=== PATIENT | male | born 1945 | race Caucasian/White ===

== ENCOUNTER → 2017-07-21 12:32 | Outpatient (CLI) | payer MEDICARE, SELFPAY ==
[2017-07-21 13:34] LABS: PSA,Total- Diagnostic < 0.01 ng/mL (0.0-4.0)
== END ==
PROVIDERS: Family Provider Family Medicine Geriatric Medicine; PCP Family Medicine Geriatric Medicine
DX: C61 Malignant neoplasm of prostate (principal)
CPT/HCPCS: 36415; 84153

== ENCOUNTER → 2017-09-21 13:14 | Outpatient (CLI) | payer MEDICARE, SELFPAY ==
[2017-09-21 17:05] LABS: Absolute Lymphocyte Count 1.82 X10^3/ul (0.83-4.51); Absolute Neutrophil Count 4.1 X10^3/uL (2.0-7.7); Basophil# 0.05 X10^3/uL; Basophil% 0.8 % (0-1); Eosinophil# 0.13 X10^3/uL; Hematocrit 40.2 % (40-54); Hemoglobin 13.1 g/dl (13.0-16.5); Lymphocyte # 1.82 X10^3/ul (4.0); Lymphocyte % 27.5 % (19-41); Mean Corp Hgb Conc 32.6 g/gl (32-36); Mean Corpuscular Hgb 25.5 pg (27.0-32.0); Mean Corpuscular Volume 78.2 fL (80-94); Mean Platelet Vol. 11.2 fl (6.2-12.0); Monocyte# 0.53 X10^3/uL; Neutrophil # 4.06 X10^3/uL (2.7-7.7); Neutrophil % 61.2 % (47-70); Platelet Count 248 K/mm3 (150-450); RBC Distribution Width CV 14.7 % (11.6-14.6); RBC Distribution Width SD 41.3 fl (35.1-43.9); Red Blood Count 5.14 M/mm3 (4.6-6.2); White Blood Count 6.6 K/mm3 (4.4-11.0)
[2017-09-21 17:37] LABS: POSITIVE COUNT NO; POSITIVE DIFFERENTIAL NO; POSITIVE MORPHOLOGY NO
[2017-09-21 17:53] LABS: AST(SGOT) 18 U/L (15-37); Alanine Aminotransfer ALT/SGPT 25 U/L (16-61); Albumin, Serum 3.8 g/dL (3.2-5.0); Alkaline Phosphatase 89 U/L (45-117); Anion Gap 9 (5-15); BUN 17 mg/dL (7-18); BUN/Creat Ratio 15.7 RATIO (10-20); Calcium,Total 9.1 mg/dL (8.5-10.1); Chloride 105 mmol/L (98-107); Creatinine, Serum 1.08 mg/dL (0.70-1.30); EST Glomerular Filtration Rate 71 mL/min (>60); Est Glom Filt Rate - Afr Amer 86 mL/min (>60); Globulin 3.8 g/dL (2.2-4.2); Glucose 75 mg/dL (74-106); Potassium 4.5 mmol/L (3.5-5.1); Protein, Total 7.6 g/dL (6.4-8.2); Sodium Level 142 mmol/L (136-145); Thyroid Stim Hormone (TSH) 1.61 uIU/mL (0.358-3.74)
[2017-09-22 08:57] LABS: Vitamin D,25 Hydroxy 35.5 ng/mL (29.95-100.01)
== END ==
PROVIDERS: Family Provider Family Medicine Geriatric Medicine; PCP Family Medicine Geriatric Medicine; Visit Provider Family Medicine Geriatric Medicine
DX: E11.9 Type 2 diabetes mellitus without complications (principal); E55.9 Vitamin D deficiency, unspecified; I10 Essential (primary) hypertension
CPT/HCPCS: 36415; 80053; 82306; 84443; 85025

== ENCOUNTER → 2018-03-24 12:19 | Outpatient (CLI) | payer MEDICARE, SELFPAY ==
[2018-03-24 14:03] LABS: Absolute Lymphocyte Count 1.49 X10^3/ul (0.83-4.51); Absolute Neutrophil Count 3.3 X10^3/uL (2.0-7.7); Basophil# 0.07 X10^3/uL; Basophil% 1.3 % (0-1); Eosinophil# 0.14 X10^3/uL; Eosinophils% 2.6 % (0-5); Hematocrit 40.8 % (40-54); Hemoglobin 12.8 g/dl (13.0-16.5); Lymphocyte # 1.49 X10^3/ul (4.0); Lymphocyte % 27.2 % (19-41); Mean Corp Hgb Conc 31.4 g/gl (32-36); Mean Corpuscular Hgb 24.9 pg (27.0-32.0); Mean Corpuscular Volume 79.2 fL (80-94); Mean Platelet Vol. 11.1 fl (6.2-12.0); Monocyte% 9.1 % (0-10); Neutrophil # 3.26 X10^3/uL (2.7-7.7); Neutrophil % 59.6 % (47-70); Platelet Count 225 K/mm3 (150-450); RBC Distribution Width CV 14.3 % (11.6-14.6); RBC Distribution Width SD 40.3 fl (35.1-43.9); Red Blood Count 5.15 M/mm3 (4.6-6.2); White Blood Count 5.5 K/mm3 (4.4-11.0)
[2018-03-24 14:07] LABS: POSITIVE COUNT NO; POSITIVE DIFFERENTIAL NO; POSITIVE MORPHOLOGY NO
[2018-03-24 14:17] LABS: Vitamin D,25 Hydroxy 41.2 ng/mL (29.95-100.01)
[2018-03-24 14:29] LABS: AST(SGOT) 11 U/L (15-37); Alanine Aminotransfer ALT/SGPT 23 U/L (16-61); Albumin, Serum 3.5 g/dL (3.2-5.0); Alkaline Phosphatase 89 U/L (45-117); Anion Gap 8 (5-15); BUN 17 mg/dL (7-18); BUN/Creat Ratio 16.8 RATIO (10-20); Calcium,Total 8.6 mg/dL (8.5-10.1); Chloride 103 mmol/L (98-107); Creatinine, Serum 1.01 mg/dL (0.70-1.30); EST Glomerular Filtration Rate 77 mL/min (>60); Est Glom Filt Rate - Afr Amer 93 mL/min (>60); Globulin 3.6 g/dL (2.2-4.2); Glucose 239 mg/dL (74-106); Potassium 4.1 mmol/L (3.5-5.1); Protein, Total 7.1 g/dL (6.4-8.2); Sodium Level 136 mmol/L (136-145); Thyroid Stim Hormone (TSH) 1.29 uIU/mL (0.358-3.74)
--- OUTSIDE RECORDS SUMMARY | 2018-05-29 04:20 | XMS RPT_ITS ---
:1945 Author Organization OHIP Care Team Providers Name Role Phone Elmo, Augusto Chi Attending Unavailable Elmo, Augusto Chi Primary Care Unavailable CHERYL WHITE Attending Unavailable CHERYL WHITE Referring Unavailable Elmo, Augusto Chi Primary Care Unavailable Elmo, Augusto Chi Attending Unavailable Elmo, Augusto Chi Primary Care Unavailable ANA ROLDAN Attending Unavailable OMEGA RAWLS Referring Unavailable ANA ROLDAN Attending Unavailable DANOMEGA MACDONALD Referring Unavailable ELMO, AUGUSTO-CHI Primary Care Unavailable PROBLEMS PROBLEMS DATE TYPE CONDITION / ATTENDING STATUS SOURCE CODE 07/20/2017 Active Malignant JARVIS, Active [facility] neoplasm of [facility] Other [place] prostate / Repository C61(ICD-10) 07/20/2017 Admitting Unknown / JARVIS, Active [facility] diagnosis UNK(Unknown) [facility] Repository PROCEDURES PROCEDURES No Procedure Records FoundRESULTS RESULTS CBC W/DIFF, AUTOMATED Collected: 03/24/2018 Status: F Source: [place] 12:20 PM [facility] REPOSITORY TYPE CODE TESTS RESULT OUT OF RANGE REFERENCE UNITS LAB L100.1000 4.4-11.0 K/mm3 Normal WBC 5.5 LAB L100.1200 4.6-6.2 M/mm3 Normal RBC 5.15 LAB L100.1300 13.0-16.5 g/dl Low HGB 12.8 LAB L100.1400 40-54 % Normal HCT 40.8 LAB L100.1500 80-94 fL Low MCV 79.2 LAB L100.1600 27.0-32.0 pg Low MCH 24.9 LAB L100.1700 32-36 g/gl Low MCHC 31.4 LAB L100.1810 11.6-14.6 % Normal RDW CV 14.3 LAB L100.1820 35.1-43.9 fl Normal RDW SD 40.3 LAB L100.1900 150-450 K/mm3 Normal PLT 225 LAB L100.2000 6.2-12.0 fl Normal MPV 11.1 LAB L100.2100 47-70 % Normal NEUT% 59.6 LAB L100.2200 19-41 % Normal LY% 27.2 LAB L100.2300 0-10 % Normal MONO% 9.1 LAB L100.2400 0-5 % Normal EO% 2.6 LAB L100.2500 0-1 % High BASO% 1.3 LAB L100.2550 0.0-0.9 % Normal IM GRAN % 0.200 Result Comment: IG% - Immature Granulocytes (promyelocytes, myelocytes and metamyelocytes) > 1% indicates that a LEFT SHIFT is Present. LAB L100.2620 2.0-7.7 X10 3/uL Normal Absolute Neut 3.3 LAB L100.2720 0.83-4.51 X10 3/ul Normal Absolute Lymph 1.49 Performed By: #### L100.0100 #### [facility] [address], [place], [address] VITAMIN D,25 HYDROXY Collected: 03/24/2018 Status: F Source: [place] 12:20 PM [facility] REPOSITORY TYPE CODE TESTS RESULT OUT OF RANGE REFERENCE UNITS LAB L506.1000 29.95-100.01 ng/mL Normal Vitamin D 41.2 25-OH Result Comment: Vitamin D 25(OH) Status Range Deficiency <20 ng/mL (50nmol/L) Insuffciency 20 - 30 ng/mL (50 - 75 nmol/L) Sufficiency 30 - 100 ng/mL (75 - 250 nmol/L) Toxicity >100 ng/mL (>250 nmol/L) Performed By: #### L506.1000 #### [facility] [address] [place], [address] COMPREHENSIVE METABOLIC Collected: 03/24/2018 Status: F Source: [place] MTZ 12:20 PM [facility] REPOSITORY TYPE CODE TESTS RESULT OUT OF RANGE REFERENCE UNITS LAB L501.0100 74-106 mg/dL High GLU 239 Result Comment: Glucose result greater than or equal to 200 mg/dL suggests DIABETES MELLITUS per A.D.A. criteria. Please note revised GLUCOSE reference range effective 2017. LAB L501.1000 7-18 mg/dL Normal BUN 17 LAB L501.1100 0.70-1.30 mg/dL Normal CREAT,SERUM 1.01 Result Comment: The validity of the calculated GFR AND GFRAA in patients over 70 years has not been determined. Clinical correlation is essential. LAB L501.1110 >60 mL/min Normal EST GFR 77 Result Comment: Non- GFR Calc LAB L501.1115 >60 mL/min Normal EST GFR - AA 93 Result Comment: GFR Calc LAB L501.1300 10-20 RATIO Normal BUN/CRE 16.8 LAB L501.1500 6.4-8.2 g/dL T Normal PROT 7.1 LAB L501.1800 3.2-5.0 g/dL Normal ALB 3.5 LAB L501.1950 2.2-4.2 g/dL Normal GLOB 3.6 LAB L501.2000 0.9-2.4 RATIO Normal A/G 1.0 LAB L501.2200 8.5-10.1 mg/dL CA Normal 8.6 LAB L501.4100 15-37 U/L Low AST 11 LAB L501.4305 45-117 U/L Normal ALK P 89 LAB L501.4405 16-61 U/L Normal ALT 23 LAB L501.4600 0.20-1.00 mg/dL T Normal BILI 0.40 LAB L501.5300 136-145 mmol/L NA Normal 136 LAB L501.5600 3.5-5.1 mmol/L K Normal 4.1 LAB L501.5900 98-107 mmol/L CL Normal 103 LAB L501.6100 21.0-32.0 mmol/L Normal CO2 25.0 LAB L501.6200 5-15 Normal GAP 8 Performed By: #### L500.4050, L501.9585 #### [facility] [address] [place], [place], [address] THYROID STIM HORMONE Collected: 03/24/2018 Status: F Source: [place] (TSH) 12:20 PM [facility] REPOSITORY TYPE CODE TESTS RESULT OUT OF RANGE REFERENCE UNITS LAB L501.9520 0.358-3.74 uIU/mL Normal TSH 1.29 Performed By: #### L500.4050, L501.9520 #### [facility] [address] [facility] [place], [address] CBC W/DIFF, AUTOMATED Collected: 09/21/2017 Status: F Source: [place] 1:17 PM [facility] REPOSITORY TYPE CODE TESTS RESULT OUT OF RANGE REFERENCE UNITS LAB L100.1000 4.4-11.0 K/mm3 Normal WBC 6.6 LAB L100.1200 4.6-6.2 M/mm3 Normal RBC 5.14 LAB L100.1300 13.0-16.5 g/dl Normal HGB 13.1 LAB L100.1400 40-54 % Normal HCT 40.2 LAB L100.1500 80-94 fL Low MCV 78.2 LAB L100.1600 27.0-32.0 pg Low MCH 25.5 LAB L100.1700 32-36 g/gl Normal MCHC 32.6 LAB L100.1810 11.6-14.6 % High RDW CV 14.7 LAB L100.1820 35.1-43.9 fl Normal RDW SD 41.3 LAB L100.1900 150-450 K/mm3 Normal PLT 248 LAB L100.2000 6.2-12.0 fl Normal MPV 11.2 LAB L100.2100 47-70 % Normal NEUT% 61.2 LAB L100.2200 19-41 % Normal LY% 27.5 LAB L100.2300 0-10 % Normal MONO% 8.0 LAB L100.2400 0-5 % Normal EO% 2.0 LAB L100.2500 0-1 % Normal BASO% 0.8 LAB L100.2550 0.0-0.9 % Normal IM GRAN % 0.500 Result Comment: IG% - Immature Granulocytes (promyelocytes, myelocytes and metamyelocytes) > 1% indicates that a LEFT SHIFT is Present. LAB L100.2620 2.0-7.7 X10 3/uL Normal Absolute Neut 4.1 LAB L100.2720 0.83-4.51 X10 3/ul Normal Absolute Lymph 1.82 Performed By: #### L100.0100 #### [facility] [address] [place], [address] COMPREHENSIVE METABOLIC Collected: 09/21/2017 Status: F Source: [place] [facility] 1:17 PM [facility] REPOSITORY TYPE CODE TESTS RESULT OUT OF RANGE REFERENCE UNITS LAB L501.0100 74-106 mg/dL Normal GLU 75 Result Comment: Please note revised GLUCOSE reference range effective 2017. LAB L501.1000 7-18 mg/dL Normal BUN 17 LAB L501.1100 0.70-1.30 mg/dL Normal CREAT,SERUM 1.08 Result Comment: The validity of the calculated GFR AND GFRAA in patients over 70 years has not been determined. Clinical correlation is essential. LAB L501.1110 >60 mL/min Normal EST GFR 71 Result Comment: Non- GFR Calc LAB L501.1115 >60 mL/min Normal EST GFR - AA 86 Result Comment: GFR Calc LAB L501.1300 10-20 RATIO Normal BUN/CRE 15.7 LAB L501.1500 6.4-8.2 g/dL T Normal PROT 7.6 LAB L501.1800 3.2-5.0 g/dL Normal ALB 3.8 LAB L501.1950 2.2-4.2 g/dL Normal GLOB 3.8 LAB L501.2000 0.9-2.4 RATIO Normal A/G 1.0 LAB L501.2200 8.5-10.1 mg/dL CA Normal 9.1 LAB L501.4100 15-37 U/L Normal AST 18 LAB L501.4305 45-117 U/L Normal ALK P 89 LAB L501.4405 16-61 U/L Normal ALT 25 LAB L501.4600 0.20-1.00 mg/dL T Normal BILI 0.20 LAB L501.5300 136-145 mmol/L NA Normal 142 LAB L501.5600 3.5-5.1 mmol/L K Normal 4.5 LAB L501.5900 98-107 mmol/L CL Normal 105 LAB L501.6100 21.0-32.0 mmol/L Normal CO2 28.0 LAB L501.6200 5-15 Normal GAP 9 Performed By: #### L500.4050, L501.9520 #### [facility] [address] [place], [address] THYROID STIM HORMONE Collected: 09/21/2017 Status: F Source: [place] (TSH) 1:17 PM [facility] REPOSITORY TYPE CODE TESTS RESULT OUT OF RANGE REFERENCE UNITS LAB L501.9520 0.358-3.74 uIU/mL Normal TSH 1.61 Performed By: #### L500.4050, L501.9520 #### [facility] [address] [facility] [place], [address] VITAMIN D,25 HYDROXY Collected: 09/21/2017 Status: F Source: [place] 1:17 PM [facility] REPOSITORY TYPE CODE TESTS RESULT OUT OF RANGE REFERENCE UNITS LAB L506.1000 29.95-100.01 ng/mL Normal Vitamin D 35.5 25-OH Result Comment: Vitamin D 25(OH) Status Range Deficiency <20 ng/mL (50nmol/L) Insuffciency 20 - 30 ng/mL (50 - 75 nmol/L) Sufficiency 30 - 100 ng/mL (75 - 250 nmol/L) Toxicity >100 ng/mL (>250 nmol/L) Performed By: #### L506.1000 #### [facility] [address] [facility] [place], [place], [address] PSA,TOTAL- DIAGNOSTIC Collected: 07/21/2017 Status: F Source: [place] 12:43 PM [facility] REPOSITORY TYPE CODE TESTS RESULT OUT OF RANGE REFERENCE UNITS LAB L501.9940 0.0-4.0 ng/mL PSA, Normal DIAGNOSTIC < 0.01 Result Comment: This test was performed using the TPSA assay method for the Corso12 chemistry system. Values obtained with different assay methods cannot be used interchangably. When changing PSA assays in the course of monitoring a patient, additional sequential testing should be carried out to confirm baseline values. Performed By: #### L501.9940 #### [facility] [place], [address] PROGRESS Observed: 07/20/2017 Status: COMPLETED Source: [place] 11:11 AM CLINIC OTHER CAMPUS REPOSITORY HNO ID: [id number] Author: Ana Roldan DO Service: (none) Author Type: Physician Type: Progress Notes Filed: 07/20/2017 11:15 AM Note Text: ?? [facility] [place] [facility] LOCATION: [address] [place] [address] ESTABLISHED PATIENT PATIENT INFO: Jimbo Ashford JR 72 year old Chief Complaint: Prostate cancer HPI Jimbo is a 72 M with hx of Prostate Cancer S/P RRP 05/09/2008 PSA 4.6 +right margin PSA has been undetectable Has ED 1-Duration: 2017 2-Location: prostate 3-Severity: N/A 4-Quality: Not applicable 5-Context: N/A 6-Timing: N/A 7-Modifying factors: No treatment prior to referral 8-Associated signs AND symptoms: no additional symptoms PATHOLOGY: In chart LAB: No results found for: WBC, RBC, HB, HCT, MCV, MCH, MCHC, RDWCV, PLT, MPV, NEUTP, LYMPHP, MONOP, EODINP, BASOP, ABSNEUT, ABSLYM, ABSMONO, ABSEOSIN, ABSBASO No results found for: CREAT PSA (ng/mL) Date Value 07/14/2016 <0.04 12/20/2012 <0.01 pH, Urine Date Value Ref Range Status 07/20/2017 6.5 4.5 - 8.0 Final Specific [place], Ur Date Value Ref Range Status 07/20/2017 1.010 1.005 - 1.030 Final Glucose, Urine Date Value Ref Range Status 07/20/2017 neg Neg mg/dL Final Bilirubin, Urine Date Value Ref Range Status 07/20/2017 neg Neg Final Ketones, Urine Date Value Ref Range Status 07/20/2017 neg Neg Final Hemoglobin/Blood,Ur Date Value Ref Range Status 07/20/2017 neg Neg Final Protein, Urine Date Value Ref Range Status 07/20/2017 neg Neg mg/dL Final Nitrites Date Value Ref Range Status 07/20/2017 neg Neg Final Leukocytes Date Value Ref Range Status 07/20/2017 neg Neg Final IMAGING: None ALLERGIES: ALLERGIES No Known Allergies MEDICATIONS: telmisartan/hydrochlorothiazid(MICARDIS HCT 80 MG-12.5 MG TAB) Take one(1) tablet daily. metformin hcl(GLUCOPHAGE 500 MG TAB) Take one to tablets daily. LISINOPRIL 5 MG TAB Take one(1) tablet daily. LOVASTATIN 40 MG TAB Take one(1) tablet daily. aspirin(HALFPRIN 81 MG TAB) Take one(1) tablet daily. INSULIN DETEMIR 100 UNIT/ML SUB-Q Pt takes 30 units daily. 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 PHYSICAL EXAMINATION Ht 175.3 cm (5' 9) Wt 83.9 kg (185 lb) BMI 27.32 kg/m? General appearance: Well appearing, alert, in no acute distress, well-hydrated, well nourished Skin: Skin color, texture, turgor normal, no suspicious rashes or lesions Head: Normocephalic, no masses, lesions, tenderness or abnormalities Abdomen: Normal abdominal exam, Abdomen soft, non-tender. Bowel sounds normal. No masses, organomegaly Genitourinary: MALE EXAM: Exam NOT Indicated PVR: NA IMPRESSION/PLAN: Prostate cancer RRP 05/2008 PSA last year 0.04 Needs new PSA F/U in 1 year UA and PVR next visit DO BHARAT Carpenter Observed: 07/20/2017 Status: COMPLETED Source: [place] 10:45 AM CLINIC OTHER CAMPUS REPOSITORY Office Visit (AKURFL) JIMBO ASHFORD JR ([id number]) 1945 M Date Time Provider Department 07/20/17 10:45 AM ANA ROLDAN During your visit today, we recorded the following information about you: Weight Height 83.9 kg 1.753 m Ana Roldan DO, MBA, DO 07/20/2017 11:15 AM Signed ?? [facility] [place] [facility] LOCATION: [address] [place] [address] ESTABLISHED PATIENT PATIENT INFO: Jimbo Ashford JR 72 year old Chief Complaint: Prostate cancer HPI Jimbo is a 72 M with hx of Prostate Cancer S/P RRP 05/09/2008 PSA 4.6 +right margin PSA has been undetectable Has ED 1-Duration: 2017 2-Location: prostate 3-Severity: N/A 4-Quality: Not applicable 5-Context: N/A 6-Timing: N/A 7-Modifying factors: No treatment prior to referral 8-Associated signs AND symptoms: no additional symptoms PATHOLOGY: In chart LAB: No results found for: WBC, RBC, HB, HCT, MCV, MCH, MCHC, RDWCV, PLT, MPV, NEUTP, LYMPHP, MONOP, EODINP, BASOP, ABSNEUT, ABSLYM, ABSMONO, ABSEOSIN, ABSBASO No results found for: CREAT PSA (ng/mL) Date Value 07/14/2016 <0.04 12/20/2012 <0.01 pH, Urine Date Value Ref Range Status 07/20/2017 6.5 4.5 - 8.0 Final Specific [place], Ur Date Value Ref Range Status 07/20/2017 1.010 1.005 - 1.030 Final Glucose, Urine Date Value Ref Range Status 07/20/2017 neg Neg mg/dL Final Bilirubin, Urine Date Value Ref Range Status 07/20/2017 neg Neg Final Ketones, Urine Date Value Ref Range Status 07/20/2017 neg Neg Final Hemoglobin/Blood,Ur Date Value Ref Range Status 07/20/2017 neg Neg Final Protein, Urine Date Value Ref Range Status 07/20/2017 neg Neg mg/dL Final Nitrites Date Value Ref Range Status 07/20/2017 neg Neg Final Leukocytes Date Value Ref Range Status 07/20/2017 neg Neg Final IMAGING: None ALLERGIES: ALLERGIES No Known Allergies MEDICATIONS: telmisartan/hydrochlorothiazid(MICARDIS HCT 80 MG-12.5 MG TAB) Take one(1) tablet daily. metformin hcl(GLUCOPHAGE 500 MG TAB) Take one to tablets daily. LISINOPRIL 5 MG TAB Take one(1) tablet daily. LOVASTATIN 40 MG TAB Take one(1) tablet daily. aspirin(HALFPRIN 81 MG TAB) Take one(1) tablet daily. INSULIN DETEMIR 100 UNIT/ML SUB-Q Pt takes 30 units daily. 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 PHYSICAL EXAMINATION Ht 175.3 cm (5' 9) Wt 83.9 kg (185 lb) BMI 27.32 kg/m? General appearance: Well appearing, alert, in no acute distress, well-hydrated, well nourished Skin: Skin color, texture, turgor normal, no suspicious rashes or lesions Head: Normocephalic, no masses, lesions, tenderness or abnormalities Abdomen: Normal abdominal exam, Abdomen soft, non-tender. Bowel sounds normal. No masses, organomegaly Genitourinary: MALE EXAM: Exam NOT Indicated PVR: NA IMPRESSION/PLAN: Prostate cancer RRP 05/2008 PSA last year 0.04 Needs new PSA F/U in 1 year UA and PVR next visit Ana Roldan DO MBA Referring Provider: OMEGA RAWLS (HIST) [[id number]] Allergies As of Date: 07/20/2017 (No Known Allergies) Date Reviewed: 07/20/2017 Reviewed by: Ana Roldan DO - Fully Assessed Reason for Visit: Yearly Exam [187] Prostate Cancer [590] Primary Visit Diagnosis:Prostate cancer (HCC) [C61] Order(s):UA DIP B/O [3687522] Order #: [id number] PSA/PROSTSPECAG DIAG [SQPSA] Order #: [id number] FUTURE Prescriptions as of 07/20/2017 Sig: * MICARDIS HCT 80 MG-12.5 MG TA* Take one(1) tablet daily. * GLUCOPHAGE 500 MG TABLET Take one to tablets daily. * LISINOPRIL 5 MG TABLET Take one(1) tablet daily. * LOVASTATIN 40 MG TABLET Take one(1) tablet daily. * HALFPRIN 81 MG TABLET,DELAYED* Take one(1) tablet daily. * INSULIN DETEMIR (U-100) 100 U* Pt takes 30 units daily. Problem List As Of Date 07/20/2017 Noted Resolved SEBORRHEIC KERATOSES INFLAMED [L82.0] INVALID FOR* SEBORRHEIC KERATOSIS NOS [L82.1] INVALID FOR* ACTINIC DAMAGE///CHR SOLAR SKIN DAMAGE NOS [L57*INVALID FOR* SEBORRHEIC DERMATITIS NOS [L21.9] INVALID FOR* SOLAR LENTIGENES///DYSCHROMIA OTHER [L81.9] INVALID FOR* Radiculopathy [M54.10] Disposition: Return in about 1 year (around 07/20/2018). Follow-up and Disposition History Recorded Encounter Status:Closed by ANA ROLDAN DO, MBA on 07/20/17 ALLERGIES ALLERGIES DATE TYPE / CODE NAME / CODE REACTION SEVERITY SOURCE Drug NO KNOWN [facility] Class/50602 ALLERGIES Other [place] 1003(SNOMED Repository CT) [id number] NO KNOWN [facility] 6([facility] CT) Repository ENCOUNTERS ENCOUNTERS ADMIT/DISCHARGE ACCOUNT NUMBER ADMITTING ENCOUNTER LOCATION SOURCE CLASS 03/24/2018 [id number] Ambulatory [facility] ding:POLAB3 Repository 09/21/2017 [id number] Ambulatory [facility] ding:POLAB3 Repository 07/21/2017 [id number] [facility] ding:LAB Repository 07/20/2017/07/21/19 [id number] Ambulatory [address] Other [place] Repository 07/20/2017/07/21/19 [id number] Ambulatory [place] MEDICAL Repository CENTERBuildi ng:MARIANO PAYERS PAYERS ENCOUNTER GUARANTOR PAYER SUBSCRIBER SOURCE 03/24/2018 JIMBO ASHFORD Primary JIMBO [place] [id number] Insurance:ANTHEM [place]OB[place] PPOPolicy [id number] [id number]: [phone]) Number: Repository [phone] () [id number] Date:0869-21-49XY [address] [place] [id number]: 03/24/2018 Secondary NOT GIVENUNK [place] Insurance:SELF PAY [facility] Number: Effective Repository Date:2018-03-24 09/21/2017 JIMBO ASHFORD Primary JIMBO [place] [id number] Insurance:ANTHNAYELY JRDOB: [place] PPOPolicy [id number] [id number]: [phone]) Number: Repository [phone] () [id number] Date:1175-17-45HE [id number] [place] [id number]: 09/21/2017 Secondary NOT GIVENUNK [place] Insurance:SELF PAY [facility] Number: Effective Repository Date:2017-09-21 07/21/2017 JIMBO ASHFORD Primary JIMBO [place] [id number] [facility] Insurance:ANTHEM JRDOB: [place] PPOPolicy [id number] Hospital [address]Kls: (330) Number: Repository [phone] () [id number] Date:1490-55-09VK [id number] [place] [id number]: 07/21/2017 Secondary NOT GIVENUNK [place] Insurance:SELF PAY [facility] Number: Effective Repository Date:2017-07-21 07/20/2017 JIMBO ASHFORD Primary JIMBO A[facility] JRDOB: Insurance:CRISSY PINAB: Health System [facility] [id number] Repository [place], [place] Number: [id number]: [phone]) [id number] [phone] () Date:
== END ==
PROVIDERS: Family Provider Family Medicine Geriatric Medicine; PCP Family Medicine Geriatric Medicine; Visit Provider Family Medicine Geriatric Medicine
DX: E11.9 Type 2 diabetes mellitus without complications (principal); E55.9 Vitamin D deficiency, unspecified; I10 Essential (primary) hypertension
CPT/HCPCS: 36415; 80053; 82306; 84443; 85025

== ENCOUNTER → 2018-05-31 11:33 | Outpatient (CLI) | payer MEDICARE, SELFPAY ==
--- NOTE | 2018-05-31 11:38 | CT_ITS ---
STUDY: CTA OF THE BRAIN REASON FOR EXAM: Male, 73 years old. Family history of cerebral aneurysm, denies neuro symptoms, headache or dizziness. RADIATION DOSAGE (If Supplied By Facility): CTDIvol = ( 31.27 ) mGy, DLP = ( 1477.29 ) mGycm TECHNIQUE: CT angiography was performed with a multi-detector CT scanner. Data acquisition was obtained from the skull base through the vertex following intravenous administration of 100mL IV Isovue 370. MIP images were reconstructed from the axial data set. Post-processing of the angiographic images was performed, with multiplanar reformation and 3D reconstruction. Individualized dose optimization techniques were used for this CT. COMPARISON: None. FINDINGS: Normal bilateral petrous carotid arteries. Normal right cavernous carotid artery with a normal supraclinoid bifurcation. Normal left cavernous carotid artery with a normal supraclinoid bifurcation. Normal right A1 segments of the anterior cerebral artery. Normal left A1 segments of the anterior cerebral artery. Normal intact anterior communicating artery (ACOM). Normal bilateral A2 segments of the anterior cerebral arteries. Normal right M1 and M2 segments of the middle cerebral arteries, with a normal M1 bifurcation. Normal left M1 and M2 segments of the middle cerebral arteries, with a normal M1 bifurcation. Normal right posterior communicating artery (PCOM). Normal left posterior communicating artery (PCOM). Normal bilateral vertebral arteries. Normal basilar artery with a normal basilar bifurcation. The visualized bilateral superior cerebellar (SCA) arteries are normal. Normal bilateral P1, P2 and visualized P3 segments of the posterior cerebral arteries. There is no demonstrated aneurysm of the platinum of [place]. There is no demonstrated abnormality of the visualized brain. CT/CTA Head W/WO Contrast IMPRESSION: Normal platinum of [place] without a demonstrated aneurysm or hemodynamically significant stenosis. Electronically Signed: Silverio Salmeron MD at 23:18 EDT , Service support ,
--- NOTE | 2018-05-31 11:39 | CT_ITS ---
STUDY: CTA NECK WITH CONTRAST REASON FOR EXAM: Male, 73 years old. Family history of cerebral aneurysm, denies neuro symptoms, headache or dizziness. RADIATION DOSAGE (If Supplied By Facility): CTDIvol = ( 31.27 ) mGy, DLP = ( 1477.29 ) mGycm TECHNIQUE: CT angiography with multi-detector data acquisition was performed from the aortic arch to the skull base following intravenous administration of 100mL IV Isovue 370. MIP images were reconstructed from the axial data set. Post-processing of the angiographic images was performed, with multiplanar reformation and 3D reconstruction. Individualized dose optimization techniques were used for this CT. COMPARISON: None. FINDINGS: AORTIC ARCH: There is a bovine origin of the great vessels arising from the aortic arch with a common origin of the brachiocephalic and left common carotid artery. Normal origin of the left subclavian artery. RIGHT CAROTID ARTERIES: Normal right common carotid artery (CCA). There is mild atherosclerotic plaque formation with minimal narrowing of the right carotid bulb. Normal origin of the right internal carotid (ICA) artery without a hemodynamically significant stenosis. Normal visualized cervical portion of the right internal carotid artery. Normal origin of the right external carotid artery (ECA). LEFT CAROTID ARTERIES: Normal left common carotid artery (CCA). There is mild atherosclerotic plaque formation with minimal narrowing of the left carotid bulb. Normal origin of the left internal carotid (ICA) artery without a hemodynamically significant stenosis. Normal visualized cervical portion of the left internal carotid artery. Normal origin of the left external carotid artery (ECA). VERTEBRAL ARTERIES: Normal bilateral vertebral arteries. CT/CTA Neck W/WO Contrast IMPRESSION: Within normal limits for age. No occlusions and no measurable stenoses. Electronically Signed: Silverio Salmeron MD at 23:23 EDT , Service support ,
--- NOTE | 2018-05-31 11:41 | RAD_ITS ---
STUDY: X-RAY - LEFT KNEE REASON FOR EXAM: Male, 73 years old. Fall. Knee sprain. TECHNIQUE: 2 view(s) of the knee. COMPARISON: None. FINDINGS: Normal visualized distal femur. Normal visualized proximal tibia and fibula. Normal proximal tibiofibular articulation. There is no acute fracture, dislocation or destructive osseous pathology. There is mild degenerative arthrosis of the medial femorotibial compartment. Normal lateral femorotibial compartment. There is mild degenerative arthrosis of the patellofemoral articulation. There is no demonstrated joint effusion. The soft tissue structures are unremarkable. RAD/Knee 1 or 2 Views IMPRESSION: Minimal arthrosis left knee without fracture or dislocation. Electronically Signed: Tray Gómez DO at 12:56 EDT Tel [phone], Service support ,
[2018-05-31 12:06] LABS: CREATININE FINGERSTICK 1.4 mg/dL (0.70-1.30)
== END ==
PROVIDERS: Family Provider Family Medicine Geriatric Medicine; PCP Family Medicine Geriatric Medicine; Referring Provider Family Medicine Geriatric Medicine; Visit Provider Family Medicine Geriatric Medicine
DX: I67.1 Cerebral aneurysm, nonruptured (principal); S83.92XA Sprain of unspecified site of left knee, initial encounter
CPT/HCPCS: 70496; 70498; 73560; Q9967

== ENCOUNTER → 2018-07-29 09:51 | Outpatient (CLI) | payer MEDICARE, SELFPAY ==
--- NOTE | 2018-07-29 09:58 | MRI_ITS ---
STUDY: MRI LEFT KNEE REASON FOR EXAM: Left knee pain after slipping injury. TECHNIQUE: Standardized fat and water weighted pulse sequences were obtained in all 3 orthogonal planes. COMPARISON: Radiographs 05/31/2018. FINDINGS: There is very mild intrasubstance myxoid degeneration of the posterior horn of the medial meniscus without discrete medial meniscal tear. Normal hyaline cartilage of the medial femorotibial compartment. Normal medial femoral condyle and tibial plateau. There is a mild sprain of the proximal medial collateral ligament (T2 coronal image 16). Normal distal semimembranosus, gracilis and semitendinosus tendons. Normal lateral meniscus. Normal hyaline cartilage of the lateral femorotibial compartment. Normal lateral femoral condyle and tibial plateau. Normal proximal tibiofibular articulation. Normal lateral collateral (fibular) ligament. Normal popliteus tendon. Normal biceps femoris tendon. Normal anterior cruciate ligament (ACL). Normal posterior cruciate ligament (PCL). Normal congruent patellofemoral articulation. There is arthrosis of the patellofemoral compartment with partial-thickness chondral loss (T2 sagittal image 10) and subchondral cystic change of the patella and femoral trochlea. Normal medial and lateral patellar retinaculum. Normal visualized quadriceps tendon. Normal patellar tendon. Normal Hoffa's fat pad. There is no joint effusion. The soft tissues are unremarkable. The otherwise visualized osseous structures are unremarkable. MRI/Lower Ext Joint Only (Routine) IMPRESSION: Mild sprain of the medial collateral ligament. Patellofemoral arthrosis. Electronically Signed: Juan Ramon Grullon MD at 11:38 EDT Tel , Service support ,
== END ==
PROVIDERS: Family Provider Family Medicine Geriatric Medicine; PCP Family Medicine Geriatric Medicine; Referring Provider Family Medicine Geriatric Medicine; Visit Provider Family Medicine Geriatric Medicine
DX: S83.402A Sprain of unspecified collateral ligament of left knee, initial encounter (principal)
CPT/HCPCS: 73721

== ENCOUNTER → 2018-09-22 10:30 | Outpatient (CLI) | payer MEDICARE, SELFPAY ==
[2018-08-03 13:05] VITALS: BMI 26.6
[2018-09-22 12:36] LABS: Absolute Lymphocyte Count 1.69 X10^3/uL (0.83-4.51); Absolute Neutrophil Count 3.9 X10^3/uL (2.0-7.7); Basophil# 0.06 X10^3/uL; Basophil% 0.9 % (0-1); Eosinophil# 0.14 X10^3/uL; Eosinophils% 2.2 % (0-5); Hematocrit 42.8 % (40-54); Hemoglobin 13.2 g/dL (13.0-16.5); Lymphocyte # 1.69 X10^3/ul (4.0); Lymphocyte % 26.5 % (19-41); Mean Corp Hgb Conc 30.8 g/dL (32-36); Mean Corpuscular Hgb 24.9 pg (27.0-32.0); Mean Corpuscular Volume 80.6 fL (80-94); Mean Platelet Vol. 11.5 fl (6.2-12.0); Monocyte# 0.57 X10^3/uL; Monocyte% 8.9 % (0-10); NRBC Flagged by Analyzer 0 % (0-5); Neutrophil # 3.86 X10^3/uL (2.7-7.7); Neutrophil % 60.7 % (47-70); Platelet Count 238 K/mm3 (150-450); RBC Distribution Width CV 14.5 % (11.6-14.6); RBC Distribution Width SD 42.1 fl (35.1-43.9); Red Blood Count 5.31 M/mm3 (4.6-6.2); White Blood Count 6.4 K/mm3 (4.4-11.0)
[2018-09-22 12:53] LABS: ALB/GLOB Ratio 0.9 RATIO (0.9-2.4); AST(SGOT) 9 U/L (15-37); Alanine Aminotransfer ALT/SGPT 24 U/L (16-61); Albumin, Serum 3.6 g/dL (3.2-5.0); Alkaline Phosphatase 103 U/L (45-117); Anion Gap 7 (5-15); BUN 16 mg/dL (7-18); BUN/Creat Ratio 15.5 RATIO (10-20); Calcium,Total 9.1 mg/dL (8.5-10.1); Chloride 104 mmol/L (98-107); Creatinine, Serum 1.03 mg/dL (0.70-1.30); EST Glomerular Filtration Rate 75 mL/min (>60); Est Glom Filt Rate - Afr Amer 90 mL/min (>60); Globulin 3.9 g/dL (2.2-4.2); Glucose 135 mg/dL (74-106); Potassium 4.2 mmol/L (3.5-5.1); Protein, Total 7.5 g/dL (6.4-8.2); Sodium Level 139 mmol/L (136-145); Thyroid Stim Hormone (TSH) 1.49 uIU/mL (0.358-3.74); Vitamin D,25 Hydroxy 34.5 ng/mL (29.95-100.01)
== END ==
PROVIDERS: Family Provider Family Medicine Geriatric Medicine; PCP Family Medicine Geriatric Medicine; Visit Provider Family Medicine Geriatric Medicine
DX: E11.9 Type 2 diabetes mellitus without complications (principal); E55.9 Vitamin D deficiency, unspecified; I10 Essential (primary) hypertension
CPT/HCPCS: 36415; 80053; 82306; 84443; 85025

== ENCOUNTER → 2018-12-21 11:46 | Outpatient (CLI) | payer MEDICARE, SELFPAY ==
[2018-08-03 13:05] VITALS: BMI 26.6
[2018-12-21 12:45] LABS: Absolute Lymphocyte Count 1.83 X10^3/uL (0.83-4.51); Absolute Neutrophil Count 4.2 X10^3/uL (2.0-7.7); Basophil# 0.07 X10^3/uL; Eosinophils% 2.9 % (0-5); Hematocrit 40.7 % (40-54); Hemoglobin 12.6 g/dL (13.0-16.5); Lymphocyte # 1.83 X10^3/ul (4.0); Lymphocyte % 26.2 % (19-41); Mean Corpuscular Hgb 24.6 pg (27.0-32.0); Mean Corpuscular Volume 79.3 fL (80-94); Mean Platelet Vol. 11.5 fl (6.2-12.0); Monocyte% 8.6 % (0-10); NRBC Flagged by Analyzer 0 % (0-5); Neutrophil # 4.24 X10^3/uL (2.7-7.7); Neutrophil % 60.7 % (47-70); Platelet Count 231 K/mm3 (150-450); RBC Distribution Width CV 14.4 % (11.6-14.6); RBC Distribution Width SD 41.3 fl (35.1-43.9); Red Blood Count 5.13 M/mm3 (4.6-6.2)
[2018-12-21 13:05] LABS: AST(SGOT) 12 U/L (15-37); Alanine Aminotransfer ALT/SGPT 24 U/L (16-61); Albumin, Serum 3.7 g/dL (3.2-5.0); Alkaline Phosphatase 104 U/L (45-117); Anion Gap 8 (5-15); BUN 14 mg/dL (7-18); BUN/Creat Ratio 14.4 RATIO (10-20); Calcium,Total 9.2 mg/dL (8.5-10.1); Chloride 103 mmol/L (98-107); Creatinine, Serum 0.97 mg/dL (0.70-1.30); EST Glomerular Filtration Rate 80 mL/min (>60); Est Glom Filt Rate - Afr Amer 97 mL/min (>60); Globulin 3.7 g/dL (2.2-4.2); Glucose 160 mg/dL (74-106); Potassium 4.5 mmol/L (3.5-5.1); Protein, Total 7.4 g/dL (6.4-8.2); Sodium Level 138 mmol/L (136-145)
[2018-12-21 13:07] LABS: Vitamin D,25 Hydroxy 33.6 ng/mL (29.95-100.01)
== END ==
PROVIDERS: Family Provider Family Medicine Geriatric Medicine; PCP Family Medicine Geriatric Medicine; Visit Provider Family Medicine Geriatric Medicine
DX: E11.9 Type 2 diabetes mellitus without complications (principal); E55.9 Vitamin D deficiency, unspecified; I10 Essential (primary) hypertension
CPT/HCPCS: 36415; 80053; 82306; 84443; 85025

== ENCOUNTER → 2019-03-27 12:14 | Outpatient (CLI) | payer MEDICARE, SELFPAY ==
[2018-08-03 13:05] VITALS: BMI 26.6
[2019-03-27 14:08] LABS: Absolute Lymphocyte Count 1.48 X10^3/uL (0.83-4.51); Absolute Neutrophil Count 3.6 X10^3/uL (2.0-7.7); Basophil# 0.07 X10^3/uL; Basophil% 1.2 % (0-1); Eosinophil# 0.12 X10^3/uL; Eosinophils% 2.1 % (0-5); Hematocrit 42.7 % (40-54); Hemoglobin 12.8 g/dL (13.0-16.5); Lymphocyte # 1.48 X10^3/ul (4.0); Lymphocyte % 25.3 % (19-41); Mean Corpuscular Hgb 23.9 pg (27.0-32.0); Mean Corpuscular Volume 79.8 fL (80-94); Mean Platelet Vol. 10.8 fl (6.2-12.0); Monocyte# 0.58 X10^3/uL; Monocyte% 9.9 % (0-10); NRBC Flagged by Analyzer 0 % (0-5); Neutrophil # 3.56 X10^3/uL (2.7-7.7); Platelet Count 288 K/mm3 (150-450); RBC Distribution Width CV 15.8 % (11.6-14.6); Red Blood Count 5.35 M/mm3 (4.6-6.2); White Blood Count 5.8 K/mm3 (4.4-11.0)
[2019-03-27 14:30] LABS: Vitamin D,25 Hydroxy 34.1 ng/mL (29.95-100.01)
[2019-03-27 14:41] LABS: ALB/GLOB Ratio 0.9 RATIO (0.9-2.4); AST(SGOT) 11 U/L (15-37); Alanine Aminotransfer ALT/SGPT 22 U/L (16-61); Albumin, Serum 3.5 g/dL (3.2-5.0); Alkaline Phosphatase 84 U/L (45-117); Anion Gap 5 (5-15); BUN 17 mg/dL (7-18); BUN/Creat Ratio 14.3 RATIO (10-20); Calcium,Total 9.1 mg/dL (8.5-10.1); Chloride 103 mmol/L (98-107); Creatinine, Serum 1.19 mg/dL (0.70-1.30); EST Glomerular Filtration Rate 63 mL/min (>60); Est Glom Filt Rate - Afr Amer 76 mL/min (>60); Globulin 3.9 g/dL (2.2-4.2); Glucose 178 mg/dL (74-106); Protein, Total 7.4 g/dL (6.4-8.2); Sodium Level 138 mmol/L (136-145)
== END ==
PROVIDERS: PCP Family Medicine Geriatric Medicine; Visit Provider Family Medicine Geriatric Medicine
DX: I10 Essential (primary) hypertension (principal); E11.9 Type 2 diabetes mellitus without complications; E55.9 Vitamin D deficiency, unspecified
CPT/HCPCS: 36415; 80053; 82306; 84443; 85025

== ENCOUNTER → 2019-05-09 15:17 | Outpatient (CLI) | payer MEDICARE, SELFPAY ==
[2018-08-03 13:05] VITALS: BMI 26.6
[2019-05-09 15:35] LABS: Absolute Lymphocyte Count 1.41 X10^3/uL (0.83-4.51); Absolute Neutrophil Count 5.8 X10^3/uL (2.0-7.7); Basophil# 0.04 X10^3/uL; Basophil% 0.5 % (0-1); Eosinophil# 0.07 X10^3/uL; Eosinophils% 0.9 % (0-5); Hematocrit 38.2 % (40-54); Hemoglobin 12.2 g/dL (13.0-16.5); Lymphocyte # 1.41 X10^3/ul (4.0); Lymphocyte % 17.3 % (19-41); Mean Corp Hgb Conc 31.9 g/dL (32-36); Mean Corpuscular Hgb 24.9 pg (27.0-32.0); Mean Platelet Vol. 10.4 fl (6.2-12.0); Monocyte# 0.76 X10^3/uL; Monocyte% 9.3 % (0-10); NRBC Flagged by Analyzer 0 % (0-5); Neutrophil # 5.83 X10^3/uL (2.7-7.7); Neutrophil % 71.5 % (47-70); Platelet Count 237 K/mm3 (150-450); RBC Distribution Width CV 15.5 % (11.6-14.6); RBC Distribution Width SD 43.6 fl (35.1-43.9); White Blood Count 8.2 K/mm3 (4.4-11.0)
[2019-05-09 16:04] LABS: ALB/GLOB Ratio 0.9 RATIO (0.9-2.4); AST(SGOT) 14 U/L (15-37); Alanine Aminotransfer ALT/SGPT 21 U/L (16-61); Albumin, Serum 3.4 g/dL (3.2-5.0); Alkaline Phosphatase 77 U/L (45-117); Anion Gap 9 (5-15); BUN 16 mg/dL (7-18); BUN/Creat Ratio 15.1 RATIO (10-20); Calcium,Total 9.2 mg/dL (8.5-10.1); Chloride 107 mmol/L (98-107); Creatinine, Serum 1.06 mg/dL (0.70-1.30); EST Glomerular Filtration Rate 72 mL/min (>60); Est Glom Filt Rate - Afr Amer 87 mL/min (>60); Globulin 3.7 g/dL (2.2-4.2); Glucose 91 mg/dL (74-106); Potassium 3.7 mmol/L (3.5-5.1); Protein, Total 7.1 g/dL (6.4-8.2); Sodium Level 141 mmol/L (136-145); Thyroid Stim Hormone (TSH) 1.51 uIU/mL (0.358-3.74)
== END ==
PROVIDERS: PCP Family Medicine Geriatric Medicine; Visit Provider Family Medicine Geriatric Medicine
DX: I10 Essential (primary) hypertension (principal); R10.9 Unspecified abdominal pain
CPT/HCPCS: 36415; 80053; 84443; 85025

== ENCOUNTER → 2019-05-09 17:18 | Outpatient (CLI) | payer MEDICARE, SELFPAY ==
[2018-08-03 13:05] VITALS: BMI 26.6
--- NOTE | 2019-05-09 17:29 | CT_ITS ---
STUDY: CT ABDOMEN WITH CONTRAST REASON FOR EXAM: Male, 74 years old. DIFFUSE ABD PAIN X 3 DAYS/HX PROSTATE CANCER with prostatectomy. RADIATION DOSAGE (If Supplied By Facility): CTDIvol = ( 19.11 ) mGy, DLP = ( 749.63 ) mGycm TECHNIQUE: Transaxial images were obtained post I.V. administration of Isovue 300 100ml, and oral contrast. Sagittal and coronal images were reconstructed. Individualized dose optimization techniques were used for this CT. COMPARISON: None. FINDINGS: The visualized lung bases are unremarkable. The visualized portions of the heart are within normal limits. Normal liver. Normal gallbladder and extrahepatic biliary system. There are multiple benign calcified granulomata of the spleen. Normal pancreas. 1.4 cm low-attenuation nodule at the left adrenal gland. There are several small left renal cysts. No evidence of renal stone or obstructive uropathy on either side. There is a small hiatal hernia. There is evidence of bowel wall thickening at the gastric outlet or proximal duodenum with mild associated stranding. The remainder of the visualized large and small bowel demonstrates no evidence for obstruction. The appendix is visualized and appears normal. There is diffuse atherosclerotic calcification of the abdominal aorta, without a demonstrated aneurysm. Normal inferior vena cava. Normal retroperitoneum. Normal abdominal wall. Normal osseous structures. CT/Abdomen WITH IV Contrast IMPRESSION: Prominent wall thickening and stranding involving the duodenum and proximal jejunum may indicate enteritis in the appropriate clinical setting. No other acute process is identified within the abdomen. Electronically Signed: Josh Murillo, at 19:52 EST Tel , Service support ,
== END ==
PROVIDERS: PCP Family Medicine Geriatric Medicine; Referring Provider Family Medicine Geriatric Medicine; Visit Provider Family Medicine Geriatric Medicine
DX: R10.9 Unspecified abdominal pain (principal); I10 Essential (primary) hypertension
CPT/HCPCS: 36415; 74160; 80053; 84443; 85025; Q9967; A4216

== ENCOUNTER → 2019-05-31 10:03 | Outpatient (CLI) | payer MEDICARE, SELFPAY ==
[2018-08-03 13:05] VITALS: BMI 26.6
--- NOTE | 2019-05-31 10:06 | RAD_ITS ---
STUDY: X-RAY - ABDOMEN/PELVIS REASON FOR EXAM: Male, 74 years old. Bloating, constipation -- x several weeks TECHNIQUE: AP supine and upright views of the abdomen and pelvis. COMPARISON: None. FINDINGS: There is elevation of the right hemidiaphragm with mild increased markings suggestive of bibasilar atelectasis and/or scarring. There is an abundance of fecal material throughout the colon. There is no demonstrated free abdominal air. The visualized liver, spleen and kidneys are grossly normal in size and morphology. Surgical clips are seen in the pelvis. There are diffuse degenerative changes of the visualized lumbar spine. RAD/Abd Inc Decub and/or Erect IMPRESSION: Large amount of fecal material is seen in the colon. Electronically Signed: Ron Saldana, at 10:44 EDT , Service support ,
== END ==
PROVIDERS: PCP Family Medicine Geriatric Medicine; Referring Provider Family Medicine Geriatric Medicine; Visit Provider Family Medicine Geriatric Medicine
DX: K56.41 Fecal impaction (principal)
CPT/HCPCS: 74019

== ENCOUNTER → 2019-05-31 14:09 | Outpatient (CLI) | payer MEDICARE, SELFPAY ==
[2018-08-03 13:05] VITALS: BMI 26.6
== END ==
LOC: POLAB3 14:09 → LABSPEC 14:12
PROVIDERS: PCP Family Medicine Geriatric Medicine; Visit Provider Family Medicine Geriatric Medicine
DX: R19.7 Diarrhea, unspecified (principal); K56.41 Fecal impaction
CPT/HCPCS: 74019; 82274; 83630; 87177; 87209; 87493; 87506

== ENCOUNTER → 2019-06-08 13:18 | Outpatient (CLI) | payer MEDICARE, SELFPAY ==
[2018-08-03 13:05] VITALS: BMI 26.6
--- NOTE | 2019-06-08 13:31 | CT_ITS ---
STUDY: CT ABDOMEN WITH AND WITHOUT CONTRAST REASON FOR EXAM: Male, 74 years old. LT ADRENAL NODULE SEEN ON PREV SCAN, HX-PROSTATE CA WITH RADICAL PROSTATECTOMY, HTN, DB RADIATION DOSAGE (If Supplied By Facility): CTDIvol = ( 29.10 ) mGy, DLP = ( 2166.45 ) mGycm TECHNIQUE: Transaxial images were obtained pre and post I.V. administration of IV 100mL OPTIRAY 320, and without oral contrast. Sagittal and coronal images were reconstructed. Individualized dose optimization techniques were used for this CT. COMPARISON: Comparison is made with prior examination dated May 09, 2019. FINDINGS: Stable mild degree of increased linear markings at the lung bases suggestive of mild scarring. The visualized portions of the heart are within normal limits. Normal liver. Normal gallbladder and extrahepatic biliary system. There are multiple benign calcified granulomata of the spleen. Normal pancreas. There is a small, circumscribed, smooth, low attenuation left adrenal mass, consistent with an adrenal adenoma. This measures 1.1 cm. Normal right adrenal gland. Normal right kidney. Stable 1.6 cm cyst in the inferior medial aspect of the left kidney. There is a small hiatal hernia. The previously seen inflammatory changes in the region of the duodenum and proximal jejunum have resolved. Normal small intestine. Normal colon. The appendix is visualized and appears normal. There is diffuse atherosclerotic calcification of the abdominal aorta, without a demonstrated aneurysm. Normal inferior vena cava. Normal retroperitoneum. Normal abdominal wall. There are mild degenerative changes of the visualized lumbar spine. CT/Abdomen W/WO IV Contrast IMPRESSION: Stable 1.1 cm well-defined low-attenuation nodule in the left adrenal gland suggestive of an adenoma. Small left renal cyst. Electronically Signed: Ron Saldana, at 14:19 EDT , Service support ,
== END ==
PROVIDERS: PCP Family Medicine Geriatric Medicine; Referring Provider Family Medicine Geriatric Medicine; Visit Provider Family Medicine Geriatric Medicine
DX: E27.8 Other specified disorders of adrenal gland (principal)
CPT/HCPCS: 74170; Q9967

== ENCOUNTER → 2019-06-28 11:00 | Outpatient (CLI) | payer MEDICARE, SELFPAY ==
[2018-08-03 13:05] VITALS: BMI 26.6
[2019-06-28 11:53] LABS: Absolute Lymphocyte Count 1.57 X10^3/uL (0.83-4.51); Absolute Neutrophil Count 3.4 X10^3/uL (2.0-7.7); Basophil# 0.06 X10^3/uL; Eosinophil# 0.24 X10^3/uL; Eosinophils% 4.1 % (0-5); Hematocrit 43.4 % (40-54); Hemoglobin 13.5 g/dL (13.0-16.5); Lymphocyte # 1.57 X10^3/ul (4.0); Lymphocyte % 26.5 % (19-41); Mean Corp Hgb Conc 31.1 g/dL (32-36); Mean Corpuscular Hgb 24.6 pg (27.0-32.0); Mean Corpuscular Volume 79.2 fL (80-94); Mean Platelet Vol. 10.8 fl (6.2-12.0); Monocyte# 0.62 X10^3/uL; Monocyte% 10.5 % (0-10); NRBC Flagged by Analyzer 0 % (0-5); Neutrophil # 3.38 X10^3/uL (2.7-7.7); Neutrophil % 57.1 % (47-70); Platelet Count 261 K/mm3 (150-450); RBC Distribution Width CV 15.4 % (11.6-14.6); Red Blood Count 5.48 M/mm3 (4.6-6.2); White Blood Count 5.9 K/mm3 (4.4-11.0)
[2019-06-28 12:14] LABS: Vitamin D,25 Hydroxy 34.6 ng/mL
[2019-06-28 12:20] LABS: ALB/GLOB Ratio 0.9 RATIO (0.9-2.4); AST(SGOT) 18 U/L (15-37); Alanine Aminotransfer ALT/SGPT 24 U/L (16-61); Albumin, Serum 3.6 g/dL (3.2-5.0); Alkaline Phosphatase 99 U/L (45-117); Anion Gap 7 (5-15); BUN 18 mg/dL (7-18); BUN/Creat Ratio 15.8 RATIO (10-20); Calcium,Total 9.2 mg/dL (8.5-10.1); Chloride 103 mmol/L (98-107); Creatinine, Serum 1.14 mg/dL (0.70-1.30); EST Glomerular Filtration Rate 66 mL/min (>60); Est Glom Filt Rate - Afr Amer 80 mL/min (>60); Globulin 3.8 g/dL (2.2-4.2); Glucose 178 mg/dL (74-106); Potassium 4.2 mmol/L (3.5-5.1); Protein, Total 7.4 g/dL (6.4-8.2); Sodium Level 137 mmol/L (136-145); Thyroid Stim Hormone (TSH) 1.21 uIU/mL (0.358-3.74)
== END ==
PROVIDERS: PCP Family Medicine Geriatric Medicine; Referring Provider Family Medicine Geriatric Medicine; Visit Provider Family Medicine Geriatric Medicine
DX: E11.9 Type 2 diabetes mellitus without complications (principal); E55.9 Vitamin D deficiency, unspecified; I10 Essential (primary) hypertension
CPT/HCPCS: 36415; 80053; 82306; 84443; 85025

== ENCOUNTER → 2019-10-06 08:56 | Outpatient (CLI) | payer MEDICARE, SELFPAY ==
[2018-08-03 13:05] VITALS: BMI 26.6
[2019-10-06 13:11] LABS: Absolute Lymphocyte Count 1.64 X10^3/uL (0.83-4.51); Absolute Neutrophil Count 3.8 X10^3/uL (2.0-7.7); Basophil# 0.06 X10^3/uL; Basophil% 0.9 % (0-1); Eosinophils% 3.2 % (0-5); Hematocrit 41.8 % (40-54); Hemoglobin 13.1 g/dL (13.0-16.5); Lymphocyte # 1.64 X10^3/ul (4.0); Lymphocyte % 25.9 % (19-41); Mean Corp Hgb Conc 31.3 g/dL (32-36); Mean Corpuscular Hgb 25.5 pg (27.0-32.0); Mean Corpuscular Volume 81.3 fL (80-94); Mean Platelet Vol. 11.6 fl (6.2-12.0); Monocyte# 0.64 X10^3/uL; Monocyte% 10.1 % (0-10); NRBC Flagged by Analyzer 0 % (0-5); Neutrophil # 3.75 X10^3/uL (2.7-7.7); Neutrophil % 59.3 % (47-70); Platelet Count 254 K/mm3 (150-450); RBC Distribution Width CV 15.8 % (11.6-14.6); RBC Distribution Width SD 44.5 fl (35.1-43.9); Red Blood Count 5.14 M/mm3 (4.6-6.2); White Blood Count 6.3 K/mm3 (4.4-11.0)
[2019-10-06 13:31] LABS: AST(SGOT) 15 U/L (15-37); Alanine Aminotransfer ALT/SGPT 19 U/L (16-61); Albumin, Serum 3.8 g/dL (3.2-5.0); Alkaline Phosphatase 88 U/L (45-117); Anion Gap 3 (5-15); BUN 21 mg/dL (7-18); BUN/Creat Ratio 17.6 RATIO (10-20); Chloride 105 mmol/L (98-107); Creatinine, Serum 1.19 mg/dL (0.70-1.30); EST Glomerular Filtration Rate 63 mL/min (>60); Est Glom Filt Rate - Afr Amer 76 mL/min (>60); Globulin 3.9 g/dL (2.2-4.2); Glucose 109 mg/dL (74-106); Potassium 3.8 mmol/L (3.5-5.1); Protein, Total 7.7 g/dL (6.4-8.2); Sodium Level 137 mmol/L (136-145); Thyroid Stim Hormone (TSH) 1.83 uIU/mL (0.358-3.74)
== END ==
PROVIDERS: PCP Family Medicine Geriatric Medicine; Visit Provider Family Medicine Geriatric Medicine
DX: E11.9 Type 2 diabetes mellitus without complications (principal); E55.9 Vitamin D deficiency, unspecified; I10 Essential (primary) hypertension
CPT/HCPCS: 36415; 80053; 82306; 84443; 85025

== ENCOUNTER → 2020-01-05 09:51 | Outpatient (CLI) | payer MEDICARE, SELFPAY ==
[2018-08-03 13:05] VITALS: BMI 26.6
[2020-01-05 13:27] LABS: Absolute Lymphocyte Count 1.33 X10^3/uL (0.83-4.51); Absolute Neutrophil Count 3.5 X10^3/uL (2.0-7.7); Basophil# 0.07 X10^3/uL; Basophil% 1.2 % (0-1); Eosinophil# 0.19 X10^3/uL; Eosinophils% 3.3 % (0-5); Hematocrit 41.1 % (40-54); Hemoglobin 12.8 g/dL (13.0-16.5); Lymphocyte # 1.33 X10^3/ul (4.0); Lymphocyte % 23.2 % (19-41); Mean Corp Hgb Conc 31.1 g/dL (32-36); Mean Corpuscular Hgb 25.3 pg (27.0-32.0); Mean Corpuscular Volume 81.4 fL (80-94); Mean Platelet Vol. 10.9 fl (6.2-12.0); Monocyte# 0.58 X10^3/uL; Monocyte% 10.1 % (0-10); NRBC Flagged by Analyzer 0 % (0-5); Neutrophil # 3.52 X10^3/uL (2.7-7.7); Neutrophil % 61.3 % (47-70); Platelet Count 261 K/mm3 (150-450); RBC Distribution Width CV 14.9 % (11.6-14.6); RBC Distribution Width SD 44.1 fl (35.1-43.9); Red Blood Count 5.05 M/mm3 (4.6-6.2); White Blood Count 5.7 K/mm3 (4.4-11.0)
[2020-01-05 13:40] LABS: Vitamin D,25 Hydroxy 31.2 ng/mL
[2020-01-05 13:44] LABS: ALB/GLOB Ratio 0.9 RATIO (0.9-2.4); AST(SGOT) 13 U/L (15-37); Alanine Aminotransfer ALT/SGPT 19 U/L (16-61); Albumin, Serum 3.4 g/dL (3.2-5.0); Alkaline Phosphatase 96 U/L (45-117); Anion Gap 6 (5-15); BUN 20 mg/dL (7-18); BUN/Creat Ratio 15.9 RATIO (10-20); Calcium,Total 8.7 mg/dL (8.5-10.1); Chloride 104 mmol/L (98-107); Creatinine, Serum 1.26 mg/dL (0.70-1.30); EST Glomerular Filtration Rate 59 mL/min (>60); Est Glom Filt Rate - Afr Amer 71 mL/min (>60); Globulin 3.9 g/dL (2.2-4.2); Glucose 209 mg/dL (74-106); Potassium 4.1 mmol/L (3.5-5.1); Protein, Total 7.3 g/dL (6.4-8.2); Sodium Level 138 mmol/L (136-145); Thyroid Stim Hormone (TSH) 1.94 uIU/mL (0.358-3.74)
== END ==
PROVIDERS: PCP Family Medicine Geriatric Medicine; Visit Provider Family Medicine Geriatric Medicine
DX: E11.9 Type 2 diabetes mellitus without complications (principal); I10 Essential (primary) hypertension; E55.9 Vitamin D deficiency, unspecified
CPT/HCPCS: 36415; 80053; 82306; 84443; 85025

== ENCOUNTER → 2020-02-12 10:03 | Outpatient (CLI) | payer MEDICARE, SELFPAY ==
[2018-08-03 13:05] VITALS: BMI 26.6
--- NOTE | 2020-02-12 10:18 | RAD_ITS ---
STUDY: X-RAY - RIGHT FOOT CLINICAL: Male, 74 years old. GREAT TOE PAIN, PT DROPPED SOMETHING HEAVY ON TOE, IMAGES ARE MARKED INCORRECTLY. THE RIGHT FOOT WAS X RAYED TECHNIQUE: 3 view(s) of the foot. COMPARISON: None. FINDINGS: Normal talus, calcaneus, and tarsal bones. Small plantar enthesophyte. Normal visualized subtalar, talonavicular, calcaneocuboid, tarsal and tarsometatarsal articulations. Normal metatarsi. Normal metatarsophalangeal joint of the great toe. Normal tibial and fibular sesamoid bones. Normal interphalangeal joint of the great toe. Normal phalanges of the great toe. Normal second through fifth metatarsophalangeal joints. Normal interphalangeal joints and phalanges of the lesser toes. The soft tissue structures are unremarkable. RAD/Foot min 3 Views IMPRESSION: Normal x-ray examination of the foot. Electronically Signed: Donnie Nelson MD at 17:03 EST Tel , Service support ,
[2020-02-12 11:31] LABS: Absolute Lymphocyte Count 1.34 X10^3/uL (0.83-4.51); Absolute Neutrophil Count 3.7 X10^3/uL (2.0-7.7); Basophil# 0.06 X10^3/uL; Eosinophils% 3.4 % (0-5); Hematocrit 40.7 % (40-54); Hemoglobin 12.8 g/dL (13.0-16.5); Lymphocyte # 1.34 X10^3/ul (4.0); Lymphocyte % 22.6 % (19-41); Mean Corp Hgb Conc 31.4 g/dL (32-36); Mean Corpuscular Hgb 25.3 pg (27.0-32.0); Mean Corpuscular Volume 80.6 fL (80-94); Monocyte# 0.63 X10^3/uL; Monocyte% 10.6 % (0-10); NRBC Flagged by Analyzer 0 % (0-5); Neutrophil # 3.66 X10^3/uL (2.7-7.7); Neutrophil % 61.7 % (47-70); Platelet Count 301 K/mm3 (150-450); RBC Distribution Width CV 14.6 % (11.6-14.6); RBC Distribution Width SD 42.5 fl (35.1-43.9); Red Blood Count 5.05 M/mm3 (4.6-6.2); White Blood Count 5.9 K/mm3 (4.4-11.0)
[2020-02-12 11:45] LABS: Anion Gap 6 (5-15); BUN 16 mg/dL (7-18); BUN/Creat Ratio 13.6 RATIO (10-20); Calcium,Total 9.2 mg/dL (8.5-10.1); Chloride 106 mmol/L (98-107); Creatinine, Serum 1.18 mg/dL (0.70-1.30); EST Glomerular Filtration Rate 64 mL/min (>60); Est Glom Filt Rate - Afr Amer 77 mL/min (>60); Glucose 204 mg/dL (74-106); Potassium 4.2 mmol/L (3.5-5.1); Sodium Level 139 mmol/L (136-145)
== END ==
PROVIDERS: PCP Family Medicine Geriatric Medicine; Referring Provider Family Medicine Geriatric Medicine; Visit Provider Family Medicine Geriatric Medicine
DX: L03.039 Cellulitis of unspecified toe (principal)
CPT/HCPCS: 36415; 73630; 80048; 85025

== ENCOUNTER → 2020-04-03 13:00 | Outpatient (CLI) | payer MEDICARE, SELFPAY ==
[2018-08-03 13:05] VITALS: BMI 26.6
[2020-04-03 14:29] LABS: Absolute Lymphocyte Count 1.68 X10^3/uL (0.83-4.51); Absolute Neutrophil Count 4.5 X10^3/uL (2.0-7.7); Basophil# 0.06 X10^3/uL; Basophil% 0.8 % (0-1); Eosinophil# 0.18 X10^3/uL; Eosinophils% 2.5 % (0-5); Hematocrit 41.1 % (40-54); Lymphocyte # 1.68 X10^3/ul (4.0); Lymphocyte % 23.8 % (19-41); Mean Corp Hgb Conc 31.6 g/dL (32-36); Mean Corpuscular Hgb 25.3 pg (27.0-32.0); Mean Corpuscular Volume 80.1 fL (80-94); Mean Platelet Vol. 11.1 fl (6.2-12.0); Monocyte# 0.64 X10^3/uL; Monocyte% 9.1 % (0-10); NRBC Flagged by Analyzer 0 % (0-5); Neutrophil # 4.47 X10^3/uL (2.7-7.7); Neutrophil % 63.4 % (47-70); Platelet Count 297 K/mm3 (150-450); RBC Distribution Width CV 14.4 % (11.6-14.6); RBC Distribution Width SD 41.9 fl (35.1-43.9); Red Blood Count 5.13 M/mm3 (4.6-6.2); White Blood Count 7.1 K/mm3 (4.4-11.0)
[2020-04-03 14:43] LABS: Vitamin D,25 Hydroxy 35.4 ng/mL
[2020-04-03 14:50] LABS: ALB/GLOB Ratio 0.9 RATIO (0.9-2.4); AST(SGOT) 12 U/L (15-37); Alanine Aminotransfer ALT/SGPT 24 U/L (16-61); Albumin, Serum 3.6 g/dL (3.2-5.0); Alkaline Phosphatase 102 U/L (45-117); Anion Gap 6 (5-15); BUN 15 mg/dL (7-18); BUN/Creat Ratio 12.3 RATIO (10-20); Calcium,Total 8.8 mg/dL (8.5-10.1); Chloride 103 mmol/L (98-107); Creatinine, Serum 1.22 mg/dL (0.70-1.30); EST Glomerular Filtration Rate 61 mL/min (>60); Est Glom Filt Rate - Afr Amer 74 mL/min (>60); Glucose 199 mg/dL (74-106); Potassium 4.8 mmol/L (3.5-5.1); Protein, Total 7.6 g/dL (6.4-8.2); Sodium Level 138 mmol/L (136-145); Thyroid Stim Hormone (TSH) 1.62 uIU/mL (0.358-3.74)
== END ==
PROVIDERS: PCP Family Medicine Geriatric Medicine; Visit Provider Family Medicine Geriatric Medicine
DX: E11.9 Type 2 diabetes mellitus without complications (principal); E55.9 Vitamin D deficiency, unspecified; I10 Essential (primary) hypertension
CPT/HCPCS: 36415; 80053; 82306; 84443; 85025

== ENCOUNTER → 2020-07-02 13:40 | Outpatient (CLI) | payer MEDICARE, SELFPAY ==
[2018-08-03 13:05] VITALS: BMI 26.6
[2020-07-02 15:23] LABS: Absolute Lymphocyte Count 1.81 X10^3/uL (0.83-4.51); Absolute Neutrophil Count 3.4 X10^3/uL (2.0-7.7); Basophil# 0.06 X10^3/uL; Eosinophil# 0.18 X10^3/uL; Hematocrit 38.6 % (40-54); Hemoglobin 11.7 g/dL (13.0-16.5); Lymphocyte # 1.81 X10^3/ul (0.83-4.51); Mean Corp Hgb Conc 30.3 g/dL (32-36); Mean Corpuscular Hgb 24.1 pg (27.0-32.0); Mean Corpuscular Volume 79.6 fL (80-94); Mean Platelet Vol. 11.1 fl (6.2-12.0); Monocyte# 0.56 X10^3/uL; Monocyte% 9.3 % (0-10); NRBC Flagged by Analyzer 0 % (0-5); Neutrophil # 3.39 X10^3/uL (2.7-7.7); Neutrophil % 56.2 % (47-70); Platelet Count 235 K/mm3 (150-450); RBC Distribution Width CV 15.5 % (11.6-14.6); RBC Distribution Width SD 44.8 fl (35.1-43.9); Red Blood Count 4.85 M/mm3 (4.6-6.2)
[2020-07-02 15:33] LABS: Vitamin D,25 Hydroxy 32.2 ng/mL
[2020-07-02 15:43] LABS: ALB/GLOB Ratio 0.9 RATIO (0.9-2.4); AST(SGOT) 13 U/L (15-37); Alanine Aminotransfer ALT/SGPT 22 U/L (16-61); Albumin, Serum 3.5 g/dL (3.2-5.0); Alkaline Phosphatase 91 U/L (45-117); Anion Gap 5 (5-15); BUN 18 mg/dL (7-18); BUN/Creat Ratio 14.9 RATIO (10-20); Calcium,Total 8.8 mg/dL (8.5-10.1); Chloride 104 mmol/L (98-107); Creatinine, Serum 1.21 mg/dL (0.70-1.30); EST Glomerular Filtration Rate 62 mL/min (>60); Est Glom Filt Rate - Afr Amer 75 mL/min (>60); Globulin 3.7 g/dL (2.2-4.2); Glucose 199 mg/dL (74-106); Potassium 3.8 mmol/L (3.5-5.1); Protein, Total 7.2 g/dL (6.4-8.2); Sodium Level 138 mmol/L (136-145); Thyroid Stim Hormone (TSH) 1.66 uIU/mL (0.358-3.74)
== END ==
PROVIDERS: PCP Family Medicine Geriatric Medicine; Visit Provider Family Medicine Geriatric Medicine
DX: E11.9 Type 2 diabetes mellitus without complications (principal); E55.9 Vitamin D deficiency, unspecified; I10 Essential (primary) hypertension
CPT/HCPCS: 36415; 80053; 82306; 84443; 85025

== ENCOUNTER → 2020-08-01 14:52 | Outpatient (CLI) | payer MEDICARE, SELFPAY ==
[2018-08-03 13:05] VITALS: BMI 26.6
[2020-08-01 17:19] LABS: Absolute Lymphocyte Count 1.34 X10^3/uL (0.83-4.51); Absolute Neutrophil Count 3.6 X10^3/uL (2.0-7.7); Basophil# 0.03 X10^3/uL; Basophil% 0.5 % (0-1); Eosinophil# 0.15 X10^3/uL; Eosinophils% 2.6 % (0-5); Hematocrit 38.1 % (40-54); Hemoglobin 11.8 g/dL (13.0-16.5); Lymphocyte # 1.34 X10^3/ul (0.83-4.51); Lymphocyte % 23.6 % (19-41); Mean Corpuscular Hgb 24.7 pg (27.0-32.0); Mean Corpuscular Volume 79.9 fL (80-94); Mean Platelet Vol. 11.3 fl (6.2-12.0); Monocyte# 0.54 X10^3/uL; Monocyte% 9.5 % (0-10); NRBC Flagged by Analyzer 0 % (0-5); Neutrophil # 3.59 X10^3/uL (2.7-7.7); Neutrophil % 63.3 % (47-70); Platelet Count 251 K/mm3 (150-450); RBC Distribution Width CV 15.3 % (11.6-14.6); RBC Distribution Width SD 44.7 fl (35.1-43.9); Red Blood Count 4.77 M/mm3 (4.6-6.2); White Blood Count 5.7 K/mm3 (4.4-11.0)
== END ==
PROVIDERS: PCP Family Medicine Geriatric Medicine; Visit Provider Family Medicine Geriatric Medicine
DX: D64.9 Anemia, unspecified (principal)
CPT/HCPCS: 36415; 85025

== ENCOUNTER → 2020-08-26 11:30 | Outpatient (CLI) | payer MEDICARE, SELFPAY ==
[2018-08-03 13:05] VITALS: BMI 26.6
[2020-08-26 12:57] LABS: PSA,Total- Diagnostic < 0.01 ng/mL (0.0-4.0)
== END ==
PROVIDERS: PCP Family Medicine Geriatric Medicine; Referring Provider Urology; Visit Provider Urology
DX: C61 Malignant neoplasm of prostate (principal)
CPT/HCPCS: 36415; 84153

== ENCOUNTER → 2020-09-25 14:30 | Outpatient (CLI) | payer MEDICARE, SELFPAY ==
[2018-08-03 13:05] VITALS: BMI 26.6
[2020-09-25 17:09] LABS: Absolute Lymphocyte Count 1.48 X10^3/uL (0.83-4.51); Absolute Neutrophil Count 4.7 X10^3/uL (2.0-7.7); Basophil# 0.05 X10^3/uL; Basophil% 0.7 % (0-1); Eosinophil# 0.16 X10^3/uL; Eosinophils% 2.3 % (0-5); Hematocrit 39.4 % (40-54); Hemoglobin 12.2 g/dL (13.0-16.5); Lymphocyte # 1.48 X10^3/ul (0.83-4.51); Lymphocyte % 21.4 % (19-41); Mean Corpuscular Hgb 24.8 pg (27.0-32.0); Mean Corpuscular Volume 80.1 fL (80-94); Mean Platelet Vol. 11.2 fl (6.2-12.0); Monocyte# 0.53 X10^3/uL; Monocyte% 7.7 % (0-10); NRBC Flagged by Analyzer 0 % (0-5); Neutrophil # 4.65 X10^3/uL (2.7-7.7); Neutrophil % 67.2 % (47-70); Platelet Count 262 K/mm3 (150-450); RBC Distribution Width SD 43.8 fl (35.1-43.9); Red Blood Count 4.92 M/mm3 (4.6-6.2); White Blood Count 6.9 K/mm3 (4.4-11.0)
[2020-09-25 17:23] LABS: Vitamin D,25 Hydroxy 43.4 ng/mL
[2020-09-25 17:28] LABS: ALB/GLOB Ratio 0.9 RATIO (0.9-2.4); AST(SGOT) 15 U/L (15-37); Alanine Aminotransfer ALT/SGPT 22 U/L (16-61); Albumin, Serum 3.5 g/dL (3.2-5.0); Alkaline Phosphatase 88 U/L (45-117); Anion Gap 9 (5-15); BUN 18 mg/dL (7-18); BUN/Creat Ratio 15.3 RATIO (10-20); Calcium,Total 8.9 mg/dL (8.5-10.1); Chloride 102 mmol/L (98-107); Creatinine, Serum 1.18 mg/dL (0.70-1.30); EST Glomerular Filtration Rate 64 mL/min (>60); Est Glom Filt Rate - Afr Amer 77 mL/min (>60); Globulin 3.8 g/dL (2.2-4.2); Glucose 159 mg/dL (74-106); Potassium 3.8 mmol/L (3.5-5.1); Protein, Total 7.3 g/dL (6.4-8.2); Sodium Level 138 mmol/L (136-145); Thyroid Stim Hormone (TSH) 1.51 uIU/mL (0.358-3.74)
== END ==
PROVIDERS: PCP Family Medicine Geriatric Medicine; Visit Provider Family Medicine Geriatric Medicine
DX: E11.9 Type 2 diabetes mellitus without complications (principal); E55.9 Vitamin D deficiency, unspecified; I10 Essential (primary) hypertension
CPT/HCPCS: 36415; 80053; 82306; 84443; 85025

== ENCOUNTER → 2020-10-28 16:40 | Outpatient (CLI) | payer MEDICARE, SELFPAY | PROVIDERS: PCP Family Medicine Geriatric Medicine; Referring Provider Urology; Visit Provider Urology | DX: R35.0 Frequency of micturition (principal) | CPT/HCPCS: 87077; 87086; 87088; 87186 ==

== ENCOUNTER → 2020-12-25 10:03 | Outpatient (CLI) | payer MEDICARE, SELFPAY ==
[2020-12-25 12:30] LABS: Absolute Lymphocyte Count 1.15 X10^3/uL (0.83-4.51); Absolute Neutrophil Count 5.4 X10^3/uL (2.0-7.7); Basophil# 0.06 X10^3/uL; Basophil% 0.8 % (0-1); Eosinophils% 2.6 % (0-5); Hematocrit 40.1 % (40-54); Hemoglobin 12.7 g/dL (13.0-16.5); Lymphocyte # 1.15 X10^3/ul (0.83-4.51); Lymphocyte % 15.1 % (19-41); Mean Corp Hgb Conc 31.7 g/dL (32-36); Mean Corpuscular Hgb 25.5 pg (27.0-32.0); Mean Corpuscular Volume 80.4 fL (80-94); Mean Platelet Vol. 11.3 fl (6.2-12.0); Monocyte% 9.2 % (0-10); NRBC Flagged by Analyzer 0 % (0-5); Neutrophil # 5.42 X10^3/uL (2.7-7.7); Platelet Count 271 K/mm3 (150-450); RBC Distribution Width CV 15.8 % (11.6-14.6); RBC Distribution Width SD 46.3 fl (35.1-43.9); Red Blood Count 4.99 M/mm3 (4.6-6.2); White Blood Count 7.6 K/mm3 (4.4-11.0)
[2020-12-25 12:54] LABS: ALB/GLOB Ratio 0.9 RATIO (0.9-2.4); AST(SGOT) 15 U/L (15-37); Alanine Aminotransfer ALT/SGPT 20 U/L (16-61); Albumin, Serum 3.5 g/dL (3.2-5.0); Alkaline Phosphatase 91 U/L (45-117); Anion Gap 7 (5-15); BUN 19 mg/dL (7-18); BUN/Creat Ratio 16.2 RATIO (10-20); Calcium,Total 9.1 mg/dL (8.5-10.1); Chloride 105 mmol/L (98-107); Creatinine, Serum 1.17 mg/dL (0.70-1.30); EST Glomerular Filtration Rate 64 mL/min (>60); Est Glom Filt Rate - Afr Amer 78 mL/min (>60); Globulin 3.8 g/dL (2.2-4.2); Glucose 121 mg/dL (74-106); Potassium 3.9 mmol/L (3.5-5.1); Protein, Total 7.3 g/dL (6.4-8.2); Sodium Level 139 mmol/L (136-145); Thyroid Stim Hormone (TSH) 1.51 uIU/mL (0.358-3.74)
[2020-12-25 13:01] LABS: Vitamin D,25 Hydroxy 43.5 ng/mL
== END ==
PROVIDERS: PCP Family Medicine Geriatric Medicine; Visit Provider Family Medicine Geriatric Medicine
DX: E11.9 Type 2 diabetes mellitus without complications (principal); E55.9 Vitamin D deficiency, unspecified; I10 Essential (primary) hypertension
CPT/HCPCS: 36415; 80053; 82306; 84443; 85025

== ENCOUNTER 2021-01-14 17:54 | Emergency (ER) | payer MEDICARE, SELFPAY ==
[2021-01-14] VITALS (7 sets, daily range): BP systolic 210–218; BP diastolic 85–127; PULSE 101–129; RESP 12–16; TEMP 35.5; O2SAT 99–100; BMI 28.7
[2021-01-14] MEDS: Succinylcholine Chloride 200 MG/10 ML Vial 120 MG IV (18:00)
[2021-01-14] MEDS: Etomidate 20 MG/10 ML Vial IV (18:00)
--- NOTE | 2021-01-14 18:04 | CT_ITS ---
STUDY: CT CERVICAL SPINE WITHOUT CONTRAST REASON FOR EXAM: Male, 75 years old. alt loc RADIATION DOSAGE (If Supplied By Facility): CTDIvol = ( 44.99 ) mGy, DLP = ( 846.73 ) mGycm TECHNIQUE: High resolution transaxial imaging was performed without contrast material. Sagittal and coronal images were reconstructed. Individualized dose optimization techniques were used for this CT. COMPARISON: None FINDINGS: Normal craniovertebral junction. Normal anterior atlantoaxial articulation. Normal odontoid process. Straightening of the upper cervical lordosis. Normal vertebral bodies and posterior osseous elements. C2-3: Normal endplates. Normal disc height and morphology. Normal central canal and intervertebral neuroforamina. C3-4: Normal endplates. Normal disc height and morphology. Normal central canal and intervertebral neuroforamina. C4-5: Mild spurring at the endplates. Grade 1 retrolisthesis. Slightly narrowed disc height. Normal central canal. Uncovertebral spurring narrowing the intervertebral neuroforamina, left more than right. C5-6: Mild spurring at the endplates. Narrowed disc height. Posterior spurs protrude into the central canal. Uncovertebral spurring narrowing the intervertebral neuroforamina. C6-7: Spurring at the endplates. Narrowed disc height. Posterior spurring protruding into the central canal. Uncovertebral spurring narrowing the intervertebral neuroforamina, right more than left. C7-T1: Normal endplates. Normal disc height and morphology. Normal central canal and intervertebral neuroforamina. Nasogastric and endotracheal tube are noted. Motion artifact limiting some images. CT/Spine Cervical without Contras IMPRESSION: Degenerative changes of the cervical spine. Electronically Signed: Conrado Johnson DO at 18:54 EST Tel [phone], Service support ,
--- NOTE | 2021-01-14 18:04 | RAD_ITS ---
STUDY: X-RAY CHEST REASON FOR EXAM: Male, 75 years old. tube placement TECHNIQUE: Frontal view COMPARISON: None. FINDINGS: Nasogastric tube in the stomach. The lungs are expanded. Bilateral interstitial densities. Left basilar atelectasis. Normal size heart. Normal mediastinum and jose j. Normal visualized pulmonary arteries. Normal visualized aortic arch and descending thoracic aorta. Normal visualized thoracic spine. Normal visualized ribs, clavicles, and shoulders. There is no demonstrated abnormality of the visualized soft tissue structures of the upper abdomen. RAD/Chest 1 View (Portable) IMPRESSION: Bilateral interstitial densities. Left basilar atelectasis. Electronically Signed: Conrado Johnson DO at 19:15 EST Tel [phone], Service support ,
--- NOTE | 2021-01-14 18:04 | CT_ITS ---
We are attempting to reach an attending provider to discuss findings. An addendum with communication details will be sent when the communication is complete. STUDY: CT BRAIN WITHOUT CONTRAST REASON FOR EXAM: Male, 75 years old. alt loc RADIATION DOSAGE (If Supplied By Facility): CTDIvol = ( 26.36 ) mGy, DLP = ( 997.11 ) mGycm TECHNIQUE: Transaxial CT imaging of the brain was performed without administration of intravenous contrast material. Individualized dose optimization techniques were used for this CT. COMPARISON: No relevant priors. FINDINGS: Normal soft tissue structures. Normal calvarium. Normal size ventricles and extra-axial spaces for the patient''s age. Normal white matter tracts of the cerebral hemispheres. Normal basal ganglia and thalami. Normal brainstem. Normal cerebellum. There is a diffuse right-sided subdural hematoma with approximately 1.4 cm right to left midline shift. Maximum thickness of the hematoma is approximately 15 mm. There are no findings of an acute ischemic infarction. Normal visualized paranasal sinuses. CT/Brain/Head without Contrast IMPRESSION: Diffuse right subdural hematoma with [id number] midline shift. Electronically Signed: Conrado Johnson DO at 18:47 EST Tel [phone], Service support ,
--- NOTE | 2021-01-14 18:06 | EKG12_ITS ---
Test Reason : UNRESPONSIVE Blood Pressure : / mmHG Vent. Rate : 102 BPM Atrial Rate : 102 BPM P-R Int : 202 ms QRS Dur : 102 ms QT Int : 344 ms P-R-T Axes : 059 059 068 degrees QTc Int : 448 [address] Sin[address] tachycardia Nonspecific ST abnormality Abnormal ECG Confirmed by OSMANY PIMENTEL, HEATH ([id number]), writer editor CLARA HANNAH ([id number]) on 01/16/2021 8:49:00 AM Referred By: FÉLIX Confirmed By:HEATH CERON MD
[2021-01-14] MEDS: fentaNYL 100 MCG/2 ML Ampul 50 MCG IV (18:19)
[2021-01-14] MEDS: Rocuronium Bromide 50 MG/5 ML Vial 100 MG IV (18:20)
[2021-01-14] MEDS: Propofol 10MG/Ml 1,000 MG/100 ML Bottle 5.8 MG CONT INF (18:20)
[2021-01-14 18:23] LABS: Absolute Lymphocyte Count 2.55 X10^3/uL (0.83-4.51); Absolute Neutrophil Count 6.1 X10^3/uL (2.0-7.7); Basophil# 0.07 X10^3/uL; Basophil% 0.7 % (0-1); Eosinophil# 0.18 X10^3/uL; Eosinophils% 1.8 % (0-5); Hematocrit 40.6 % (40-54); Hemoglobin 12.7 g/dL (13.0-16.5); Lymphocyte # 2.55 X10^3/ul (0.83-4.51); Mean Corp Hgb Conc 31.3 g/dL (32-36); Mean Corpuscular Hgb 24.9 pg (27.0-32.0); Mean Corpuscular Volume 79.6 fL (80-94); Mean Platelet Vol. 10.6 fl (6.2-12.0); Monocyte# 0.85 X10^3/uL; Monocyte% 8.7 % (0-10); NRBC Flagged by Analyzer 0 % (0-5); Neutrophil # 6.07 X10^3/uL (2.7-7.7); Platelet Count 304 K/mm3 (150-450); RBC Distribution Width CV 15.1 % (11.6-14.6); RBC Distribution Width SD 43.5 fl (35.1-43.9); White Blood Count 9.8 K/mm3 (4.4-11.0)
--- NOTE | 2021-01-14 18:24 | NURSING ---
CALLED [facility], TALKED TO KRISTA. SHE IS TALKING TO DR HEARD
--- NOTE | 2021-01-14 18:30 | EX.ED.DYSGE1 ---
HPI History of Present Illness Chief Complaint: Unresponsive Narrative Narrative: Patient is a 75-year-old male with past medical history of diabetes hypertension hyperlipidemia with no blood thinners noted on his medication list. EMS reports that patient was working outside in the yard throughout the day and came inside around 3 PM and told his that he hit his head. Reportedly 5 to 10 minutes later he told his the same thing. Later he went outside and had a bout of vomiting and then became unresponsive and EMS was called. EMS states they checked his blood sugar as he is diabetic and it was normal at 150. They state that his pupils began to look asymmetric and his mental status and respirations decreased and they began bagging the patient. Based on the patient's altered mental status he cannot offer any further history [facility] Medical History Diabetes mellitus GERD (gastroesophageal reflux disease) HLD (hyperlipidemia) HTN (hypertension) Prostate cancer Home Medications atorvastatin 20 mg tablet 20 mg PO QPM 08/03/18 [History Last Taken Unknown] insulin detemir U-100 100 unit/mL subcutaneous solution 40 unit SC QHS ml 08/03/18 [History Last Taken Unknown] insulin detemir U-100 100 unit/mL subcutaneous solution 45 unit SC DAILY ml 08/03/18 [History Last Taken Unknown] losartan 100 mg-hydrochlorothiazide 12.5 mg tablet 1 tab PO DAILY 08/03/18 [History Last Taken Unknown] metformin 1,000 mg tablet 1,000 mg PO BID 08/03/18 [History Last Taken Unknown] Allergy/AdvReac Type Severity Reaction Status Date / Time No Known Allergies Allergy Unverified 08/03/18 13:06 Surgical History (Updated 01/14/21 @ 18:07 by Marguerite Mike) History of repair of rotator cuff Social History (Updated 08/03/18 @ 16:[address] Henry Allen DO) Smoking Status: Unknown if ever smoked ROS ROS ED Review of Systems ROS Unobtainable: due to endotracheal tube and due to mental condition EXAM Physical Exam Const Vital Signs: 01/14/21 17:55 01/14/21 17:59 01/14/21 18:22 Temperature 96 F L Temperature Source Temporal Pulse Rate 106 H Respiratory Rate 12 Respiratory Effort Labored Accessory Muscle Use Respiratory Depth Shallow Respiratory Pattern Grunting Blood Pressure 210/87 H Blood Pressure Mean 128 Blood Pressure Source Blood Pressure Position Blood Pressure Location Pulse Ox 100 Oxygen Delivery Method Mechanical Ventilator Fraction of Inspired Oxygen (FIO2) 60 01/14/21 18:23 01/14/21 18:32 01/14/21 18:41 Temperature Temperature Source Pulse Rate 108 H 108 H 107 H Respiratory Rate 12 12 Respiratory Effort Respiratory Depth Respiratory Pattern Normal Blood Pressure 216/127 H 216/127 H Blood Pressure Mean 156 156 Blood Pressure Source Monitor Blood Pressure Position Semi-Fowlers Blood Pressure Location Right Arm Pulse Ox 100 99 Oxygen Delivery Method Mechanical Ventilator Fraction of Inspired Oxygen (FIO2) 60 01/14/21 18:55 Temperature Temperature Source Pulse Rate 129 H Respiratory Rate 12 Respiratory Effort Respiratory Depth Respiratory Pattern Blood Pressure 218/98 H Blood Pressure Mean 138 Blood Pressure Source Monitor Blood Pressure Position Semi-Fowlers Blood Pressure Location Right Arm Pulse Ox 100 Oxygen Delivery Method Mechanical Ventilator Fraction of Inspired Oxygen (FIO2) Positive well nourished and well developed General Appearance ED: well developed HEENT HEENT Narrative: No signs of depressed or basilar skull fracture no overlying head injury changes Eyes Eyes Narrative: Pupils are constricted and sluggish to respond Neck Neck Narrative: No bony deformity or step-off of the cervical spine Chest Wall palpation of chest normal Chest Narrative: No bony deformity or crepitance noted Resp Resp Narrative: Patient has sonorous respirations with diminished breath sounds throughout Cardio Rate: other Other Details: Tachycardic rate with regular rhythm radial pulses are +2-4 bilaterally GI non-distended and no masses GI Narrative: No pulsatile mass Auscultation: normoactive bowel sounds Palpation: soft Extremity normal to inspection Neuro Neuro Narrative: Patient is obtunded with GCS of 7. He has no gag reflex. He will localize pain with his right arm and slightly withdrawal from pain with his left arm and left leg. Skin no rashes or lesions noted Skin Narrative: No obvious ecchymosis or abrasions noted MDM MDM MDM Narrative Medical decision making narrative: Patient presented to the ER obtunded with GCS of 7 and not protecting his airway therefore he was intubated as documented below. With report of hitting his head and his altered mental status he was sent for images which showed a large subdural bleed with shift. He is not on blood thinners according to his med list and therefore there is no need to give Kcentra. [facility] was contacted because of the bleeding and he was accepted and [facility] was also notified and patient will be transferred to their facility in critical condition. Based on his bleed and high blood pressure he was given mannitol and also started on nicardipine drip. Patient was intubated using a glide scope. The cords were visualized and an 8.0 ET tube was passed with 1 attempt. Confirmation was by fogging within to bilateral breath sounds and color change capnography. Patient tolerated procedure well without complication Lab Data Attestation: I reviewed the patient's lab results. Labs: Laboratory Results - last 24 hr 01/14/21 01/14/21 01/14/21 17:58 17:58 17:58 WBC 9.8 RBC 5.10 Hgb 12.7 L Hct 40.6 MCV 79.6 L MCH 24.9 L MCHC 31.3 L RDW Std Deviation 43.5 RDW Coeff of Hermelinda 15.1 H Plt Count 304 MPV 10.6 Immature Gran % (Auto) 0.800 Neut % (Auto) 62.0 Lymph % (Auto) 26.0 Snyder % (Auto) 8.7 Eos % (Auto) 1.8 Baso % (Auto) 0.7 Absolute Neuts (auto) 6.1 Absolute Lymphs (auto) 2.55 Nucleated RBC % 0 PT 12.8 INR 1.0 APTT 26.8 Sodium 140 Potassium 3.6 Chloride 107 Carbon Dioxide 26.0 Anion Gap 7 BUN 26 H Creatinine 1.50 H Estim Creat Clear Calc 45.27 Est GFR (MDRD) Af Amer 58 L Est GFR (MDRD) Non-Af 48 L BUN/Creatinine Ratio 17.3 Glucose 195 H Calcium 9.0 Total Bilirubin 0.20 Direct Bilirubin 0.09 AST 17 ALT 19 Alkaline Phosphatase 97 Troponin I High Sens 13 Total Protein 7.7 Albumin 3.6 Globulin 4.1 TSH 1.12 Salicylates Acetaminophen Ur Drug Screen Comment Ethyl Alcohol 01/14/21 01/14/21 17:58 18:33 WBC RBC Hgb Hct MCV MCH MCHC RDW Std Deviation RDW Coeff of Hermelinda Plt Count MPV Immature Gran % (Auto) Neut % (Auto) Lymph % (Auto) Snyder % (Auto) Eos % (Auto) Baso % (Auto) Absolute Neuts (auto) Absolute Lymphs (auto) Nucleated RBC % PT INR APTT Sodium Potassium Chloride Carbon Dioxide Anion Gap BUN Creatinine Estim Creat Clear Calc Est GFR (MDRD) Af Amer Est GFR (MDRD) Non-Af BUN/Creatinine Ratio Glucose Calcium Total Bilirubin Direct Bilirubin AST ALT Alkaline Phosphatase Troponin I High Sens Total Protein Albumin Globulin TSH Salicylates < 1.7 L Acetaminophen < 2.0 L Ur Drug Screen Comment Ethyl Alcohol < 3.0 Radiography Diagnostic Testing: Clinical Impression(s) from Imaging Studies Brain CT 01/14/21 18:04 IMPRESSION: Diffuse right subdural hematoma with [id number] midline shift. Electronically Signed: Conrado Johnson DO at 18:47 EST Tel [phone], Service support , ADDENDUM: 01/14/21 1857 IMPRESSION: Diffuse right subdural hematoma with [id number] midline shift. N.B. : The above Results were Read Back by Conrado Johnson DO to Dr. Jordi Bledsoe MD, and understanding confirmed on 01/14/2021 18:50:18 (ET). Electronically Signed: Conrado Johnson DO at 18:47 EST Tel [phone], Service support , Cervical Spine CT 01/14/21 18:04 IMPRESSION: Degenerative changes of the cervical spine. Electronically Signed: Conrado Johnson DO at 18:54 EST Tel [phone], Service support , Critical Care Time Critical Care Time: Yes Critical care time (excluding procedures): - (Critical care time of 33 minutes) Discharge Plan Triage Chief Complaint: Unresponsive ED Provider: Jordi Bledsoe Dx/Rx/DC Orders Clinical Impression: Nontraumatic acute subdural hemorrhage Prescriptions: No Action Levemir U-100 Insulin 100 unit/mL solution 45 unit SC DAILY RF: 0 Levemir U-100 Insulin 100 unit/mL solution 40 unit SC QHS RF: 0 metformin 1,000 mg tablet 1,000 mg PO BID RF: 0 losartan-hydrochlorothiazide 100-12.5 mg tablet 1 tab PO DAILY RF: 0 atorvastatin 20 mg tablet 20 mg PO QPM RF: 0 Primary Care Provider: Keith Silverman Chi Referrals: Keith Silverman Chi, MD [Primary Care Provider] - Disposition Disposition: Acute Care Hospital Discharge Location: [facility]
[2021-01-14 18:31] LABS: Prothrombin Time (Protime)PT. 12.8 SECONDS (11.7-14.9)
[2021-01-14 18:32] LABS: Partial Thromboplast Time 26.8 Seconds (24.1-36.2)
[2021-01-14 18:39] LABS: Bacteria 0 SEEN /hpf (None Seen); Mucous, Urine 0 SEEN /hpf (<or=2+); Squamous Epithelial Cells - UA 0 SEEN /hpf (0-5)
[2021-01-14 18:40] LABS: Color, Urine Yellow (Yellow); Glucose, Dipstick 100 mg/dl (Normal); Ketone-Dipstick 5 mg/dl (Negative); Leukocyte Esterase-Dipstick Negative /ul (Negative); Nitrite-Dipstick Negative (Negative); Occult Blood-Urine 250 /ul (Negative); Protein-Dipstick 30 mg/dl (Negative); Urine Bilirubin Dipstick Negative (Negative); Urine Clarity Sl. Cloudy (Clear); Urine Urobilinogen Normal (Normal)
[2021-01-14 18:42] LABS: Acetaminophen (Tylenol) Level < 2.0 ug/mL (10.0-30.0); Alcohol, Blood (Medical)-Serum < 3.0 mg/dL; Salicylate < 1.7 mg/dL (2.8-20.0)
[2021-01-14 18:48] LABS: AST(SGOT) 17 U/L (15-37); Alanine Aminotransfer ALT/SGPT 19 U/L (16-61); Albumin, Serum 3.6 g/dL (3.2-5.0); Alkaline Phosphatase 97 U/L (45-117); Anion Gap 7 (5-15); BUN 26 mg/dL (7-18); BUN/Creat Ratio 17.3 RATIO (10-20); Bilirubin, Direct 0.09 mg/dL (0.00-0.30); Chloride 107 mmol/L (98-107); EST Glomerular Filtration Rate 48 mL/min (>60); Est Glom Filt Rate - Afr Amer 58 mL/min (>60); Estimated Creatinine Clearance 45.27 ml/min; Globulin 4.1 g/dL (2.2-4.2); Glucose 195 mg/dL (74-106); Potassium 3.6 mmol/L (3.5-5.1); Protein, Total 7.7 g/dL (6.4-8.2); Sodium Level 140 mmol/L (136-145); Thyroid Stim Hormone (TSH) 1.12 uIU/mL (0.358-3.74); Troponin-I HS 13 pg/mL (3.0-78.0)
[2021-01-14] MEDS: Mannitol 50gm/250ml 50 GM in Premixed Bag 1 BAG IV (19:05)
[2021-01-14 19:16] LABS: Ammonia < 10.0 umol/L (11-32)
[2021-01-14 19:20] LABS: Red Blood Cells-Urine 50-100 SEEN /hpf (0-5); White Blood Cells 0-5 SEEN /hpf (0-5)
[2021-01-14 19:51] LABS: Amphetamine Urine VISTA NEGATIVE (<1000 ng/mL); Barbiturate Urine VISTA NEGATIVE (< 200 ng/mL); Benzodiazepine Urine VISTA NEGATIVE (< 200 ng/mL); Cocaine Urine VISTA NEGATIVE (< 300 ng/mL); Ecstacy Urine VISTA NEGATIVE (< 500 ng/mL); Methadone Urine VISTA NEGATIVE (< 300 ng/mL); PCP Urine VISTA NEGATIVE (< 25 ng/mL); THC Urine VISTA NEGATIVE (< 50 ng/mL); Vista UDS pH Range 5
== END 2021-01-14 19:34 | disposition short-term general hospital (02) ==
PROVIDERS: Emergency Provider Emergency Medicine; PCP Family Medicine Geriatric Medicine
DX: I62.00 Nontraumatic subdural hemorrhage, unspecified (principal); R41.82 Altered mental status, unspecified; R11.10 Vomiting, unspecified
CPT/HCPCS: 31500; 31720; 70450; 71045; 72125; 80048; 80076; 80307; 80329; 81001; 82077; 82140; 84443; 84484; 85025; 85610; 85730; 87426; 93005; 94002; 96365; 96367; 96375; 99251; 99285; J7030; J7050; A4216; G0463; G0480; J0330

== ENCOUNTER 2021-02-09 12:10 | Inpatient (IN) | payer MEDICARE, SELFPAY ==
[2021-02-09 12:21] VITALS: BMI 27.8
[2021-02-09 13:04] VITALS: BP 122/55; PULSE 85; RESP 16; TEMP 36.6; O2SAT 94
[2021-02-09 13:06] VITALS: BP 122/55; BP 137/79; BP 139/74; PULSE 85; PULSE 89; PULSE 96
[2021-02-09 13:31] LABS: Bedside Glucose 162 mg/dL (70-110)
[2021-02-09 15:25] VITALS: O2SAT 97
[2021-02-09] MEDS: Insulin Lispro 100 UNIT/ML INSULN.PEN SC ×2 (17:50→21:05)
[2021-02-09] MEDS: metFORMIN HCl 1,000 MG Tablet 1000 MG PO (17:50)
[2021-02-09 17:56] LABS: Bedside Glucose 160 mg/dL (70-110)
[2021-02-09 19:03] VITALS: BP 119/49; PULSE 75; RESP 16; TEMP 36.6; O2SAT 94
[2021-02-09] MEDS: Carvedilol 6.25 MG Tablet PO (21:05)
[2021-02-09] MEDS: MELATONIN 3 MG TABLET PO (21:05)
[2021-02-09 21:15] LABS: Bedside Glucose 185 mg/dL (70-110)
[2021-02-10 05:26] VITALS: BP 145/58; BP 155/53; BP 161/65; PULSE 67; PULSE 71; PULSE 91
[2021-02-10 05:41] LABS: Hematocrit 31.5 % (40-54); Mean Corp Hgb Conc 31.7 g/dL (32-36); Mean Corpuscular Hgb 24.8 pg (27.0-32.0); Mean Platelet Vol. 10.4 fl (6.2-12.0); Platelet Count 288 K/mm3 (150-450); RBC Distribution Width CV 14.2 % (11.6-14.6); RBC Distribution Width SD 40.1 fl (35.1-43.9); Red Blood Count 4.04 M/mm3 (4.6-6.2); White Blood Count 5.2 K/mm3 (4.4-11.0)
[2021-02-10 06:09] LABS: ALB/GLOB Ratio 0.6 RATIO (0.9-2.4); AST(SGOT) 16 U/L (15-37); Alanine Aminotransfer ALT/SGPT 19 U/L (16-61); Albumin, Serum 2.4 g/dL (3.2-5.0); Alkaline Phosphatase 97 U/L (45-117); Anion Gap 7 (5-15); BUN 19 mg/dL (7-18); BUN/Creat Ratio 17.6 RATIO (10-20); Calcium,Total 8.9 mg/dL (8.5-10.1); Chloride 103 mmol/L (98-107); Creatinine, Serum 1.08 mg/dL (0.70-1.30); EST Glomerular Filtration Rate 70 mL/min (>60); Est Glom Filt Rate - Afr Amer 85 mL/min (>60); Estimated Creatinine Clearance 61.01 ml/min; Glucose 115 mg/dL (74-106); Magnesium 1.8 mg/dL (1.6-2.6); Potassium 3.7 mmol/L (3.5-5.1); Protein, Total 6.4 g/dL (6.4-8.2); Sodium Level 137 mmol/L (136-145)
[2021-02-10] MEDS: Enoxaparin 40 MG/0.4 ML Syringe SC (06:26)
[2021-02-10 07:05] LABS: Bedside Glucose 128 mg/dL (70-110)
[2021-02-10 07:40] VITALS: BP 155/53; PULSE 67; RESP 17; TEMP 36.3; O2SAT 93
[2021-02-10] MEDS: metFORMIN HCl 1,000 MG Tablet 1000 MG PO ×2 (09:26→16:58)
[2021-02-10] MEDS: Pioglitazone Hydrochloride 30 MG Tablet PO (09:26)
[2021-02-10] MEDS: Losartan Potassium 100 MG Tablet PO (09:26)
[2021-02-10] MEDS: Carvedilol 6.25 MG Tablet PO ×2 (09:26→21:25)
[2021-02-10] MEDS: hydroCHLOROthiazide 12.5mg 12.5 MG PO (09:27)
[2021-02-10] MEDS: Pantoprazole Sodium 40 MG Tablet PO (09:27)
[2021-02-10 11:21] LABS: Bedside Glucose 307 mg/dL (70-110)
--- NOTE | 2021-02-10 11:33 | HP.PCM_ITS ---
HPI - General General Date of Admission: 02/09/21 HPI Narrative RADHA ASHFORD, is a 75 YO M with a past medical history of diabetes mellitus type 2, hypertension, hyperlipidemia, tobacco dependence in remission, history of prostate cancer and GERD who hit his head while working in his yard on 01/14/21. He went inside and told his and shortly thereafter N/V and then lost consciousness. EMS was called and EMT's noted his pupils became asymmetric and mental status and respirations decreased. He was transported to [facility] ED. GCS was 7 at presentation to the emergency department. CT brain showed a large subdural hematoma with an 11 mm midline shift. Lab in the ED showed a l ow HGB at 12.7 with a low MCV at 79.6. Platelet count was within normal limits. PT and PTT were also within normal limits. BMP was remarkable for an elevated BUN at 26 with a creatinine of 1.5 and a GFR of 48. He had been taking HCTZ for HTN. His flying creatinine has ranged from 1.17-1.22 over the past year with a GFR in the 60's which is consistent with stage 2 CRF. Urine was positive for o ccult blood and there were 50-100 RBCs per high-power field with 0-5 WBCs. there was protein in the uirine and some ketones. A Nicardipene infusion was started to control HTN. He was intubated and [facility] was called and transported the patient to [facility] where he underwent R side hemicraniectomy with hematoma evacuation on 01/14/21. Per the DC summary from [facility] the post operative course was unremarkable. He was seen by PT/OT/ST at [facility] and transfer to acute rehab was recommended. On 02/09/21 he was transferred to [facility] acute rehab for 3 hours of therapy daily to restore function/independence at or near his baseline prior to the SDH. All lab from today was personally reviewed. The hemoglobin is 10 today with an MCV of 78. White blood cell count is within normal limits at 5.2 and platelets are also within normal limits. BMP is remarkable for an elevated BUN at 19 and a creatinine of 1.08. Phosphorus and magnesium are normal and the LFTs are unremarkable. Calcium corrected for hypoalbuminemia is 10.1 which is within normal limits. He has been complaining of nausea to the nurses.....he also had this at [facility]. The med list and all paperwork from [facility] was reviewed. He is afebrile. Heart rate is currently 67 with a blood pressure of 155/53. He is 93 to 97% saturated on room air. [facility] Medical History (Updated 02/10/21 @ 17:[address] Janice Nye DO) Chronic diarrhea Diabetes mellitus type 2 in nonobese Former smoker GERD (gastroesophageal reflux disease) HLD (hyperlipidemia) HTN (hypertension) Prostate cancer Traumatic subdural hematoma Home Medications losartan 100 mg-hydrochlorothiazide 12.5 mg tablet 1 tab PO DAILY 08/03/18 [History Last Taken Unknown] metformin 1,000 mg tablet 1,000 mg PO BID 08/03/18 [History Last Taken Unknown] carvedilol [Coreg] 6.25 mg PO BID 02/09/21 [History Last Taken Unknown] enoxaparin [Lovenox] 40 mg SUBCUT DAILY@0600 02/09/21 [History Last Taken Unknown] insulin detemir U-100 [Levemir Flexpen] 14 unit SUBCUT QHS 02/09/21 [History Last Taken Unknown] melatonin 3 mg PO QHS 02/09/21 [History Last Taken Unknown] pantoprazole [Protonix] 40 mg PO DAILY 02/09/21 [History Last Taken Unknown] pioglitazone [Actos] 30 mg PO DAILY 02/09/21 [History Last Taken Unknown] Allergy/AdvReac Type Severity Reaction Status Date / Time No Known Allergies Allergy Unverified 08/03/18 13:06 Family History (Updated 02/09/21 @ 13:15 by Lisset Arevalo) Mother Heart disease Father CVA (cerebral vascular accident) Surgical History (Updated 02/10/21 @ 17:[address] Janice Nye DO) H/O vein stripping History of repair of rotator cuff Status post craniectomy Social History (Updated 02/10/21 @ 17:[address] 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 leisure activities: exercise Smoking Status: Former smoker how long ago did patient quit smoking: about 40 years ago details: occasional substance use type: does not use what type of physical activity do you participate in: additional details: He exercises 3 times a week and the [employer] ROS Constitutional Constitutional: Denies body ache(s), chills, daytime sleepiness, difficulty sleeping, frequent falls, headache(s) or poor appetite Eyes Eyes: Reports decreased night vision; Denies diplopia, erythema, exophthalmos or eye pain ENT HEENT: Reports dizziness; Denies headache(s), loss taste/smell, neck mass, odynophagia or vertigo Cardiovascular Cardiovascular: Reports dizziness, edema, lightheadedness, nausea, orthostatic symptoms, weakness in extremities and other Details: He has weakness in the Left arm and leg since the SDH. ; Denies abdominal pain, chest pain, claudication, numbness in extremities or orthopnea Respiratory/Chest Respiratory/Chest: Denies change in mental status, chest tightness or cough Gastrointestinal Gastrointestinal: Reports nausea; Denies abdominal pain, anorexia, belching, bloating, change in bowel habits, chewing difficulty or fecal incontinence Genitourinary Genitourinary: Denies burning urination, change in urinary stream or difficulty urinating Musculoskeletal Musculoskeletal: Reports abnormal gait, difficulty walking and muscle weakness; Denies extremity pain, joint swelling or numbness Integumentary Integumentary: Reports other Details: He has a incision on the R side of the skull from recent craniectomy and there is a bone flap that has been removed and will not be replaced for a few months. He must wear a helmet when he is out of bed. Neurologic Neurologic: Reports dizziness, focal weakness, memory loss and other Details: He noticed that he has been having problems with his memory that predated the SDH. Can not remember names of people he has known for a long time. Can not remember where he puts things and is always looking for things he can not find. ; Denies headache(s), loss of vision, restless legs or vertigo Psychiatric Psychiatric: Reports cognitive impairment, difficulty concentrating and memory loss; Denies anhedonia, anxiety, depression, homicidal ideation, hopelessness, irritability, mood swings, panic attacks or suicidal thoughts Endocrine Endocrinology: Denies change in body appearance, cold intolerance or excessive sweating Hematologic/Lymphatic Hematologic/Lymphatic: Denies easy bleeding or easy bruising Allergic/Immunologic Allergic/Immunologic: Denies itchy eyes, lip swelling or rhinitis Vital Signs Vital Signs Vital Signs: 02/09/21 13:04 02/09/21 13:06 02/09/21 15:25 Temperature 97.8 F Temperature Source Oral Pulse Rate 85 Pulse Rate [Lying] 85 Pulse Rate [Sitting] 89 Pulse Rate [Standing] 96 Pulse Strength Respiratory Rate 16 Blood Pressure 122/55 H Blood Pressure [Lying] 122/55 H Blood Pressure [Sitting] 139/74 H Blood Pressure [Standing] 137/79 H Blood Pressure Mean 77 Blood Pressure Mean [Lying] 77 Blood Pressure Mean [Sitting] 95 Blood Pressure Mean [Standing] 98 Blood Pressure Source Monitor Blood Pressure Position Supine Blood Pressure Location Left Arm Pulse Ox 94 97 Oxygen Delivery Method Room Air Room Air 02/09/21 19:03 02/10/21 05:26 02/10/21 07:40 Temperature 97.8 F 97.4 F L Temperature Source Temporal Oral Pulse Rate 75 67 Pulse Rate [Lying] 67 Pulse Rate [Sitting] 71 Pulse Rate [Standing] 91 Pulse Strength Respiratory Rate 16 17 Blood Pressure 119/49 L 155/53 H Blood Pressure [Lying] 155/53 H Blood Pressure [Sitting] 145/58 H Blood Pressure [Standing] 161/65 H Blood Pressure Mean 72 87 Blood Pressure Mean [Lying] 87 Blood Pressure Mean [Sitting] 87 Blood Pressure Mean [Standing] 97 Blood Pressure Source Monitor Monitor Blood Pressure Position Semi-Fowlers Supine Blood Pressure Location Right Arm Left Arm Pulse Ox 94 93 Oxygen Delivery Method Room Air Room Air 02/10/21 09:35 Temperature Temperature Source Pulse Rate Pulse Rate [Lying] Pulse Rate [Sitting] Pulse Rate [Standing] Pulse Strength Normal (2+) Respiratory Rate Blood Pressure Blood Pressure [Lying] Blood Pressure [Sitting] Blood Pressure [Standing] Blood Pressure Mean Blood Pressure Mean [Lying] Blood Pressure Mean [Sitting] Blood Pressure Mean [Standing] Blood Pressure Source Blood Pressure Position Blood Pressure Location Pulse Ox Oxygen Delivery Method Weight Weight: 200 lb Body Mass Index (BMI) 27.8 Physical Exam Const alert, oriented x3 and no apparent distress Constitutional Narrative: He is resting in bed when I was talking with him General Appearance: cooperative and comfortable HEENT HEENT Narrative: Mucous membranes are little dry. There is a lola defect of the cranium where the bone flap was removed. The incision is healing with no openings in the skin and no dehiscence and no erythema around the incision. Head and Scalp: Negative for raccoon eyes, scalp tenderness or temporal artery tenderness Eyes PERRL, EOMs intact bilaterally, conjunctivae normal, no scleral icterus and normal visual gleason by confrontation Neck no lymphadenopathy, supple, no JVD and no carotid bruits Chest Chest: symmetrical chest wall rise Resp normal respiratory effort, no use of accessory muscles and clear to auscultation bilaterally Resp Narrative: Not tachypneic and no conversational dyspnea. Cardio regular rate, regular rhythm, S1 normal heart sound, S2 normal heart sound, no murmurs, no rub and no gallops Cardio Narrative: No ectopy GI normal to inspection, nondistended, normoactive bowel sounds and non-tender GI Narrative: No guarding with palpation. no CVA tenderness Extremity no clubbing, cyanosis or edema Extremity Narrative: No calf pain with compression. Skin Skin Narrative: No rashes, no skin breakdown. Neuro oriented x3, CN's II-XII intact bilaterally and no sensory deficits noted Neuro Narrative: No ataxia. Mild weakness in the LUE and LLE......the arm and leg do not drift however he can not hold the leg or arm up with resistance. His leg feels weak when he is trying to walk. No sensory loss. No dysarthria and no noticeable aphasia. Able to follow simple commands. Motor Exam: strength 5/5 throughout Psych affect normal Psych Narrative: Appropriate, making good eye contact. Able to stay on topic and focus. No flight of ideas. Does not appear anxious or depressed. C onversant and relating well to staff. Results Lab / Micro Data Result Diagrams: 02/10/21 05:10 02/10/21 05:10 Labs: Laboratory Results - last 24 hr 02/09/21 12:49: POC Glucose 162 H 02/09/21 17:46: POC Glucose 160 H 02/09/21 21:04: POC Glucose 185 H 02/10/21 05:10: WBC 5.2, RBC 4.04 L, Hgb 10.0 L, Hct 31.5 L, MCV 78.0 L, MCH 24.8 L, MCHC 31.7 L, RDW Std Deviation 40.1, RDW Coeff of Hermelinda 14.2, Plt Count 288, MPV 10.4 02/10/21 05:10: Sodium 137, Potassium 3.7, Chloride 103, Carbon Dioxide 27.0, Anion Gap 7, BUN 19 H, Creatinine 1.08, Estim Creat Clear Calc 61.01, Est GFR (MDRD) Af Amer 85, Est GFR (MDRD) Non-Af 70, BUN/Creatinine Ratio 17.6, Glucose 115 H, Calcium 8.9, Phosphorus 3.0, Magnesium 1.8, Total Bilirubin 0.20, AST 16, ALT 19, Alkaline Phosphatase 97, Total Protein 6.4, Albumin 2.4 L, Globulin 4.0, Albumin/Globulin Ratio 0.6 L 02/10/21 07:02: POC Glucose 128 H 02/10/21 11:16: POC Glucose 307 H Assessment & Plan Assessment/Plan (1) Traumatic subdural hematoma: (2) Diabetes mellitus type 2 in nonobese: (3) Status post craniectomy: (4) HTN (hypertension): (5) HLD (hyperlipidemia): (6) GERD (gastroesophageal reflux disease): (7) Former smoker: (8) Microcytic anemia: (9) Diabetic retinopathy associated with type 2 diabetes mellitus: (10) Microscopic hematuria: (11) Iron deficiency anemia: (12) Dehydration symptoms: (13) Orthostatic hypotension: PLAN: PLAN PT for gait stability OT for ADL's ST for evaluation Analgesics as needed Bowel protocol Fall precautions Must wear the helmet anytime he is out of bed Assess for Anxiety/Depression GI prophylaxis with pantoprazole 20 mg p.o. twice daily for GERD DVT prophylaxis with enoxaparin 40 mg subcutaneously daily Follow up with appts: 03/03/21 [facility] for imaging at 11:15 AM 03/03/21 neurologic specialty care at 1 PM PCP AM lab reviewed. will add iron studies, HGBA1C and a urine. Check orthostatics in the AM after IV fluid overnight. DC the HCTZ Decrease the Metformin to 500 mg BID and adjust the insulin as necessary Consider adding Invokana or another SGLT-2 agent in the AM since he has a FH of CAD and CVA and he has early diabetic retinopathy and proteinuria Charges/Coding Visit Charges Inpatient E&M: 57067 Init Hosp L3
[2021-02-10] MEDS: Insulin Lispro 100 UNIT/ML INSULN.PEN SC ×3 (11:34→21:22)
[2021-02-10 13:48] LABS: Ferritin 59 ng/mL (26-388); Iron 49 ug/dL (65-175); Iron Binding Capacity,Total 395 ug/dL (250-450); PERCENT IRON SATURATION 12.4 % (15.0-55.0)
--- NOTE | 2021-02-10 15:38 | CASEMGMT ---
Social Work Attempted to complete SW admit assessment with pt. Pt asleep or unavailable at attempts. Will continue to attempt. Mar Terry ,PUTTY PATCHER SUPERVISOR VENDOR QUALITY
[2021-02-10 16:20] LABS: Bedside Glucose 188 mg/dL (70-110)
--- NOTE | 2021-02-10 17:23 | PCM.RU.PYE ---
Admission Information Primary Diagnosis:: Debility secondary to craniectomy for traumatic subdural hematoma. Status Changes from Prescreening?: No changes Identified Actual Problem List:: Skin Intergrity, Pain, ALteration in Cmfrt, Cognitve Impr/Memory Loss, Mobility Impaired, Self Care Deficit and Alteration-Leisure Activ. Potential Problem List:: DVT, Bleeding, Infection, UTI, Aspiration, Falls, Skin Integrity and Depression Risk of Complications DVT: LMWH and LULY Hose Bleeding: Monitor Lab Values, Nursing to Teach Precautions for anti-coagulation therapy., Wound, if applicable, to be assessed every shift. and Stroke patients assessed for lethargy or change in status. Infection: Clinical Staff to Monitor for S/S of infection: and S/S of infection include fever, redness, warmth, etc. Urinary Tract Infection: Monitor for frequency, burning, discomfort, or incontinence. and Nursing will obtain urine sample for urinalysis and C&S when ordered. Aspiration: Clinical staff will monitor for coughing, drooling, congestion., Speech will evaluate swallowing and dsyphasia. and Nursing will monitor patient swallowing during meals. Falls: Patient will be evaluated for Fall Precautions and Patient will be placed on Fall Precautions as indicated per protocol. Skin Breakdown: Nursing will assess skin daily using assessment tool. and Nursing will place on Skin Breakdown Precautions as indicated. Pain: Clinical staff will assess patient's pain level per protocol., Medications will be given, if needed, and the pain level reassessed. and Other methods: Massage, distraction, decrease stimulus, etc. used PRN. Plan of Care Patient requires physician specializing in physical medicine and rehab oversight to provide close medical supervision of rehab issues including: Pain Management, Sleep Problems, Bowel and Bladder, Medical and co-morbidity Management, DVT prophylaxis, Rehabilitation Leadership and Coordination of treatment team Patient needs Physical Therapy: For a minimum of 1 hour and At least 5 out of 7 days Patient needs Physical Therapy to improve:: Mobility, Strengthening, Transfers, Stretching, ROM, Endurance, Stairs, Gait and Balance Patient needs Occupational Therapy: For a minimum of 1 hour and At least 5 out of 7 days Patient needs Occupational Therapy to improve ADL's incl.: Eating, Grooming, Bathing, Dressing, Toileting, Toilet transfers, Community Reintegration, Higher functioning activities, Household tasks, Adaptive Equipment, Splinting and Other activities as determined Patient requires speech therapy: For a minimum of 1 hour and At least 5 out of 7 days Patient requires speech therapy for: Swallowing, Cognition, Language Skills and Compensatory Strategies Patient requires 24/ Rehabilitation Nursing for: Pain Issues, Identifying and preventing risk factors, Monitoring and reporting current medical conditions, Assisting with ambulation, transfer, and all ADL's, Teaching patients about disease process and medications, Family teaching, Providing safe environment, Bowel and Bladder Issues, Skin integrity and Medication Management Patient needs Occupational Therapy Co Director/ Case Management for: Discharge Planning, Arranging Home Equipment or Services and Family Interventions Patient needs Dietary and Nutrition Services for: Adequate Nutrition, Nutritional Supplements and Nutritional Education Goals Patient will remain: free from falls and or injury at time of discharge. Patient will perform bed mobility at: MOD I level of assist. Patient will complete transfers from bed to chair at: MOD I level of assist. Patient will ambulate: with LRD and - (Greater than 500 feet with least restrictive device) Patient will complete upper body dressing at: MOD I level of assist. Patient will complete lower body dressing at: MOD I level of assist. Patient will complete toileting at: MOD I level of assist. Patient will perform bathing at: MOD I level of assist. Patient will complete grooming at: MOD I level of assist. Patient will complete home management skills at: MOD I level of assist. Patient will achieve: - (1 curb step and 5 regular steps with 1 HR at MOD I so that he may get around his house) Patient will have pain level of: of 3 or less Patient's skin will: remain intact Patient will receive: adequate nutrition. Discharge Planning Estimated Length of stay (days): 21 Anticipated D/C Destination: Home with Outpt Therapy Was Preadmission Assessment Accurate?: Yes
[2021-02-10] MEDS: 0.9% Normal Saline 1,000 ML 100 ML IV (20:41)
[2021-02-10] MEDS: Potassium Chloride Oral Tablet 20 MEQ PO (20:42)
[2021-02-10 20:45] VITALS: BP 149/60; PULSE 76; RESP 18; TEMP 36.7; O2SAT 94
[2021-02-10] MEDS: MELATONIN 3 MG TABLET PO (21:25)
[2021-02-10] MEDS: Pantoprazole Sodium 20 MG Tablet PO (21:26)
[2021-02-10 21:41] LABS: Bedside Glucose 232 mg/dL (70-110)
[2021-02-10 21:43] LABS: Bacteria 0 SEEN /hpf (None Seen); Mucous, Urine 0 SEEN /hpf (<or=2+); Red Blood Cells-Urine 0 SEEN /hpf (0-5); White Blood Cells 0 SEEN /hpf (0-5)
[2021-02-10 21:50] LABS: Color, Urine Yellow (Yellow); Glucose, Dipstick 50 mg/dl (Normal); Ketone-Dipstick Negative (Negative); Leukocyte Esterase-Dipstick Negative /ul (Negative); Nitrite-Dipstick Negative (Negative); Occult Blood-Urine Negative /ul (Negative); Protein-Dipstick Negative (Negative); Urine Bilirubin Dipstick Negative (Negative); Urine Clarity Clear (Clear); Urine Urobilinogen Normal (Normal)
[2021-02-10 21:56] LABS: Protein:Creat Ratio 114 mg/g CRE (0-200)
[2021-02-10 22:06] LABS: Squamous Epithelial Cells - UA 0-5 SEEN /hpf (0-5); Uric Acid Crystals Ur RARE /hpf (<or=1+)
--- NOTE | 2021-02-10 23:10 | NURSING ---
Earlier in the shift, this nurse attempted iv placement x several times and unsuccessful. Plug Stitcher tried and IV placed to left hand. IV leaking and iv fluids paused and supervisor locomotive aware.
[2021-02-11] MEDS: Enoxaparin 40 MG/0.4 ML Syringe SC (05:39)
[2021-02-11 05:46] LABS: Bedside Glucose 113 mg/dL (70-110)
[2021-02-11 06:00] VITALS: BP 117/64; BP 120/70; BP 127/66; PULSE 82; PULSE 86; PULSE 90
[2021-02-11] MEDS: Empagliflozin 10 MG Tablet PO (07:27)
[2021-02-11] MEDS: Carvedilol 6.25 MG Tablet PO ×2 (07:27→21:23)
[2021-02-11] MEDS: metFORMIN HCl 500 MG Tablet PO ×2 (07:27→17:12)
[2021-02-11] MEDS: Pioglitazone Hydrochloride 30 MG Tablet PO (07:27)
[2021-02-11] MEDS: Losartan Potassium 100 MG Tablet PO (07:27)
[2021-02-11] MEDS: Pantoprazole Sodium 20 MG Tablet PO ×2 (07:27→21:22)
[2021-02-11 08:02] VITALS: BP 117/64; PULSE 90; RESP 17; TEMP 36.5; O2SAT 94
[2021-02-11 08:45] VITALS: O2SAT 94
[2021-02-11] MEDS: 0.9% Normal Saline 1,000 ML 100 ML IV ×2 (10:03→21:23)
[2021-02-11] MEDS: 0.9% Saline Lock 10 ML Syringe IV (10:03)
--- NOTE | 2021-02-11 10:15 | CASEMGMT ---
Social Work Met with patient for initial assessment. Explained Pending sale to [facility] insurance with NRD 02/11 and continued stay is not guaranteed. Pt progressing well with PT/OT/ST. The goal is for pt to return home with at [facility]. Pt was completely independent prior, no AD, driving, managing meds, and would go to [facility] with 3x/wk for exercise classes. Pt was very active and would like to return home where does not have to assist. Will have Team meeting during stay. SW to continue to follow for safe discharge planning. Mar Terry ,VEGETABLE TRIMMER FINISHED CLOTH EXAMINER
[2021-02-11 11:11] LABS: Bedside Glucose 145 mg/dL (70-110)
--- NOTE | 2021-02-11 11:36 | PN_ITS ---
Progress Note Afebrile Tilt test is negative today following hydration with intravenous fluids. He is maintaining appropriate oxygen saturation on room air. Fair oral intake. The UA showed 0 RBCs and 0 WBCs per high-power field yesterday. Urine protein was increased at 19 mg/dL however the protein/creatinine ratio is within normal limits. Hemoglobin A1c was 7%. The at bedtime blood sugar was 232 and the FBS today is 113. Blood sugar prior to lunch is 145. No hypoglycemia. stool for occult blood was negative. Post void residuals have ranged from 96-212. Ditropan was discontinued at admission. JR denies chest pain, shortness of breath, lightheadedness, nausea, vomiting, abdominal pain, dysuria. He feels as though he empties his bladder when he urin ates. He denies cephalgia. Physical Exam Const alert, oriented x3 and no apparent distress General Appearance: cooperative, well kempt and well developed Resp normal respiratory effort, normal air movement and clear to auscultation bilaterally Effort and Inspection: able to speak in complete sentences Cardio regular rate, regular rhythm, no murmurs, no rub and no gallops Cardio Narrative: occasional premature beat GI soft to palpation, non-tender and non-distended GI Narrative: normal BS's Extremity no calf tenderness and no pedal edema Skin General Skin Exam: no breakdown Rashes: no rashes Neuro Neuro Narrative: slow to process when given a command. Some trouble word finding. Psych cooperative and affect normal Assessment & Plan Assessment/Plan (1) Debility: PLAN: Continue therapy. Will need ST post DC for cognitive dysfunction. He is ambulating well. (2) Traumatic subdural hematoma: PLAN: He does not really know what happened to him. He had a pain in his head so he surmises something hit him in the head when he was outside but, there was no trauma to the skull. I think it is conceivable that he may have passed out. He tells me his last HGBA1C was 6.4 and this is low for his age......he may have gotten hypoglycemic with the exercise? Would attempt to keep the HGBA1C 7-7.5 with his age to avoid hypoglycemia. (3) Status post craniectomy: PLAN: At [facility]. Has an appt in March at [facility] and also an appt with Dr. Rene in May. Bone flap will need replaced going forward. (4) Microcytic anemia: PLAN: His stool is heme negative. He has had microscopic hematuria and he has had prostate CA......may need to refer to urology to make sure there is not a bladder tumor. I suspect the source of the blood loss is the tract. (5) Iron deficiency anemia: PLAN: Started him on Ferrous sulfate and Vitamin C. If in 6 weeks the HGB has not increased he may need an iron infusion. (6) Microscopic hematuria: (7) Diabetes mellitus type 2 in nonobese: PLAN: Started on a SGLPT-2 to help protect against cardiac and cerebrovascular disease. Had to decrease the Metformin due to diarrhea when taking 1,000 mg BID. HGBA1C is 7 at present and would keep between 7-7.5 in this elderly patient with cognitive dysfunction and suspected dementia to avoid hypoglycemia. (8) Memory problem: PLAN: His problem with memory predates the SDH. Will discuss with his how extensive the memory loss was and what she has noticed. He tells me he is aware that he can not remember things but, he has not discussed this with Dr. Silverman. (9) Dementia: Visit Charges Inpatient E&M: 84769 Subs Hosp L2
[2021-02-11] MEDS: Ascorbic Acid 500 MG Tablet 1000 MG PO (11:55)
[2021-02-11] MEDS: Ferrous Sulfate 325 MG Tablet PO (11:55)
--- NOTE | 2021-02-11 14:54 | CHAPLAIN ---
Type of Pastoral Visit _x__ Initial Visit ___ Follow-up Visit ___ On-call Visit ___ General Patient Visit ___ Spiritual Assessment ___ Family Conference ___ Bereavement ___ Rapid Response ___ Code Blue ___ Other (describe below) Pastoral Care Referral From _x__ Patient ___ Family ___ Nurse ___ Physician ___ Business Technology Teacher ___ Senior Field Engineer ___ Other (describe below) Sacrament/Intervention _x__ Active listening ___ Anointing ___ Anabaptism ___ Bereavement ___ Communion _x__ Brea exploration ___ _x__ Life review _x__ Prayer ___ Reconciliation ___ Sacrament of Sick _x__ Supportive presence ___ Wedding ___ Other (describe below) Pastoral Comments patient is welcoming of spiritual care support; pt describes his life of helping in his islam and in his neighborhood; pt is active and involved with friends; pt speaks of concern for other friends who are sick; pt gives some life review and welcomes the prayer support
[2021-02-11 16:21] LABS: Bedside Glucose 226 mg/dL (70-110)
[2021-02-11] MEDS: Insulin Lispro 100 UNIT/ML INSULN.PEN SC (17:11)
[2021-02-11] MEDS: MELATONIN 3 MG TABLET PO (21:22)
[2021-02-11 22:00] VITALS: BP 140/80; PULSE 82; RESP 18; TEMP 36.9; O2SAT 92
[2021-02-11 22:15] LABS: Bedside Glucose 159 mg/dL (70-110)
[2021-02-12 06:00] VITALS: BP 133/66; BP 138/65; BP 139/60; PULSE 68; PULSE 72; PULSE 79
[2021-02-12] MEDS: Enoxaparin 40 MG/0.4 ML Syringe SC (06:24)
[2021-02-12 07:15] LABS: Bedside Glucose 80 mg/dL (70-110)
[2021-02-12] MEDS: metFORMIN HCl 500 MG Tablet PO ×2 (08:23→17:23)
[2021-02-12] MEDS: Pantoprazole Sodium 20 MG Tablet PO ×2 (08:23→21:40)
[2021-02-12] MEDS: Empagliflozin 10 MG Tablet PO (08:23)
[2021-02-12] MEDS: Losartan Potassium 100 MG Tablet PO (08:23)
[2021-02-12] MEDS: Pioglitazone Hydrochloride 30 MG Tablet PO (08:23)
[2021-02-12] MEDS: Carvedilol 6.25 MG Tablet PO ×2 (08:23→21:40)
[2021-02-12 10:00] VITALS: BP 137/65; PULSE 64; RESP 18; TEMP 36.6; O2SAT 95
[2021-02-12 12:10] LABS: Bedside Glucose 164 mg/dL (70-110)
[2021-02-12] MEDS: Ferrous Sulfate 325 MG Tablet PO (12:17)
[2021-02-12] MEDS: Ascorbic Acid 500 MG Tablet 1000 MG PO (12:17)
[2021-02-12] MEDS: Insulin Lispro 100 UNIT/ML INSULN.PEN SC ×2 (12:17→17:23)
[2021-02-12 17:31] LABS: Bedside Glucose 169 mg/dL (70-110)
[2021-02-12 21:30] VITALS: BP 138/56; PULSE 67; RESP 16; TEMP 36.8; O2SAT 94
[2021-02-12] MEDS: MELATONIN 3 MG TABLET PO (21:40)
[2021-02-12 22:16] LABS: Bedside Glucose 182 mg/dL (70-110)
--- NOTE | 2021-02-13 04:46 | NURSING ---
REVIEWED AND AGREE WITH SITE DIRECTOR'S FUNCTIONAL ASSESSMENT AND HANDOFF CHARTING.
[2021-02-13] MEDS: 0.9% Saline Lock 10 ML Syringe IV ×2 (05:12→21:58)
[2021-02-13] MEDS: Enoxaparin 40 MG/0.4 ML Syringe SC (05:32)
[2021-02-13 06:21] LABS: Bedside Glucose 111 mg/dL (70-110)
[2021-02-13] MEDS: Losartan Potassium 100 MG Tablet PO (08:14)
[2021-02-13] MEDS: Carvedilol 6.25 MG Tablet PO ×2 (08:14→21:56)
[2021-02-13] MEDS: Pioglitazone Hydrochloride 30 MG Tablet PO (08:14)
[2021-02-13] MEDS: metFORMIN HCl 500 MG Tablet PO ×2 (08:14→18:08)
[2021-02-13] MEDS: Empagliflozin 10 MG Tablet PO (08:14)
[2021-02-13] MEDS: Pantoprazole Sodium 20 MG Tablet PO ×2 (08:15→21:57)
[2021-02-13 10:00] VITALS: BP 137/62; PULSE 69; RESP 18; TEMP 36.9; O2SAT 92
--- NOTE | 2021-02-13 11:26 | PN_ITS ---
Progress Note Jimbo was seen on team rounds today. His Michelle was present in the room. Afebrile Blood pressure is adequately controlled Heart rate is within normal limits Maintaining appropriate oxygen saturation on room air Blood sugar record was reviewed. All blood sugars are less than 200 and there is no hypoglycemia. Diarrhea has resolved with decrease in the Metformin dose to 500 mg p.o. twice daily Jimbo has no complaints to me. He did complain to nursing that he feels a little congested. No CP, cough, ST, loss of smell or taste. Denies lightheadedness after the IV fluids were administered and the Tilt test after hydration was negative. He got a little emotional after the ST pointed out some errors in cognition. He is aware that he has some problems with memory and he told me this when I did his H&P. Physical Exam Const alert, oriented x3 and no apparent distress Constitutional Narrative: appear comfortable General Appearance: cooperative Eyes Eyes Narrative: Pupils are equal round and reactive to light. Extraocular muscles are intact. There is no scleral icterus and no conjunctival injection. He does have decreased blink. Resp normal respiratory effort and clear to auscultation bilaterally Effort and Inspection: able to speak in complete sentences Cardio regular rate, regular rhythm and no gallops GI soft to palpation, non-tender and non-distended GI Narrative: Good bowel function Extremity no calf tenderness and no pedal edema Skin Rashes: no rashes Wound Narrative: The cranial incision is intact with no dehiscence. There is no nisha-incisional erythema and no discharge from the incision. there is no bulging where the blone flap was removed on the R side Psych cooperative and affect normal Psych Narrative: He gets a little tearful when he recognizes he has some co gnitive dysfunction Assessment & Plan Assessment/Plan (1) Dementia: (2) Debility: (3) Orthostatic hypotension: (4) Diabetic retinopathy associated with type 2 diabetes mellitus: (5) Status post craniectomy: (6) Diabetes mellitus type 2 in nonobese: (7) Traumatic subdural hematoma: PLAN: 1. will need an evaluation as an OP for treatable causes of dementia. 2. BS's are adequately controlled. 3. microcytic anemia is due to chronic blood loss and I suspect the source of the blood loss is the tract. He has a hx of prostate CA and recommended he follow up with urology to make sure there is not tumor in the bladder 4. continue therapy - he is making good progress Visit Charges Inpatient E&M: 04498 Subs Hosp L2
[2021-02-13 12:00] LABS: Bedside Glucose 134 mg/dL (70-110)
--- NOTE | 2021-02-13 14:35 | CASEMGMT ---
Social Work IDT met with patient and , Michelle, for Team meeting. Discussed patient's progress in PT/OT/ST and nursing. Pt progressing well. Pt having loss of balance with left foot drop on steps, and pt has 5 steps to enter. Pt requires cues r/t cognition. Explained [facility] insurance with [employer] 02/20 and continued stay is not guaranteed. The goal is for pt to return home with . SW to order continued therapy and any DME needs at [place]. Will ReTeam next week. SW to continue to follow. ASTRID Reyes TIRE MAKER
[2021-02-13] MEDS: Ascorbic Acid 500 MG Tablet 1000 MG PO (14:51)
[2021-02-13] MEDS: Ferrous Sulfate 325 MG Tablet PO (14:51)
[2021-02-13 16:51] LABS: Bedside Glucose 155 mg/dL (70-110)
[2021-02-13] MEDS: Insulin Lispro 100 UNIT/ML INSULN.PEN SC (18:08)
[2021-02-13 19:45] VITALS: BP 138/61; PULSE 77; RESP 18; TEMP 36.6; O2SAT 96
[2021-02-13] MEDS: Ipratropium Bromide 0.06% NASAL SPRAY 2 SPRAY NASAL (21:55)
[2021-02-13] MEDS: MELATONIN 3 MG TABLET PO (21:57)
[2021-02-13 22:10] LABS: Bedside Glucose 188 mg/dL (70-110)
[2021-02-14] MEDS: Enoxaparin 40 MG/0.4 ML Syringe SC (05:51)
--- NOTE | 2021-02-14 06:04 | NURSING ---
pt awake. voided per urinal. Pt requesting metamucil. Pt said he takes it every night. c/o he didnt have bm. . Will notify in am
[2021-02-14 07:01] LABS: Bedside Glucose 102 mg/dL (70-110)
[2021-02-14 07:30] VITALS: BP 149/62; PULSE 73; RESP 18; TEMP 36.6; O2SAT 94
[2021-02-14] MEDS: metFORMIN HCl 500 MG Tablet PO ×2 (08:21→17:07)
[2021-02-14] MEDS: Pioglitazone Hydrochloride 30 MG Tablet PO (08:22)
[2021-02-14] MEDS: Empagliflozin 10 MG Tablet PO (08:22)
[2021-02-14] MEDS: Ipratropium Bromide 0.06% NASAL SPRAY 2 SPRAY NASAL ×2 (08:23→21:57)
[2021-02-14] MEDS: Pantoprazole Sodium 20 MG Tablet PO ×2 (08:23→21:59)
[2021-02-14] MEDS: Losartan Potassium 100 MG Tablet PO (08:23)
[2021-02-14] MEDS: Carvedilol 6.25 MG Tablet PO ×2 (08:24→21:57)
[2021-02-14 12:15] LABS: Bedside Glucose 157 mg/dL (70-110)
[2021-02-14] MEDS: Insulin Lispro 100 UNIT/ML INSULN.PEN SC ×2 (12:53→17:08)
[2021-02-14] MEDS: Ferrous Sulfate 325 MG Tablet PO (12:54)
[2021-02-14] MEDS: Ascorbic Acid 500 MG Tablet 1000 MG PO (14:09)
[2021-02-14 16:40] LABS: Bedside Glucose 169 mg/dL (70-110)
[2021-02-14 20:02] VITALS: BP 147/66; PULSE 81; RESP 18; TEMP 36.3; O2SAT 95
[2021-02-14] MEDS: MELATONIN 3 MG TABLET PO (21:58)
[2021-02-14 22:00] LABS: Bedside Glucose 200 mg/dL (70-110)
[2021-02-14] MEDS: Psyllium 1 PACKET PO (22:04)
[2021-02-15] MEDS: Enoxaparin 40 MG/0.4 ML Syringe SC (06:34)
[2021-02-15 06:35] LABS: Bedside Glucose 108 mg/dL (70-110)
[2021-02-15 07:42] VITALS: BP 138/64; PULSE 69; RESP 16; TEMP 36.8; O2SAT 93
[2021-02-15] MEDS: Losartan Potassium 100 MG Tablet PO (07:50)
[2021-02-15] MEDS: Empagliflozin 10 MG Tablet PO (07:51)
[2021-02-15] MEDS: metFORMIN HCl 500 MG Tablet PO ×2 (07:51→17:27)
[2021-02-15] MEDS: Pioglitazone Hydrochloride 30 MG Tablet PO (07:51)
[2021-02-15] MEDS: Carvedilol 6.25 MG Tablet PO ×2 (07:51→21:27)
[2021-02-15] MEDS: Ipratropium Bromide 0.06% NASAL SPRAY 2 SPRAY NASAL ×2 (07:52→21:26)
[2021-02-15] MEDS: Pantoprazole Sodium 20 MG Tablet PO ×2 (07:52→21:28)
[2021-02-15 11:05] LABS: Bedside Glucose 183 mg/dL (70-110)
[2021-02-15] MEDS: Ferrous Sulfate 325 MG Tablet PO (11:38)
[2021-02-15] MEDS: Ascorbic Acid 500 MG Tablet 1000 MG PO (11:38)
[2021-02-15] MEDS: Insulin Lispro 100 UNIT/ML INSULN.PEN SC ×2 (11:38→17:27)
[2021-02-15 16:25] LABS: Bedside Glucose 182 mg/dL (70-110)
[2021-02-15 20:13] VITALS: BP 121/73; PULSE 85; RESP 18; TEMP 36.5; O2SAT 97
[2021-02-15 21:16] LABS: Bedside Glucose 252 mg/dL (70-110)
[2021-02-15 21:21] VITALS: RESP 16; O2SAT 93
[2021-02-15] MEDS: Psyllium 1 PACKET PO (21:28)
[2021-02-15] MEDS: MELATONIN 3 MG TABLET PO (21:28)
[2021-02-16] MEDS: Enoxaparin 40 MG/0.4 ML Syringe SC (05:49)
[2021-02-16 06:30] LABS: Bedside Glucose 90 mg/dL (70-110)
[2021-02-16 07:22] VITALS: BP 164/69; PULSE 69; RESP 14; TEMP 37.2; O2SAT 95
[2021-02-16] MEDS: Carvedilol 6.25 MG Tablet PO ×2 (08:27→21:15)
[2021-02-16] MEDS: Losartan Potassium 100 MG Tablet PO (08:27)
[2021-02-16] MEDS: Pantoprazole Sodium 20 MG Tablet PO ×2 (08:27→21:15)
[2021-02-16] MEDS: metFORMIN HCl 500 MG Tablet PO ×2 (08:27→17:02)
[2021-02-16] MEDS: Empagliflozin 10 MG Tablet PO (08:28)
[2021-02-16] MEDS: Ipratropium Bromide 0.06% NASAL SPRAY 2 SPRAY NASAL ×2 (08:28→21:15)
[2021-02-16] MEDS: Pioglitazone Hydrochloride 30 MG Tablet PO (08:29)
[2021-02-16 11:01] LABS: Bedside Glucose 190 mg/dL (70-110)
[2021-02-16] MEDS: Insulin Lispro 100 UNIT/ML INSULN.PEN SC ×2 (12:11→17:00)
[2021-02-16] MEDS: Ascorbic Acid 500 MG Tablet 1000 MG PO (12:11)
[2021-02-16] MEDS: Ferrous Sulfate 325 MG Tablet PO (12:11)
[2021-02-16 16:06] LABS: Bedside Glucose 169 mg/dL (70-110)
[2021-02-16 19:39] VITALS: BP 148/61; PULSE 75; RESP 18; TEMP 36.5; O2SAT 94
[2021-02-16 21:00] LABS: Bedside Glucose 236 mg/dL (70-110)
[2021-02-16 21:15] VITALS: PULSE 77; O2SAT 93
[2021-02-16] MEDS: MELATONIN 3 MG TABLET PO (21:15)
[2021-02-16] MEDS: Psyllium 1 PACKET PO (21:16)
[2021-02-17] MEDS: Enoxaparin 40 MG/0.4 ML Syringe SC (06:03)
[2021-02-17 06:41] LABS: Bedside Glucose 99 mg/dL (70-110)
[2021-02-17 07:28] VITALS: BP 138/58; PULSE 70; RESP 16; TEMP 36.8; O2SAT 94
[2021-02-17] MEDS: Pioglitazone Hydrochloride 30 MG Tablet PO (09:15)
[2021-02-17] MEDS: Losartan Potassium 100 MG Tablet PO (09:15)
[2021-02-17] MEDS: Empagliflozin 10 MG Tablet PO (09:15)
[2021-02-17] MEDS: Ipratropium Bromide 0.06% NASAL SPRAY 2 SPRAY NASAL ×2 (09:15→22:55)
[2021-02-17] MEDS: Carvedilol 6.25 MG Tablet PO ×2 (09:15→22:55)
[2021-02-17] MEDS: metFORMIN HCl 500 MG Tablet PO ×2 (09:15→17:23)
--- NOTE | 2021-02-17 09:33 | PN_ITS ---
Progress Note Afebrile VSS Maintaining appropriate oxygen saturation on RA Oral intake is good Discussed with nursing - no problems that need addressed Reviewed the PT/OT/ST notes Medication list reviewed. Blood sugar record was reviewed. The at bedtime blood sugars have been mildly increased above 200. Fasting blood sugars are well controlled with no hypo glycemia. He has been getting 1 to 2 units of insulin on average twice daily. Current hypoglycemic regimen includes Actos 30 mg daily, Jardiance 10 mg daily, Metformin 500 mg twice daily and Lantus 14 units at bedtime. Higher dose of Metformin cause diarrhea. Physical Exam Const alert Resp clear to auscultation bilaterally Cardio regular rate and regular rhythm GI soft to palpation, non-tender and non-distended Extremity no calf tenderness and no pedal edema Skin Skin Narrative: No rashes, no breakdown, incision is intact with no erythema, purulent discharge or dehiscence. Assessment & Plan Assessment/Plan (1) Status post craniectomy: PLAN: 1. Check a CBC, BMP and mag in the AM. 2. continue therapy 3. continue the iron + vitamin C supplementation Visit Charges Inpatient E&M: 71942 Subs Hosp L1
[2021-02-17] MEDS: Pantoprazole Sodium 20 MG Tablet PO ×2 (10:22→22:55)
[2021-02-17] MEDS: Ascorbic Acid 500 MG Tablet 1000 MG PO (11:18)
[2021-02-17] MEDS: Ferrous Sulfate 325 MG Tablet PO (11:18)
[2021-02-17] MEDS: Insulin Lispro 100 UNIT/ML INSULN.PEN SC (11:20)
[2021-02-17 11:51] LABS: Bedside Glucose 199 mg/dL (70-110)
[2021-02-17 17:30] LABS: Bedside Glucose 145 mg/dL (70-110)
[2021-02-17 19:54] VITALS: BP 136/60; PULSE 70; RESP 17; TEMP 36.6; O2SAT 95
[2021-02-17 22:51] LABS: Bedside Glucose 216 mg/dL (70-110)
[2021-02-17] MEDS: MELATONIN 3 MG TABLET PO (22:55)
[2021-02-17] MEDS: Psyllium 1 PACKET PO (22:55)
[2021-02-18 06:07] LABS: Hematocrit 31.2 % (40-54); Hemoglobin 9.4 g/dL (13.0-16.5); Mean Corp Hgb Conc 30.1 g/dL (32-36); Mean Corpuscular Hgb 24.5 pg (27.0-32.0); Mean Corpuscular Volume 81.3 fL (80-94); Mean Platelet Vol. 10.5 fl (6.2-12.0); Platelet Count 208 K/mm3 (150-450); RBC Distribution Width CV 15.2 % (11.6-14.6); RBC Distribution Width SD 44.5 fl (35.1-43.9); Red Blood Count 3.84 M/mm3 (4.6-6.2); White Blood Count 5.7 K/mm3 (4.4-11.0)
[2021-02-18] MEDS: Enoxaparin 40 MG/0.4 ML Syringe SC (06:18)
[2021-02-18 06:30] LABS: Bedside Glucose 139 mg/dL (70-110)
[2021-02-18 06:36] LABS: Anion Gap 5 (5-15); BUN 15 mg/dL (7-18); Calcium,Total 8.8 mg/dL (8.5-10.1); Chloride 108 mmol/L (98-107); Creatinine, Serum 0.83 mg/dL (0.70-1.30); EST Glomerular Filtration Rate 95 mL/min (>60); Est Glom Filt Rate - Afr Amer 115 mL/min (>60); Estimated Creatinine Clearance 79.38 ml/min; Glucose 153 mg/dL (74-106); Potassium 3.7 mmol/L (3.5-5.1); Sodium Level 140 mmol/L (136-145)
[2021-02-18 07:35] VITALS: BP 135/61; PULSE 68; RESP 16; TEMP 36.9; O2SAT 93
[2021-02-18] MEDS: Empagliflozin 10 MG Tablet PO (08:05)
[2021-02-18] MEDS: Pioglitazone Hydrochloride 30 MG Tablet PO (08:05)
[2021-02-18] MEDS: Carvedilol 6.25 MG Tablet PO ×2 (08:05→21:17)
[2021-02-18] MEDS: Losartan Potassium 100 MG Tablet PO (08:05)
[2021-02-18] MEDS: Ipratropium Bromide 0.06% NASAL SPRAY 2 SPRAY NASAL ×2 (08:05→21:17)
[2021-02-18] MEDS: Pantoprazole Sodium 20 MG Tablet PO ×2 (08:05→21:17)
[2021-02-18] MEDS: metFORMIN HCl 500 MG Tablet PO ×2 (08:05→17:10)
--- NOTE | 2021-02-18 10:23 | CASEMGMT ---
Social Work IDT discussed patient's progress 02/17. Recommending complete therapy training to ensure she can care for pt at home. Spoke with this date to inquire about DC plans and training. agreeable to training 02/20 at 9 am prior to Team meeting. IDT can discuss and plan for safe DC. Insurance update is 02/20 and continued stay is not guaranteed. SW to continue to follow. Mar Terry, BUDGET CONSULTANT GR[employer]
[2021-02-18 11:56] LABS: Bedside Glucose 179 mg/dL (70-110)
[2021-02-18] MEDS: Insulin Lispro 100 UNIT/ML INSULN.PEN SC ×2 (12:01→17:10)
[2021-02-18] MEDS: Ascorbic Acid 500 MG Tablet 1000 MG PO (12:01)
[2021-02-18] MEDS: Ferrous Sulfate 325 MG Tablet PO (12:01)
[2021-02-18 17:21] LABS: Bedside Glucose 175 mg/dL (70-110)
--- NOTE | 2021-02-18 17:41 | PCM.PN.BLA ---
Progress Note Afebrile VSS-blood pressure is adequately controlled. Maintaining appropriate oxygen saturation on RA Oral intake is adequate Discussed with nursing - no problems that need addressed Reviewed the PT/OT/ST notes and spoke with the ST. Have trouble with thought processing. Not always aware he is having a problem but, he recognzes that his memory is not so good. Medication list reviewed. No diarrhea since the Metformin dose was decreased to 500 mg BID. Constipation has resolved with the Metamucil. He is sleeping better with the melatonin. The blood sugar record was reviewed. The blood sugars are adequately controlled on the present drug regimen. He has had no hypoglycemia. The FBS this morning was 139. His does the cooking at home and she monitors his carbohydrate intake. denies chest pain, shortness of breath, palpitations, lightheadedness, nausea, diaphoresis, cephalgia, chills, dysuria. I spoke with and his this evening. was having memory problems prior to the SDH to the point where his friends were commenting on this. His mother started with dementia in her 70's. He was having trouble answering some questions while I was in the room. We were talking about his being a good cook and I asked him what his favorite food was. He came up with he did not like steak but, could not tell me what he liked. His prompted him and said well you like my roast and then he perked up and said yes. He is very alert and is cooperative with therapy. He is pleasant and interacts with staff well. He makes good eye contact with me. Lungs - good air exchange and the lungs are CTA HRRR with occasional ectopic, No MM and no gallop Abd is soft. He has lost about 15 lbs since he had the SDH. Normal BS's and no guarding with palpation no edema and no klae pain no rashes and no skin breakdown The incision is healing well and there is no dehiscence and no erythema or purulent DC. No bulging of the site where the bone flap was removed. Impressions 1. SDH - S/P craniectomy to decompress. Appts set up for [facility] in March and May for follow up. They will decide when the bone flap will be replaced.....until that time he must wear the helmet any time he is up. No lifting more than 5 lbs. No bending over. No driving. His was told tonviktor that someone will need to be with him at all times in the home for at least 2 weeks until we can be sure he will be safe. Right now he has poor safety awareness and thinks he can do more than he should. Can not always remember his precautions. 2. He has been microcytic as far back as 2016. The serum iron is low at 49 and the iron saturation is low at 12.4. The ferritin is within normal limits at 59 however ferritin is an acute phase reactant and it is likely falsely elevated secondary to recent trauma/inflammation. He was started on Vitamin C + iron supplementation. He may need IV iron if the HGB and the MCV do not start to increase. The source of the chronic blood loss is unknown at this time. The hemoccult stool was negative. A recent UA had microscopic hematuria but when we rechecked a UA it was gone. I am concerned because he has a hx og prostate CA and he could have a bladder tumor. This will need to be further investigated as an OP. 3. Suspected early dementia with memory loss prior to the recent SDH. Patient is aware he has been losing his memory and his friends have commented to his about this. His mother started with dementia in her 70's. He needs to have an OP W/U for treatable causes of dementia and if there are none I recommended he consider getting an appt with Dr. Charmaine Shi who specializes in geriatrics and dementia. They have a very compressive program and do a great job with education. They also address diet and antioxidants. would like to see him treated before the disease progresses. He and his agree. 4. He was dehydrated when he came in to the and was on HCTz which has been discontinued. We really do not know what happended to him in his yard and he may have gotten orthostatic and passed out and hit his head. He was also outside working and his BS may have dropped. His HGBA1C when last checked he said was 6.4. Would like to see his HGBA1C between 7 and 7.5 to prevent hypoglycemia in this elderly patient with cognitive dysfunction Visit Charges Inpatient E&M: 35811 Subs Hosp L2
[2021-02-18] MEDS: Psyllium 1 PACKET PO (21:17)
[2021-02-18] MEDS: MELATONIN 3 MG TABLET PO (21:17)
[2021-02-18 21:20] VITALS: BP 155/69; PULSE 78; RESP 18; TEMP 36.3; O2SAT 97
[2021-02-18 21:40] LABS: Bedside Glucose 197 mg/dL (70-110)
[2021-02-19] MEDS: Enoxaparin 40 MG/0.4 ML Syringe SC (06:05)
[2021-02-19 07:11] LABS: Bedside Glucose 158 mg/dL (70-110)
[2021-02-19] MEDS: Insulin Lispro 100 UNIT/ML INSULN.PEN SC ×3 (08:06→16:52)
[2021-02-19] MEDS: Carvedilol 6.25 MG Tablet PO ×2 (08:07→20:10)
[2021-02-19] MEDS: Empagliflozin 10 MG Tablet PO (08:07)
[2021-02-19] MEDS: Losartan Potassium 100 MG Tablet PO (08:07)
[2021-02-19] MEDS: Pantoprazole Sodium 20 MG Tablet PO ×2 (08:07→20:11)
[2021-02-19] MEDS: metFORMIN HCl 500 MG Tablet PO ×2 (08:07→16:54)
[2021-02-19] MEDS: Pioglitazone Hydrochloride 30 MG Tablet PO (08:07)
[2021-02-19] MEDS: Ipratropium Bromide 0.06% NASAL SPRAY 2 SPRAY NASAL ×2 (08:07→20:11)
[2021-02-19 09:24] VITALS: BP 144/68; PULSE 87; RESP 16; TEMP 36.6; O2SAT 93
[2021-02-19] MEDS: Ferrous Sulfate 325 MG Tablet PO (11:58)
[2021-02-19] MEDS: Ascorbic Acid 500 MG Tablet 1000 MG PO (11:58)
[2021-02-19 12:10] LABS: Bedside Glucose 169 mg/dL (70-110)
[2021-02-19 17:05] LABS: Bedside Glucose 191 mg/dL (70-110)
[2021-02-19 20:00] VITALS: BP 138/61; PULSE 79; RESP 17; TEMP 36.7; O2SAT 96
[2021-02-19] MEDS: Psyllium 1 PACKET PO (20:10)
[2021-02-19] MEDS: MELATONIN 3 MG TABLET PO (20:11)
[2021-02-19 20:25] LABS: Bedside Glucose 199 mg/dL (70-110)
--- NOTE | 2021-02-19 20:57 | PN.TCU_ITS ---
Subjective Subjective Patient seen, examined. I woke him up from sleep. It took him a moment to recognize me as his primary care doctor. He has no new problems, concerns, issues, complaints. He is looking forward to having his skull replaced, and going home. Objective Data Objective Data Vital Signs: Vital Signs Temp Pulse Resp BP Pulse Ox 97.8 F 87 16 144/68 H 93 02/19/21 09:24 02/19/21 09:24 02/19/21 09:24 02/19/21 09:24 02/19/21 09:24 Oxygen Delivery Method Room Air Weight: 82.5 kg Body Mass Index (BMI) 27.8 Intake & Output: Intake and Output for Last 24 Hours 02/17/21 02/18/21 02/19/21 23:59 23:59 23:59 Intake Total 860 / 860 2130 / 2130 1580 / 1580 Output Total 800 / 800 1000 / 1000 Balance 60 / 60 1130 / 1130 1580 / 1580 Lab / Micro Data Result Diagrams: 02/18/21 04:40 02/18/21 04:40 Labs: Laboratory Results - last 24 hr 02/18/21 21:20: POC Glucose 197 H 02/19/21 06:08: POC Glucose 158 H 02/19/21 11:56: POC Glucose 169 H 02/19/21 16:51: POC Glucose 191 H 02/19/21 20:09: POC Glucose 199 H Micro: Microbiology 02/10/21 22:30 Stool Stool Occult Blood (ANASTACIO) - Final Physical Exam Const alert and oriented x3 General Appearance: cooperative HEENT normocephalic Eyes PERRL and EOMs intact bilaterally Neck supple, no JVD and no carotid bruits Resp normal respiratory effort, normal air movement and clear to auscultation bilaterally Cardio regular rate and regular rhythm GI normal to inspection, nondistended, normoactive bowel sounds, non-tender and non-distended Extremity normal capillary refill General Extremity: Negative for edema Skin no rashes or lesions noted General Skin Exam: no breakdown Psych affect normal Appearance: appropriate Assessment & Plan Assessment/Plan (1) Debility: (2) Subdural hematoma: (3) History of craniotomy: (4) Hypertension: (5) Diabetes mellitus: (6) Iron deficiency anemia: (7) Insomnia: (8) Gastroesophageal reflux disease: PLAN: 75 year old male with below past medical history hospitalized for subdural hematoma, status post craniotomy, admitted to for 3 hours daily rehabilitation, strengthening, prior to discharge home with . * Debility - PT/OT. * Cognition - ST. * Pain - Tylenol 650mg q4h prn pain (1-10). * Bowel - Metamucil 1 packet qhs, Dulcolax 10mg pr x 1 prn, MOM 30ml po x 1 prn. * DVT prophylaxis - Lovenox 40mg sc daily. * Vitamin C deficiency - Vitamin C 1000mg daily. * Hypertension - Coreg 6.25mg bid, Losartan 100mg daily. * Diabetes Mellitus II - Metformin 500mg bidcm, Jardiance 10mg daily, Pioglitazone 30mg daily, Lantus 14 units qhs, Humalog sliding scale insulin, D50 IV x 1 dose prn hypoglycemia, Glucagon 1mg im x 1 dose prn hypoglycemia. * Iron deficiency anemia - Iron 325mg daily. * Allergic rhinitis - Atrovent 2 sprays nasal bid. * Insomnia - Melatonin 3mg qhs. * GERD - Pantoprazole 20mg bid. Capacity Capacity Assessment Tool Can the patient make a choice & communicate that choice?: Yes Can the patient understand benefits, risks and alternatives?: Yes Can the patient make a logical, rational choice?: Yes Is the choice the patient makes consistent w/ their values?: Yes Is there an impending, emergent risk to the patient?: No Does the patient have an Advance Directive?: No Is there a Surrogate Available?: Yes i.e. HCPOA: Yes i.e. close relative (spouse, child, parent, sibling)?: Yes
--- NOTE | 2021-02-20 01:38 | NURSING ---
Reviewed and agree with RECORDS OFFICER notes and assessment.
[2021-02-20] MEDS: Enoxaparin 40 MG/0.4 ML Syringe SC (05:34)
[2021-02-20] MEDS: Acetaminophen 325 MG Tablet 650 MG PO (06:09)
[2021-02-20 07:05] LABS: Bedside Glucose 115 mg/dL (70-110)
[2021-02-20 08:29] VITALS: BP 140/62; PULSE 74; RESP 16; TEMP 37; O2SAT 95
[2021-02-20] MEDS: Pantoprazole Sodium 20 MG Tablet PO ×2 (09:24→22:34)
[2021-02-20] MEDS: Pioglitazone Hydrochloride 30 MG Tablet PO (09:24)
[2021-02-20] MEDS: metFORMIN HCl 500 MG Tablet PO ×2 (09:24→17:43)
[2021-02-20] MEDS: Ipratropium Bromide 0.06% NASAL SPRAY 2 SPRAY NASAL ×2 (09:24→22:35)
[2021-02-20] MEDS: Carvedilol 6.25 MG Tablet PO ×2 (09:24→22:35)
[2021-02-20] MEDS: Losartan Potassium 100 MG Tablet PO (09:25)
[2021-02-20] MEDS: Empagliflozin 10 MG Tablet PO (09:25)
--- NOTE | 2021-02-20 09:56 | CASEMGMT ---
Social Work IDT met with patient and for Team meeting. staying for therapy training. Pt progressing well and IDT recommending DC 02/22. to confirm after training. IDT recommending outpatient therapy. and pt agreeable and can transport. Requesting [email or web address]. Referral made to [email or web address] PT/ST. No DME needs. Spoke with and agreeable to DC 02/22. Plan: DC home with 02/22, [facility] PT/ST ASTRID ReyesW
[2021-02-20 11:01] LABS: Bedside Glucose 252 mg/dL (70-110)
[2021-02-20] MEDS: Ascorbic Acid 500 MG Tablet 1000 MG PO (12:18)
[2021-02-20] MEDS: Insulin Lispro 100 UNIT/ML INSULN.PEN SC (12:18)
[2021-02-20] MEDS: Ferrous Sulfate 325 MG Tablet PO (12:18)
[2021-02-20 16:05] LABS: Bedside Glucose 146 mg/dL (70-110)
[2021-02-20 19:25] VITALS: BP 119/64; PULSE 78; RESP 18; TEMP 36.6; O2SAT 95
--- NOTE | 2021-02-20 20:38 | DS.PCM_ITS ---
Providers Date of Admission: 02/09/21 Primary Care Physician: Dr. Keith Silverman MD Reason For Visit: CRANIOTOMY Diagnosis Discharge Diagnosis (1) Debility: Status: Acute Code(s): R53.81 - Other malaise (2) Subdural hematoma: Status: Acute Code(s): S06.5X9A - Traumatic subdural hemorrhage with loss of consciousness of unspecified duration, initial encounter (3) History of craniotomy: Status: Acute Code(s): Z98.890 - Other specified postprocedural states (4) Hypertension: Status: Chronic Code(s): I10 - Essential (primary) hypertension (5) Diabetes mellitus: Status: Acute Code(s): E11.9 - Type 2 diabetes mellitus without complications (6) Iron deficiency anemia: Status: Acute Code(s): D50.9 - Iron deficiency anemia, unspecified (7) Insomnia: Status: Acute Code(s): G47.00 - Insomnia, unspecified (8) Gastroesophageal reflux disease: Status: Acute Code(s): K21.9 - Gastro-esophageal reflux disease without esophagitis Medications at Discharge Home Medications insulin detemir U-100 14 unit SUBCUT QHS 02/09/21 melatonin 3 mg PO QHS 02/09/21 pantoprazole [Protonix] 40 mg PO DAILY 02/09/21 pioglitazone [Actos] 30 mg PO DAILY 02/09/21 acetaminophen [Tylenol] 650 mg PO Q4H PRN PRN #0 tab 02/20/21 carvedilol 6.25 mg PO BID 30 Days #60 tab 02/20/21 empagliflozin [Jardiance] 10 mg PO DAILY 30 Days #30 tab 02/20/21 ferrous sulfate [FeroSul] 325 mg PO DAILY@1200 30 Days tab 02/20/21 ipratropium bromide 2 spray NASAL BID 30 Days #15 ml 02/20/21 losartan 100 mg PO DAILY 30 Days #30 tab 02/20/21 metformin 500 mg PO BIDCM 30 Days #60 tab 02/20/21 Hospital Course Operations - (Right Craniotomy.) Procedures None Summary of Care Provided Minutes Spent on Discharge: 35 Hospital Course: 75 year old male with below past medical history hospitalized for subdural hematoma, status post craniotomy, admitted to for 3 hours daily rehabilitation, strengthening, prior to discharge home with . Discharge home with 02/22/2021, [email or web address] PT/ST. Physical Exam Const alert and oriented x3 General Appearance: cooperative HEENT normocephalic Eyes PERRL and EOMs intact bilaterally Neck supple, no JVD and no carotid bruits Resp normal respiratory effort, normal air movement and clear to auscultation bilaterally Cardio regular rate and regular rhythm GI normal to inspection, nondistended, normoactive bowel sounds, non-tender and non-distended Extremity normal capillary refill General Extremity: Negative for edema Skin no rashes or lesions noted General Skin Exam: no breakdown Psych affect normal Appearance: appropriate Weight / BMI Weight Weight: 82.5 kg Body Mass Index (BMI) 27.8 ABG / Lab / Microbiology Data Result Diagrams: 02/18/21 04:40 02/18/21 04:40 Laboratory: Laboratory Results - last 24 hr 02/20/21 06:06: POC Glucose 115 H 02/20/21 10:56: POC Glucose 252 H 02/20/21 16:00: POC Glucose 146 H Microbiology: Microbiology 02/10/21 22:30 Stool Stool Occult Blood (ANASTACIO) - Final D/C Instructions Discharge Diet: No restrictions Discharge Activity: Return to Normal Activity, May Shower and Use Walker Weight Bearing Status: Weight bearing as tolerated Call your doctor if you observe: Fever of 101 or Higher, Inability to urinate, Inability to have a bowel movement, Shortness of breath, Dizziness, Fainting sp ells, Swelling in the ankles, Chest pain and Uncontrolled pain Additional Instructions: Discharge home with 02/22/2021, [email or web address] PT/ST. Please Follow Up With: Keith Silverman Chi, MD When: 1 week. Meaningful Use Info Meaningful Use Diagnoses (Choose all that apply): None applicable Discharge Plan Admission Admit Date/Time: 02/09/21 12:10 Primary Reason for Your Visit: Debility. Attending Provider: Janice Nye Primary Care Provider: Keith Silverman Chi Instructions Additional Instructions / Restrictions: Discharge home with 02/22/2021, [email or web address] PT/ST. Discharge Orders/Prescriptions Prescriptions: New metformin 500 mg Tablet 500 mg PO BIDCM 30 Days Qty: 60 RF: 0 acetaminophen [Tylenol] 325 mg Tablet 650 mg PO Q4H PRN PRN (Reason: Pain Score 1-10) Qty: 0 RF: 0 carvedilol 6.25 mg Tablet 6.25 mg PO BID 30 Days Qty: 60 RF: 0 Jardiance 10 mg Tablet 10 mg PO DAILY 30 Days Qty: 30 RF: 0 ferrous sulfate [FeroSul] 325 mg (65 mg iron) Tablet 325 mg PO DAILY@1200 30 Days RF: 0 ipratropium bromide 42 mcg (0.06 %) Ten[place]a,Non-Aerosol 2 spray NASAL BID 30 Days Qty: 15 RF: 0 losartan 100 mg Tablet 100 mg PO DAILY 30 Days Qty: 30 RF: 0 Continued melatonin 3 mg Tablet 3 mg PO QHS RF: 0 pantoprazole [Protonix] 40 mg Tablet,Delayed Release (Dr/Ec) 40 mg PO DAILY RF: 0 pioglitazone [Actos] 30 mg Tablet 30 mg PO DAILY RF: 0 insulin detemir U-100 100 unit/mL (3 mL) Insulin Pen 14 unit SUBCUT QHS RF: 0 Discontinued metformin 1,000 mg tablet 1,000 mg PO BID RF: 0 losartan-hydrochlorothiazide 100-12.5 mg tablet 1 tab PO DAILY RF: 0 carvedilol [Coreg] 6.25 mg Tablet 6.25 mg PO BID RF: 0 enoxaparin [Lovenox] 40 mg/0.4 mL Syringe 40 mg SUBCUT DAILY@0600 RF: 0 Referrals / Follow Up: Keith Silverman Chi, MD [Primary Care Provider] - Disposition Disposition (needs filled in before D/C Order can be placed): Home, Self Care
[2021-02-20 21:25] LABS: Bedside Glucose 244 mg/dL (70-110)
[2021-02-20] MEDS: MELATONIN 3 MG TABLET PO (22:34)
[2021-02-20] MEDS: Psyllium 1 PACKET PO (22:34)
[2021-02-21] MEDS: Enoxaparin 40 MG/0.4 ML Syringe SC (06:19)
[2021-02-21 06:35] LABS: Bedside Glucose 116 mg/dL (70-110)
[2021-02-21] MEDS: metFORMIN HCl 500 MG Tablet PO ×2 (08:28→16:57)
[2021-02-21] MEDS: Pioglitazone Hydrochloride 30 MG Tablet PO (08:29)
[2021-02-21] MEDS: Carvedilol 6.25 MG Tablet PO ×2 (08:29→21:28)
[2021-02-21] MEDS: Ipratropium Bromide 0.06% NASAL SPRAY 2 SPRAY NASAL ×2 (08:29→21:29)
[2021-02-21] MEDS: Pantoprazole Sodium 20 MG Tablet PO ×2 (08:30→21:27)
[2021-02-21] MEDS: Losartan Potassium 100 MG Tablet PO (08:30)
[2021-02-21] MEDS: Empagliflozin 10 MG Tablet PO (08:30)
[2021-02-21 10:00] VITALS: BP 138/59; PULSE 72; RESP 16; TEMP 36.8; O2SAT 93
[2021-02-21] MEDS: Ascorbic Acid 500 MG Tablet 1000 MG PO (12:25)
[2021-02-21] MEDS: Ferrous Sulfate 325 MG Tablet PO (12:25)
[2021-02-21] MEDS: Insulin Lispro 100 UNIT/ML INSULN.PEN SC ×2 (12:26→16:56)
[2021-02-21 12:45] LABS: Bedside Glucose 186 mg/dL (70-110)
[2021-02-21 16:51] LABS: Bedside Glucose 189 mg/dL (70-110)
[2021-02-21 19:47] VITALS: BP 152/62; PULSE 76; RESP 18; TEMP 37.2; O2SAT 95
[2021-02-21 21:00] LABS: Bedside Glucose 169 mg/dL (70-110)
[2021-02-21] MEDS: MELATONIN 3 MG TABLET PO (21:27)
[2021-02-21] MEDS: Psyllium 1 PACKET PO (21:27)
[2021-02-22] MEDS: Enoxaparin 40 MG/0.4 ML Syringe SC (06:21)
[2021-02-22 06:40] LABS: Bedside Glucose 104 mg/dL (70-110)
[2021-02-22 08:00] VITALS: BP 141/66; PULSE 74; RESP 20; TEMP 37; O2SAT 96
[2021-02-22] MEDS: metFORMIN HCl 500 MG Tablet PO (08:23)
[2021-02-22] MEDS: Losartan Potassium 100 MG Tablet PO (08:23)
[2021-02-22] MEDS: Pioglitazone Hydrochloride 30 MG Tablet PO (08:23)
[2021-02-22] MEDS: Carvedilol 6.25 MG Tablet PO (08:24)
[2021-02-22] MEDS: Pantoprazole Sodium 20 MG Tablet PO (08:24)
[2021-02-22] MEDS: Empagliflozin 10 MG Tablet PO (08:25)
[2021-02-22] MEDS: Ipratropium Bromide 0.06% NASAL SPRAY 2 SPRAY NASAL (08:26)
[2021-02-22 11:00] VITALS: BP 141/66; PULSE 74; RESP 20; TEMP 37; O2SAT 96
--- NOTE | 2021-02-22 11:00 | NURSING ---
aware of discharge instructions and patient dc'd at this time. will make PCP appt and she is aware of the neuro follow up appts that are made.
== END 2021-02-22 11:00 | disposition home or self-care (01) | DRG 950 ==
PROVIDERS: Admitting Provider Internal Medicine; PCP Family Medicine Geriatric Medicine; Visit Provider Internal Medicine
DX: Z48.811 Encounter for surgical aftercare following surgery on the nervous system (principal); S06.5X9D Traumatic subdural hemorrhage with loss of consciousness of unspecified duration, subsequent encounter; E78.5 Hyperlipidemia, unspecified; I12.9 Hypertensive chronic kidney disease with stage 1 through stage 4 chronic kidney disease, or unspecified chronic kidney disease; N18.2 Chronic kidney disease, stage 2 (mild); K21.9 Gastro-esophageal reflux disease without esophagitis; E11.22 Type 2 diabetes mellitus with diabetic chronic kidney disease; E11.319 Type 2 diabetes mellitus with unspecified diabetic retinopathy without macular edema; D50.9 Iron deficiency anemia, unspecified; F03.90 Unspecified dementia, unspecified severity, without behavioral disturbance, psychotic disturbance, mood disturbance, and anxiety; W22.09XD Striking against other stationary object, subsequent encounter; Z87.891 Personal history of nicotine dependence; Z79.899 Other long term (current) drug therapy; Z79.4 Long term (current) use of insulin
CPT/HCPCS: 36415; 80048; 80053; 81001; 82274; 82570; 82728; 82962; 83036; 83540; 83550; 83735; 84100; 84156; 85027; 92507; 92523; 92526; 92610; 97110; 97112; 97116; 97129; 97130; 97162; 97166; 97530; 97535; 97802; 99251; J7030; A4216; G0463

== ENCOUNTER 2021-04-03 11:00 | Outpatient (RCR) | payer MEDICARE, SELFPAY ==
--- NOTE | 2021-02-24 17:47 | HP.SP.AD_ITS ---
History - History Date of Eval: 02/24/21 Medical Diagnosis (from RX): Cranioplasty Previous speech therapy: Yes Results: Pt was seen for 2 weeks at the inpatient rehab unit at [facility] and was d/c on 02/21/21. Per chart review, d/c recommendations from speech therapy included: Recommend family supervision while the patient completes medication management tasks to assess for accuracy w/ assistance to correct errors if present. No driving until medically cleared per neurologist to resume. 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 Encourage use of external memory aids/note taking to improve retention of info. Recommend continued ST as an outpatient following discharge home to address remaining cognitive deficits in the areas of working memory, recall and executive functions. [Pt demonstrating] poor metacognition w/ decreased awareness/insight into deficits resulting in limited progress towards goals for working memory, mental flexibility, attention and executive functions. Tolerating soft and bite sized texture/thin liquid diet w/out overt s/s aspiration and consistently clear lung sounds at time of discharge. Other Relevant Medical History/Diagnoses/Surgery: RADHA ASHFORD is a 75 yo male who [facility] for a speech therapy evaluation following discharge from [facility] s/p cranioplasty. Pt was initially seen at [facility] for 4 months before being transferred to [facility] for 2 weeks of rehab. Pt reporting improvement with his swallowing and cognitive skills. Pt reporting that some of the difficulties he's experiencing are at baseline for him - Pt's Sujey who also attended session - was in agreeance. Pt reporting that sitting down for a period of time sometimes causes him to become dizzy so he needs to lay down. Pt wears glasses but forgot to bring them. Encouraged him to bring to future sessions. 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 General symmetry of the face at rest and while making specific movements was observed to be within functional limits. Off-target groping, uncoordinated movements or signs of weakness were not noted. Appreciated structural and functional integrity of the lips and tongue appeared to be intact. Pt w/upper and lower dentures in place for today's evaluation. - Respiratory Status Respiratory Status: Room Air Subjective Dysphagia - Current Diet Solids Current Diet: Regular - Current Diet Liquids Current Liquids: Thin Objective Dysphagia - Administered by Administered by: Self - Thin Liquids Administred via: Cup, Straw - Regular Oral Holding: No Gagging: No AP Movement: timely Stasis: minimal Patient Report: Pt denying globus sensation. - Results Swallowing Within Normal Limits: Yes Objective Cog/Ling/Com - Test Administered Tipbriija-Yovcqjszvj-Dtwjiluhmrzfk Assessment Administered: Yes Ndboucucq-Ewrypnvkyk-Djoucinlrumsq Assessment: Cognitive ? Linguistic skills were evaluated using patient/family interview, skilled observation and informal evaluation through tasks completed by the patient. - Orientation Orientation: Person, Place, Date, Day, Birthdate, Medical Diagnosis - Identification Body parts/objects: WNL - Answer Yes/No Questions Simple: WNL Complex: WNL - Follows Commands 1 Step: WNL 2 Step: WNL Complex: WNL - Repetition Words: WNL Sentences: WNL - Naming Naming in categories: WFL [place]: WFL - Conversational Tasks Conversational Tasks: Mild Comments: Pt benefiting from significant extended processing time during conversations to process new information or questions prior to responding. - Reading Comprehension Sentences: Mild - Recall Repeating Digits: Can recall up to 5 digits Repeating Words: Can recall up to 4 unrelated words independently, improving to 5 words w/1x repetition of list Repeating Sentences: WFL Percent recall of paragraph information (y/n questions): 70% acc and benefited from mod logical cues to improve acc to 90%. Comments: Pt completes story retell tasks w/29% acc via recalling the first 3 details of the story and the last 2 of 4 details of the end of the story. Pt reporting he could not recall details from the middle of the story. - Medication Reading a medication label: WFL Correctly stating instructions of medications: Mild - Cause & Effect Cause & Effect: WFL - Verbal Sequencing Verbal Sequencing: WFL - Sequencing Paragraphs Sequencing Paragraphs: Severe - Deductive Reasoning Deductive Reasoning: Moderate - Cognitive Linguistic Supervision/Saftey Awareness of deficits: Mild Being left home alone: Mild Managing medications: Mild ERENDIRA - ERENDIRA ERENDIRA Administered: No ERENDIRA: Date Last Administered: Date: 02/21/21 - ERENDIRA Comments Results from 02/21/21 Administration The Assessment of Language-Related Functional Activities (ERENDIRA) consists of ten subtests, each of which assesses a different functional activity that are critical for safe independent functioning in the home environment. Each subtest requires the use of all language modalities as well as cognitive and motor skills. Each subtest also allows observance of multiple cognitive processes, which can help eliminate administering specialized tests in certain areas. Independent Functioning Ratings are identified to determine safe independent functioning in the home environment for two distinct age groups: (1) individuals < 65 years of age, and (2) individuals ages 65 years of age and up. Independent Functioning Rating (IFR) are reported as followed; 1= high probability of independent functioning, 2= indication of need for some level of assistance on the task, requiring further exploration, 3= high probability that this individual is not able to function independently on this task. ----- The results of the ERENDIRA are as followed: Telling Time: 11/15, IFR 1; Counting Money: 08/15 correct, IFR 2; Understanding Medicine Labels: 08/15, IFR 2; Addressing an Envelope: 12/15, IFR 1; Solving Daily Math Problems: 10/15, IFR 1; Using a Calendar: 10/15, IFR 1; Writing a Phone Message: 02/24, IFR 2. Per chart review: Reviewed the use of external memory strategies and the importance of taking notes, repeating back and requesting clarification to assist w/ retention and recall of information. Pt required MAX cues to request clarification and significant difficulty identifying important info to write, especially as length/complexity of info increased. 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 Pt is to follow up w/ OP ST to address remaining deficits in working memory, recall and executive functions. CLQT - CLQT CLQT Administered: No CLQT: Date Last Administered: Date: 02/10/21 - CLQT Comments Results from 02/10/21 Administration Domain Scores: Attention = 153/215 (MILD); Memory = 156/185 (WNL); Executive Functioning = 11/40 (MODERATE); Language = 28/37 (WNL); Visuospatial Skills = 64/105 (WNL); Clock Drawing = 9/13 (MILD); Composite Severity Ratin.4/4.0 (MILD) -------- At the time of evaluation results of CLQT were reviewed w/ patient - patient demonstrated mild cognitive linguistic impairment characterized by inattention w/ reduced processing speed, difficulty w/ initiating tasks/sustaining to completion, and reduced mental flexibility. Discussed plans for continued tx per plan of care targeting the above deficits w/ the goal of returning home at the highest possible level of independent functioning. Pt was tearful while discussing findings, expressing the concern ?what if I never get better?? Provided active listening, support and encouragement. Educated re: CVA and role of PARAPROFESSIONAL AIDE TEACHER in recovery. Education was well received. Given the recentness of the CLQT administration, informal cognitive and language testing was performed today to avoid learner bias. Plan - Plan Plan: Will recommend Pt for weekly outpatient speech therapy 1x/week to address mild-mod cognitive impairment characterized by deficits in short-term and wor yimi memory, executive functioning, and attention. Pt would benefit from training in compensatory strategies for recall, attention, as well as cognitive training to improve cognitive functioning. Without skilled ST services, the Pt is at risk for decreased independence completing daily living tasks. - Recommendations Treatment Warranted: Yes - Frequency Frequency: 1x/Week Duration: 3 Months Visits in this POC: 12 - Prognosis Prognosis: Excellent - Goals that are Established: Determination:: Goals will be added/modified as deemed necessary and appropriate. Therapy will be discontinued when results of re-evaluation indicate therapy is no longer needed or lack of progress has been documented. - Goal #1-5 Goal #1: Pt will complete basic to mod complex planning, organizing, and sequencing tasks with 90% acc independently across 3 measured opportunities. Goal #2: Pt will complete basic to mod complex short-term and working memory tasks with 80% acc independently across 3 measured opportunities. Goal #3: Pt will complete basic to mod complex functional medication management, math, and time tasks with 90% acc independently across 3 measured opportunities. Goal #4: Pt will tolerate least restrictive diet w/no overt s/s of penetration/aspiration w/at least 90% of PO intake independently utilizing safe swallowing strategies. Education - Patient has Indicated that the Following Identified Educational Needs: None The Patient has indicated that they have no educational or learning abilities that may effect their care.: Yes - Patient Instruction Patient Education: Diagnosis, Treatment Plan, Goals Person Taught: Patient, Significant Other Teaching Method: Discussion Response to teaching: Return demonstration, Verbalize understanding
--- NOTE | 2021-02-26 12:35 | HP.PTEVAL_ITS ---
Patient's Visit Information RADHA ASHFORD Jr. is a 75 year old M referred to Physical Therapy by Dr. Keith Silverman MD with a diagnosis of Debility. Date of Evaluation: 02/26/21 Physical Therapist: Radha Wild DPT - Visit Plan Frequency: 1x/Week Duration: 6 Months Plan: 1x a week for 6 weeks for progression of home exercise program - Subjective He had a craniotomy- January 14, 2021- he was in [place] for a month and then in [place] 4th floor rehab for 4 weeks. He was able to return home February 22, 2021. Fully I prior to the brain bleed. His goals are to get back to fully I. He feels that he is getting back to normal- his feels that he is 50% back to all his normal activities. reports its hard for him to ambulate on uneven surfaces, shower without sitting down, and is slower than he use to be. He goes back down to the for an evaluation and do an MRI and hopefully be able to place his skull back together. No falls since he has been home. Does have stairs at home- no problems getting up/down- with a hand rail. Does feel like he is off balance- no worse at night. No pain or other problems to report- not on any medication. Does have FRANCO very infrequently- they are working on his blood sugar- they are going to his PCP this afternoon- and his BP was also high. Precautions: not able to lift more than #5. Normally goes to [facility]- 4- 5x a week. They have not been back since the procedure. They are hoping to have a home exercise program. PMHx/Meds: see list from rehab- no changes - Objective Posture: good throughout session- does wear a helmet due to craniotomy. Gait: no deviation noted- slower pace. HR/TR: able with UE A. SLS: weight shift but unable to SLS. ROM: WFL. Strength: 5/5 throughout LE- Core: fair plus. Flex: HS: mild Gastroc: mild. Stairs: asc/desc 8 recip with 1 HR - Balance/Special Test Scores Functional Gait Assessment Score: 22 % Disability: 26.6700 Lower Extremity Functional Score: 33 TUG Test Time Seconds: 12.2 30 Second Chair Rise Test Seconds: 15 - Goals Goal 1:: Patient will be I with HEP and progression Goal Time Frame: 4-6 Weeks - Rehabilitation Potential Physical Therapy Diagnosis: Patient presents with hypomobility- he has mild decrease in strength and muscular endurance leading to decreased participation in ADL's. Rehabilitation Potential: Good - Anticipated Interventions Therapeutic Exercise to Include: Endurance training, Balance training, Body mechanics, Postural training, Flexibilty training, Gait and locomotor training, Dynamic Lumbar Stabilization, Scapular Strength/Stabilization For the Purpose of:: To improve muscle performance and motor function Thank you for the opportunity to evaluate your patient. For Medicare and Medicare HMO plans, please review the plan of care and approve it. It will need to be FAXED BACK to us at [phone] for Medicare purposes. For Medicare only, by signing this I certify the plan of care. Please let me know if there are questions or concerns regarding this plan of care. Physician Signature: Date:
== END 2021-04-03 19:00 | disposition home or self-care (01) ==
LOC: SP 11:00
PROVIDERS: PCP Family Medicine Geriatric Medicine; Referring Provider Family Medicine Geriatric Medicine; Visit Provider Family Medicine Geriatric Medicine
DX: Z48.89 Encounter for other specified surgical aftercare (principal); S06.5X9D Traumatic subdural hemorrhage with loss of consciousness of unspecified duration, subsequent encounter; M95.2 Other acquired deformity of head; X58.XXXD Exposure to other specified factors, subsequent encounter; G31.84 Mild cognitive impairment of uncertain or unknown etiology
CPT/HCPCS: 92507; 92523; 92610; 97162

== ENCOUNTER 2021-04-03 12:14 | Outpatient (CLI) | payer MEDICARE, SELFPAY | END 2021-04-03 23:59 | disposition short-term general hospital (02) | LOC: PSN 12:15 | PROVIDERS: PCP Family Medicine Geriatric Medicine; Referring Provider Family Medicine Geriatric Medicine; Visit Provider Family Medicine Geriatric Medicine | DX: R68.83 Chills (without fever) (principal) | CPT/HCPCS: 87635; C9803; U0003; U0005 ==

== ENCOUNTER 2021-04-07 08:49 | Outpatient (CLI) | payer MEDICARE, SELFPAY ==
[2021-04-07 10:19] LABS: Absolute Neutrophil Count 3.2 X10^3/uL (2.0-7.7); Basophil# 0.06 X10^3/uL; Basophil% 1.1 % (0-1); Eosinophil# 0.26 X10^3/uL; Eosinophils% 4.9 % (0-5); Hematocrit 36.7 % (40-54); Hemoglobin 11.1 g/dL (13.0-16.5); Lymphocyte % 24.7 % (19-41); Mean Corp Hgb Conc 30.2 g/dL (32-36); Mean Corpuscular Hgb 23.7 pg (27.0-32.0); Mean Corpuscular Volume 78.3 fL (80-94); Mean Platelet Vol. 11.3 fl (6.2-12.0); Monocyte# 0.48 X10^3/uL; Monocyte% 9.1 % (0-10); NRBC Flagged by Analyzer 0 % (0-5); Neutrophil # 3.15 X10^3/uL (2.7-7.7); Neutrophil % 59.8 % (47-70); Platelet Count 264 K/mm3 (150-450); RBC Distribution Width CV 15.6 % (11.6-14.6); Red Blood Count 4.69 M/mm3 (4.6-6.2); White Blood Count 5.3 K/mm3 (4.4-11.0)
[2021-04-07 10:50] LABS: Vitamin D,25 Hydroxy 32.5 ng/mL
[2021-04-07 11:03] LABS: ALB/GLOB Ratio 0.8 RATIO (0.9-2.4); AST(SGOT) 6 U/L (15-37); Alanine Aminotransfer ALT/SGPT 15 U/L (16-61); Albumin, Serum 3.1 g/dL (3.2-5.0); Alkaline Phosphatase 97 U/L (45-117); Anion Gap 5 (5-15); BUN 16 mg/dL (7-18); BUN/Creat Ratio 15.2 RATIO (10-20); Calcium,Total 8.7 mg/dL (8.5-10.1); Chloride 103 mmol/L (98-107); Creatinine, Serum 1.05 mg/dL (0.70-1.30); EST Glomerular Filtration Rate 73 mL/min (>60); Est Glom Filt Rate - Afr Amer 88 mL/min (>60); Globulin 3.7 g/dL (2.2-4.2); Glucose 276 mg/dL (74-106); Potassium 4.3 mmol/L (3.5-5.1); Protein, Total 6.8 g/dL (6.4-8.2); Sodium Level 135 mmol/L (136-145); Thyroid Stim Hormone (TSH) 1.44 uIU/mL (0.358-3.74)
== END 2021-04-07 23:59 | disposition short-term general hospital (02) ==
LOC: POLAB3 08:50
PROVIDERS: PCP Family Medicine Geriatric Medicine; Visit Provider Family Medicine Geriatric Medicine
DX: E11.9 Type 2 diabetes mellitus without complications (principal); E55.9 Vitamin D deficiency, unspecified; I10 Essential (primary) hypertension
CPT/HCPCS: 36415; 80053; 82306; 84443; 85025

== ENCOUNTER → 2021-07-14 | Outpatient (CLI) | payer MEDICARE, SELFPAY ==
[2021-07-14 12:25] LABS: Absolute Lymphocyte Count 1.31 X10^3/uL (0.83-4.51); Absolute Neutrophil Count 4.4 X10^3/uL (2.0-7.7); Basophil# 0.06 X10^3/uL; Basophil% 0.9 % (0-1); Eosinophil# 0.23 X10^3/uL; Eosinophils% 3.5 % (0-5); Hematocrit 39.1 % (40-54); Hemoglobin 12.2 g/dL (13.0-16.5); Lymphocyte # 1.31 X10^3/ul (0.83-4.51); Lymphocyte % 19.7 % (19-41); Mean Corp Hgb Conc 31.2 g/dL (32-36); Mean Corpuscular Hgb 24.4 pg (27.0-32.0); Mean Corpuscular Volume 78.4 fL (80-94); Mean Platelet Vol. 11.1 fl (6.2-12.0); Monocyte# 0.64 X10^3/uL; Monocyte% 9.6 % (0-10); NRBC Flagged by Analyzer 0 % (0-5); Neutrophil # 4.37 X10^3/uL (2.7-7.7); Neutrophil % 65.5 % (47-70); Platelet Count 256 K/mm3 (150-450); RBC Distribution Width CV 16.4 % (11.6-14.6); RBC Distribution Width SD 46.6 fl (35.1-43.9); Red Blood Count 4.99 M/mm3 (4.6-6.2); White Blood Count 6.7 K/mm3 (4.4-11.0)
[2021-07-14 12:38] LABS: Vitamin D,25 Hydroxy 30.4 ng/mL
[2021-07-14 12:44] LABS: ALB/GLOB Ratio 0.9 RATIO (0.9-2.4); AST(SGOT) 10 U/L (15-37); Alanine Aminotransfer ALT/SGPT 20 U/L (16-61); Albumin, Serum 3.5 g/dL (3.2-5.0); Alkaline Phosphatase 109 U/L (45-117); Anion Gap 7 (5-15); BUN 19 mg/dL (7-18); BUN/Creat Ratio 17.4 RATIO (10-20); Chloride 103 mmol/L (98-107); Creatinine, Serum 1.09 mg/dL (0.70-1.30); EST Glomerular Filtration Rate 70 mL/min (>60); Est Glom Filt Rate - Afr Amer 84 mL/min (>60); Globulin 3.9 g/dL (2.2-4.2); Glucose 225 mg/dL (74-106); Potassium 4.5 mmol/L (3.5-5.1); Protein, Total 7.4 g/dL (6.4-8.2); Sodium Level 138 mmol/L (136-145); Thyroid Stim Hormone (TSH) 1.67 uIU/mL (0.358-3.74)
== END | disposition home or self-care (01) ==
LOC: POLAB3 09:15
PROVIDERS: PCP Family Medicine Geriatric Medicine; Visit Provider Family Medicine Geriatric Medicine
DX: E11.9 Type 2 diabetes mellitus without complications (principal); E55.9 Vitamin D deficiency, unspecified; I10 Essential (primary) hypertension
CPT/HCPCS: 36415; 80053; 82306; 84443; 85025

== ENCOUNTER → 2022-01-21 | Outpatient (CLI) | payer MEDICARE, SELFPAY ==
[2022-01-21 12:20] LABS: Absolute Lymphocyte Count 1.91 X10^3/uL (0.83-4.51); Absolute Neutrophil Count 3.7 X10^3/uL (2.0-7.7); Basophil# 0.07 X10^3/uL; Basophil% 1.1 % (0-1); Eosinophil# 0.22 X10^3/uL; Eosinophils% 3.4 % (0-5); Hematocrit 41.1 % (40-54); Hemoglobin 12.9 g/dL (13.0-16.5); Lymphocyte # 1.91 X10^3/ul (0.83-4.51); Lymphocyte % 29.1 % (19-41); Mean Corp Hgb Conc 31.4 g/dL (32-36); Mean Corpuscular Hgb 25.4 pg (27.0-32.0); Mean Corpuscular Volume 80.9 fL (80-94); Monocyte# 0.61 X10^3/uL; Monocyte% 9.3 % (0-10); NRBC Flagged by Analyzer 0.3 % (0-5); Neutrophil # 3.69 X10^3/uL (2.7-7.7); Neutrophil % 56.2 % (47-70); Platelet Count 308 K/mm3 (150-450); RBC Distribution Width CV 14.3 % (11.6-14.6); RBC Distribution Width SD 41.7 fl (35.1-43.9); Red Blood Count 5.08 M/mm3 (4.6-6.2); White Blood Count 6.6 K/mm3 (4.4-11.0)
[2022-01-21 12:39] LABS: Vitamin D,25 Hydroxy 34.1 ng/mL
[2022-01-21 12:49] LABS: ALB/GLOB Ratio 0.9 RATIO (0.9-2.4); AST(SGOT) 15 U/L (15-37); Alanine Aminotransfer ALT/SGPT 23 U/L (16-61); Albumin, Serum 3.6 g/dL (3.2-5.0); Alkaline Phosphatase 96 U/L (45-117); Anion Gap 7 (5-15); BUN 16 mg/dL (7-18); BUN/Creat Ratio 13.9 RATIO (10-20); Calcium,Total 9.1 mg/dL (8.5-10.1); Chloride 106 mmol/L (98-107); Creatinine, Serum 1.15 mg/dL (0.70-1.30); EST Glomerular Filtration Rate 65 mL/min (>60); Est Glom Filt Rate - Afr Amer 79 mL/min (>60); Globulin 3.8 g/dL (2.2-4.2); Glucose 105 mg/dL (74-106); Potassium 3.9 mmol/L (3.5-5.1); Protein, Total 7.4 g/dL (6.4-8.2); Sodium Level 139 mmol/L (136-145); Thyroid Stim Hormone (TSH) 1.71 uIU/mL (0.358-3.74)
== END | disposition home or self-care (01) ==
LOC: POLAB3 09:10
PROVIDERS: PCP Family Medicine Geriatric Medicine; Visit Provider Family Medicine Geriatric Medicine
DX: E55.9 Vitamin D deficiency, unspecified (principal); E11.65 Type 2 diabetes mellitus with hyperglycemia; I10 Essential (primary) hypertension
CPT/HCPCS: 36415; 80053; 82306; 84443; 85025

== ENCOUNTER 2022-03-16 16:00 | Emergency (ER) | payer MEDICARE, SELFPAY ==
[2022-03-16 16:01] VITALS: BP 163/65; PULSE 71; RESP 18; TEMP 36.1; O2SAT 97; BMI 28.1
--- NOTE | 2022-03-16 16:11 | EKG12_ITS ---
Test Reason : CP Blood Pressure : / mmHG Vent. Rate : 071 BPM Atrial Rate : 071 BPM P-R Int : 176 ms QRS Dur : 102 ms QT Int : 400 ms P-R-T Axes : 038 024 040 degrees QTc Int : 434 ms Normal sinus rhythm Normal ECG Confirmed by OSMANY PIMENTEL, HEATH ([id number]), website/blog editor CLARA HANNAH ([id number]) on 03/18/2022 10:38:35 AM Referred By: ISABEL/SACHIN Confirmed By:HEATH CERON MD
[2022-03-16 16:53] LABS: Absolute Lymphocyte Count 1.63 X10^3/uL (0.83-4.51); Absolute Neutrophil Count 3.9 X10^3/uL (2.0-7.7); Basophil# 0.05 X10^3/uL; Basophil% 0.8 % (0-1); Eosinophil# 0.25 X10^3/uL; Eosinophils% 3.9 % (0-5); Hematocrit 42.6 % (40-54); Hemoglobin 13.1 g/dL (13.0-16.5); Lymphocyte # 1.63 X10^3/ul (0.83-4.51); Lymphocyte % 25.2 % (19-41); Mean Corp Hgb Conc 30.8 g/dL (32-36); Mean Corpuscular Hgb 25.1 pg (27.0-32.0); Mean Corpuscular Volume 81.8 fL (80-94); Mean Platelet Vol. 10.5 fl (6.2-12.0); Monocyte# 0.59 X10^3/uL; Monocyte% 9.1 % (0-10); NRBC Flagged by Analyzer 0 % (0-5); Neutrophil # 3.93 X10^3/uL (2.7-7.7); Neutrophil % 60.5 % (47-70); Platelet Count 247 K/mm3 (150-450); RBC Distribution Width CV 14.4 % (11.6-14.6); RBC Distribution Width SD 42.5 fl (35.1-43.9); Red Blood Count 5.21 M/mm3 (4.6-6.2); White Blood Count 6.5 K/mm3 (4.4-11.0)
[2022-03-16 17:10] LABS: Anion Gap 6 (5-15); BUN 15 mg/dL (7-18); BUN/Creat Ratio 12.7 RATIO (10-20); Calcium,Total 9.2 mg/dL (8.5-10.1); Chloride 106 mmol/L (98-107); Creatinine, Serum 1.18 mg/dL (0.70-1.30); EST Glomerular Filtration Rate 63 mL/min (>60); Est Glom Filt Rate - Afr Amer 77 mL/min (>60); Estimated Creatinine Clearance 53.27 ml/min; Glucose 171 mg/dL (74-106); Potassium 3.8 mmol/L (3.5-5.1); Sodium Level 140 mmol/L (136-145); Troponin-I HS 11 pg/mL (3.0-78.0)
--- NOTE | 2022-03-16 17:25 | RAD_ITS ---
STUDY: X-RAY CHEST REASON FOR EXAM: Male, 76 years old. Chest pain beginning 45 minutes prior to arrival.. TECHNIQUE: Single AP portable view of the chest. COMPARISON: January 14, 2021 FINDINGS: The lungs are well expanded. There is stable interstitial coarsening and bilateral granulomata unchanged from the prior study. There is no demonstrated pleural abnormality. Normal size heart. Normal mediastinum and jose j. Normal visualized pulmonary arteries. There is atherosclerotic calcification of the aortic arch with tortuosity. There are diffuse degenerative changes of the visualized thoracic spine. There is degenerative osteoarthritis of the bilateral shoulders. There is no demonstrated abnormality of the visualized soft tissue structures of the upper abdomen. RAD/Chest 1 View (Portable) IMPRESSION: No acute cardiopulmonary disease. Electronically Signed: Tray Gómez DO at 17:43 EST ,
--- NOTE | 2022-03-16 18:33 | ED.VIS.CHEST ---
HPI <IESHA Bhatt - Last Filed: 03/16/22 21:14> History of Present Illness Chief Complaint: Chest Pain Narrative Narrative: Patient presents today after having an episode of midsternal chest pain that radiated to his back and lasted for around an hour earlier this afternoon. He states he was standing and talking to a friend when the pain came on. He states the pain was a burning pain and sharp. He denies a cardiac history and denies a history of blood clots. Patient has a past medical history of hypertension, hyperlipidemia, GERD, and type 2 diabetes. Patient denies recent illness, shortness of breath, abdominal pain, nausea, and vomiting. [facility] <IESHA Bhatt - Last Filed: 03/16/22 21:14> [facility] Medical History (Updated 03/16/22 @ 19:25 by IESHA Bhatt) Chronic diarrhea Dementia Diabetes mellitus type 2 in nonobese Former smoker GERD (gastroesophageal reflux disease) HLD (hyperlipidemia) HTN (hypertension) Memory problem Prostate cancer Traumatic subdural hematoma Home Medications insulin detemir U-100 100 unit/mL (3 mL) subcutaneous pen 14 unit subcut QHS dm 02/09/21 [History Last Taken Unknown] melatonin 3 mg tablet 3 mg PO QHS sleep 02/09/21 [History Last Taken Unknown] pantoprazole 40 mg tablet,delayed release (Protonix) 40 mg PO DAILY gerd 02/09/21 [History Last Taken Unknown] pioglitazone 30 mg tablet (Actos) 30 mg PO DAILY dm 02/09/21 [History Last Taken Unknown] acetaminophen 325 mg tablet (Tylenol) 650 mg PO Q4H PRN PRN Pain Score 1-10 #0 tabs 02/20/21 [Rx Last Taken Unknown] carvedilol 6.25 mg tablet 6.25 mg PO BID 30 days #60 tabs 02/20/21 [Rx Last Taken Unknown] empagliflozin 10 mg tablet (Jardiance) 10 mg PO DAILY 30 days #30 tabs 02/20/21 [Rx Last Taken Unknown] ferrous sulfate 325 mg (65 mg iron) tablet (FeroSul) 325 mg PO DAILY@1200 30 days 02/20/21 [Rx Last Taken Unknown] ipratropium bromide 42 mcg (0.06 %) nasal spray 2 spray NASAL BID 30 days #15 mL 02/20/21 [Rx Last Taken Unknown] losartan 100 mg tablet 100 mg PO DAILY 30 days #30 tabs 02/20/21 [Rx Last Taken Unknown] metformin 500 mg tablet 500 mg PO BIDCM 30 days #60 tabs 02/20/21 [Rx Last Taken Unknown] Allergy/AdvReac Type Severity Reaction Status Date / Time No Known Allergies Allergy Unverified 03/16/22 16:01 Family History (Updated 02/09/21 @ 13:15 by Lisset Arevalo) Mother Heart disease Father CVA (cerebral vascular accident) Surgical History H/O vein stripping History of repair of rotator cuff Status post craniectomy Social History (Updated 02/10/21 @ 17:[address] 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 leisure activities: exercise Smoking Status: Former smoker how long ago did patient quit smoking: about 40 years ago details: occasional substance use type: does not use what type of physical activity do you participate in: additional details: He exercises 3 times a week and the [employer] ROS <IESHA Bhatt - Last Filed: 03/16/22 21:14> ROS ED Constitutional Constitutional ED: Denies chills, fever(s) or sweats Eyes Eyes: Denies blurry vision or change in vision ENT ENT ED: Denies rhinorrhea or sore throat Cardiovascular Cardiovascular: Reports chest pain; Denies palpitations or racing heartbeat Respiratory/Chest Respiratory/Chest: Denies cough, dyspnea or dyspnea on exertion Gastrointestinal Gastrointestinal: Denies abdominal pain, nausea or vomiting Genitourinary Genitourinary ED: Denies dysuria, hematuria or urinary frequency Musculoskeletal Musculoskeletal: Reports back pain; Denies arthralgias or myalgias Integumentary Denies abscess, Abrasions or rash Neurologic Neurologic: Denies headache(s), paresthesias or weakness Psychiatric Psychiatric: Denies anxiety, depression or suicidal ideation EXAM <IESHA Bhatt - Last Filed: 03/16/22 21:14> Physical Exam Const Vital Signs: 03/16/22 16:01 03/16/22 18:36 03/16/22 18:36 Temperature 96.9 F L Temperature Source Temporal Pulse Rate 71 Respiratory Rate 18 Respiratory Effort Normal Non-Labored Blood Pressure 163/65 H Blood Pressure Mean 97 Pulse Ox 97 Oxygen Delivery Method Room Air Room Air 03/16/22 19:44 Temperature Temperature Source Pulse Rate 67 Respiratory Rate 14 Respiratory Effort Blood Pressure 138/77 H Blood Pressure Mean Pulse Ox 95 Oxygen Delivery Method Positive well nourished and well developed General Appearance ED: well developed and NAD HEENT Reports moist mucous membranes normocephalic and atraumatic Eyes PERRL and EOMs intact bilaterally Neck no lymphadenopathy and supple Chest Wall inspection of chest normal and palpation of chest normal Resp normal respiratory effort and clear to auscultation bilaterally Cardio regular rate, regular rhythm and no murmurs GI soft to palpation, non-tender, non-distended and no masses Extremity normal to inspection Neuro oriented x3, CN's II-XII intact bilaterally, no sensory deficits noted and gait normal Sensorium / Orientation: awake and alert Motor Exam: strength 5/5 throughout Psych mental status grossly normal Skin no rashes or lesions noted and no wounds <Dr. Vitaliy Smith DO - Last Filed: 03/16/22 23:40> Physical Exam Const Vital Signs: 03/16/22 16:01 03/16/22 18:36 03/16/22 18:36 Temperature 96.9 F L Temperature Source Temporal Pulse Rate 71 Respiratory Rate 18 Respiratory Effort Normal Non-Labored Blood Pressure 163/65 H Blood Pressure Mean 97 Pulse Ox 97 Oxygen Delivery Method Room Air Room Air 03/16/22 19:44 Temperature Temperature Source Pulse Rate 67 Respiratory Rate 14 Respiratory Effort Blood Pressure 138/77 H Blood Pressure Mean Pulse Ox 95 Oxygen Delivery Method [facility] <IESHA Bhatt - Last Filed: 03/16/22 21:14> [facility] Narrative Medical decision making narrative: Patient presents today after an episode of midsternal chest pain that radiated to his back and lasted around an hour earlier this afternoon. Delta troponin negative. Lab work unremarkable. Chest x-ray shows no acute findings. EKG shows rhythm with no ST elevation. He is in no acute distress and is nontoxic-appearing. Vital signs are stable. He is not having any chest pain here in the ED. Patient states he has not had a cardiac stress test in a few years so I have encouraged him to follow-up with his PCP on getting one of those scheduled. I am comfortable patient discharging home in stable condition and he is comfortable with plan. Differentials considered: 1. MA 2. Aortic dissection 3. PE 4. Gastritis 5. Unstable angina 6. Stable angina Lab Data Attestation: I reviewed the patient's lab results. Lab results narrative: CBC unremarkable, BMP unremarkable, glucose 171, troponin 11 Labs: Laboratory Results - last 24 hr 03/16/22 03/16/22 03/16/22 16:45 16:45 18:43 WBC 6.5 RBC 5.21 Hgb 13.1 Hct 42.6 MCV 81.8 MCH 25.1 L MCHC 30.8 L RDW Std Deviation 42.5 RDW Coeff of [place] 14.4 Plt Count 247 MPV 10.5 Immature Gran % (Auto) 0.500 Neut % (Auto) 60.5 Lymph % (Auto) 25.2 [place] % (Auto) 9.1 Eos % (Auto) 3.9 Baso % (Auto) 0.8 Absolute Neuts (auto) 3.9 Absolute Lymphs (auto) 1.63 Nucleated RBC % 0 Sodium 140 Potassium 3.8 Chloride 106 Carbon Dioxide 28.0 Anion Gap 6 BUN 15 Creatinine 1.18 Estim Creat Clear Calc 53.27 Est GFR (MDRD) Af Amer 77 Est GFR (MDRD) Non-Af 63 BUN/Creatinine Ratio 12.7 Glucose 171 H Calcium 9.2 Troponin I High Sens 11 12 Radiography Diagnostic Testing: Clinical Impression(s) from Imaging Studies Chest X-Ray 03/16/22 17:25 IMPRESSION: No acute cardiopulmonary disease. Electronically Signed: Tray Gómez DO at 17:43 EST Reading Location ID and State: [address] [place] [address] Tel [phone], Service support , Chest x-ray also reviewed and interpreted by attending ED physician EKG Initial EKG: Attestation: I personally reviewed and interpreted this EKG as follows: Interpretation: Sinus Rhythm Comments: 71 bpm, normal sinus rhythm, no ST elevation, no signs of cardiac ischemia. This EKG has also been reviewed and interpreted by attending ED physician. <Dr. Vitaliy Smith DO - Last Filed: 03/16/22 23:40> [facility] Narrative Medical decision making narrative: Patient presents today after an episode of midsternal chest pain that radiated to his back and lasted around an hour earlier this afternoon. Delta troponin negative. Lab work unremarkable. Chest x-ray shows no acute findings. EKG shows rhythm with no ST elevation. He is in no acute distress and is nontoxic-appearing. Vital signs are stable. He is not having any chest pain here in the ED. Patient states he has not had a cardiac stress test in a few years so I have encouraged him to follow-up with his PCP on getting one of those scheduled. I am comfortable patient discharging home in stable condition and he is comfortable with plan. Differentials considered: 1. MA 2. Aortic dissection 3. PE 4. Gastritis 5. Unstable angina 6. Stable angina Attending note: Patient seen and evaluated with flat surfacer. I perform my own [id number] evaluation. I agree with the plan of work-up. Transient chest pains lasted an hour at rest prior to arrival. No history of MA. No recent travel or surgeries. No history of PE or DVT. Exam alert nontoxic patient no acute distress. EKG sinus no acute findings. Chest x-ray interpreted by myself and read by radiology shows no process. Laboratory studies reviewed by myself self normal with negative troponin x2 glucose was 171 normal gap. He has his prediabetes. No cough or concerns for pneumonia. No sharp pains tearing to the concerns for dissection. No clinical risk factors for PE. Pulse ox stable. Discussed with patient discharged outpatient follow-up with return precautions. All questions were answered. Lab Data Labs: Laboratory Results - last 24 hr 03/16/22 03/16/22 03/16/22 16:45 16:45 18:43 WBC 6.5 RBC 5.21 Hgb 13.1 Hct 42.6 MCV 81.8 MCH 25.1 L MCHC 30.8 L RDW Std Deviation 42.5 RDW Coeff of [place] 14.4 Plt Count 247 MPV 10.5 Immature Gran % (Auto) 0.500 Neut % (Auto) 60.5 Lymph % (Auto) 25.2 [place] % (Auto) 9.1 Eos % (Auto) 3.9 Baso % (Auto) 0.8 Absolute Neuts (auto) 3.9 Absolute Lymphs (auto) 1.63 Nucleated RBC % 0 Sodium 140 Potassium 3.8 Chloride 106 Carbon Dioxide 28.0 Anion Gap 6 BUN 15 Creatinine 1.18 Estim Creat Clear Calc 53.27 Est GFR (MDRD) Af Amer 77 Est GFR (MDRD) Non-Af 63 BUN/Creatinine Ratio 12.7 Glucose 171 H Calcium 9.2 Troponin I High Sens 11 12 Radiography Diagnostic Testing: Clinical Impression(s) from Imaging Studies Chest X-Ray 03/16/22 17:25 IMPRESSION: No acute cardiopulmonary disease. Electronically Signed: Tray RicoDO at 17:43 EST Reading Location ID and State: [address] [place] [address] Tel [phone], Service support , Discharge Plan Triage Chief Complaint: Chest Pain ED Midlevel Provider: Natalie Urbina ED Provider: Vitaliy Smith Dx/Rx/DC Orders Clinical Impression: Chest pain Instructions: ED Chest Pain, Uncertain Cause Prescriptions: No Action melatonin 3 mg Tablet 3 mg PO QHS pantoprazole [Protonix] 40 mg Tablet,Delayed Release (Dr/Ec) 40 mg PO DAILY pioglitazone [Actos] 30 mg Tablet 30 mg PO DAILY insulin detemir U-100 100 unit/mL (3 mL) Insulin Pen 14 unit SUBCUT QHS metformin 500 mg Tablet 500 mg PO BIDCM 30 Days Qty: 60 0RF acetaminophen [Tylenol] 325 mg Tablet 650 mg PO Q4H PRN PRN (Reason: Pain Score 1-10) Qty: 0 0RF carvedilol 6.25 mg Tablet 6.25 mg PO BID 30 Days Qty: 60 0RF Jardiance 10 mg Tablet 10 mg PO DAILY 30 Days Qty: 30 0RF ferrous sulfate [FeroSul] 325 mg (65 mg iron) Tablet 325 mg PO DAILY@1200 30 Days 0RF ipratropium bromide 42 mcg (0.06 %) [place],Non-Aerosol 2 spray NASAL BID 30 Days Qty: 15 0RF losartan 100 mg Tablet 100 mg PO DAILY 30 Days Qty: 30 0RF Primary Care Provider: Keith Silverman Chi Referrals: Keith Silverman Chi, MD [Primary Care Provider] - 3-5 Days Activity Restrictions/Additional Instructions: Please follow-up with PCP. You may need to have a cardiac stress test performed. Please return if symptoms occur again. Disposition Disposition: Home, Self Care Discharge Date/Time: 03/16/22 19:45
[2022-03-16 19:11] LABS: Troponin-I HS 12 pg/mL (3.0-78.0)
[2022-03-16 19:44] VITALS: BP 138/77; PULSE 67; RESP 14; O2SAT 95
== END 2022-03-16 19:45 | disposition home or self-care (01) ==
PROVIDERS: Physician Assistant; Emergency Provider Emergency Medicine; PCP Family Medicine Geriatric Medicine; Visit Provider Emergency Medicine
DX: R07.9 Chest pain, unspecified (principal); Z87.891 Personal history of nicotine dependence
CPT/HCPCS: 71045; 80048; 84484; 85025; 93005; 99284; A4216

== ENCOUNTER → 2022-04-09 | Outpatient (CLI) | payer MEDICARE, SELFPAY ==
[2022-04-09 12:50] LABS: Absolute Lymphocyte Count 1.61 X10^3/uL (0.83-4.51); Absolute Neutrophil Count 3.2 X10^3/uL (2.0-7.7); Basophil# 0.06 X10^3/uL; Basophil% 1.1 % (0-1); Eosinophil# 0.17 X10^3/uL; Hemoglobin 13.2 g/dL (13.0-16.5); Lymphocyte # 1.61 X10^3/ul (0.83-4.51); Lymphocyte % 28.7 % (19-41); Mean Corp Hgb Conc 30.7 g/dL (32-36); Mean Corpuscular Hgb 24.8 pg (27.0-32.0); Mean Corpuscular Volume 80.8 fL (80-94); Mean Platelet Vol. 11.6 fl (6.2-12.0); Monocyte# 0.58 X10^3/uL; Monocyte% 10.3 % (0-10); NRBC Flagged by Analyzer 0 % (0-5); Neutrophil # 3.15 X10^3/uL (2.7-7.7); Neutrophil % 56.2 % (47-70); Platelet Count 246 K/mm3 (150-450); RBC Distribution Width CV 14.5 % (11.6-14.6); RBC Distribution Width SD 41.9 fl (35.1-43.9); Red Blood Count 5.32 M/mm3 (4.6-6.2); White Blood Count 5.6 K/mm3 (4.4-11.0)
[2022-04-09 13:49] LABS: AST(SGOT) 14 U/L (15-37); Alanine Aminotransfer ALT/SGPT 19 U/L (16-61); Albumin, Serum 3.7 g/dL (3.2-5.0); Alkaline Phosphatase 88 U/L (45-117); Anion Gap 8 (5-15); BUN 20 mg/dL (7-18); Calcium,Total 9.1 mg/dL (8.5-10.1); Chloride 103 mmol/L (98-107); Creatinine, Serum 1.25 mg/dL (0.70-1.30); EST Glomerular Filtration Rate 59 mL/min (>60); Est Glom Filt Rate - Afr Amer 72 mL/min (>60); Globulin 3.8 g/dL (2.2-4.2); Glucose 197 mg/dL (74-106); Potassium 4.4 mmol/L (3.5-5.1); Protein, Total 7.5 g/dL (6.4-8.2); Sodium Level 138 mmol/L (136-145); Thyroid Stim Hormone (TSH) 1.83 uIU/mL (0.358-3.74)
[2022-04-09 14:29] LABS: Vitamin D,25 Hydroxy 32.9 ng/mL
== END | disposition home or self-care (01) ==
LOC: POLAB3 09:36
PROVIDERS: PCP Family Medicine Geriatric Medicine; Visit Provider Family Medicine Geriatric Medicine
DX: E55.9 Vitamin D deficiency, unspecified (principal); E11.65 Type 2 diabetes mellitus with hyperglycemia; I10 Essential (primary) hypertension
CPT/HCPCS: 36415; 80053; 82306; 84443; 85025

== ENCOUNTER → 2022-04-15 | Outpatient (CLI) | payer MEDICARE, SELFPAY ==
--- NOTE | 2022-04-15 16:24 | STRESSREP ---
Stress Test Report Exercise myocardial perfusion stress test. 77-year-old man with a history of shortness of breath. Stress protocol: Resting EKG demonstrates sinus rhythm with a rate of 65 bpm resting blood pressure is 138/88 mmHg. The patient exercised according to the regular [place] protocol for a total duration of 5 minutes attaining a maximum heart rate of 131 bpm which was 92 % of maximum predicted heart rate; the maximum workload was 7 metabolic equivalents. At rest there were no ST or T wave changes noted to suggest ischemia and at peak exercise upsloping ST changes only were noted which did not meet the criteria for ischemia. No clinical angina was noted the test was terminated due to the target heart rate being achieved/fatigue. The peak blood pressure was [170/80] mmHg. Rate-pressure product was [22,200]. Myocardial perfusion protocol. 14.5 mCi of technetium 99m sestamibi was injected at rest. The patient exercised according to regular [place] protocol for total duration of 5 minutes and at peak exercise 44.4 mCi of technetium 99m sestamibi was injected stress images were obtained stress and rest images were reconstructed in comparing the short axis vertical long and horizontal long axis. Gated images were also obtained. Perfusion SPECT analysis: Review of the stress images demonstrate normal uptake of tracer noted in all areas of the myocardium. The resting images similarly demonstrate normal uptake of tracer noted in all areas of the myocardium. No areas of reversibility are noted to suggest ischemia no previous infarct was noted. Gated SPECT analysis: The gated ejection fraction is 68%. Conclusion: Normal exercise myocardial perfusion stress test at a moderate workload Preserved ejection fraction.
== END | disposition home or self-care (01) ==
LOC: CVS 06:10
PROVIDERS: PCP Family Medicine Geriatric Medicine; Visit Provider Family Medicine Geriatric Medicine
DX: R07.9 Chest pain, unspecified (principal)
CPT/HCPCS: 78452; 93017; A9500; A4216

== ENCOUNTER → 2022-09-30 | Outpatient (CLI) | payer MEDICARE, SELFPAY ==
--- NOTE | 2022-09-30 12:35 | RAD_ITS ---
STUDY: X-RAY CHEST REASON FOR EXAM: Male, 77 years old. Cough and shortness of breath. TECHNIQUE: PA and lateral views of the chest. COMPARISON: Comparison is made with prior study dated March 16, 2022. FINDINGS: Hyperinflation. As compared to prior study, there is been a mild degree of increased linear markings at the lung bases slightly worse on the left side suggestive of possible atelectasis. Stable calcified granulomas in the left midlung. There is no demonstrated pleural abnormality. Normal size heart. Normal mediastinum and jose j. Normal visualized pulmonary arteries. There is atherosclerotic calcification of the aortic arch with tortuosity. There are diffuse degenerative changes of the visualized thoracic spine. Normal visualized ribs, clavicles, and shoulders. There is no demonstrated abnormality of the visualized soft tissue structures of the upper abdomen. RAD/Chest PA and Lateral IMPRESSION: Increased linear markings at the lung bases slightly worse on the left side. This may represent bibasilar linear atelectasis. Electronically Signed: Ron Saldana MD at 13:11 EDT ,
[2022-09-30 17:06] LABS: Absolute Lymphocyte Count 1.89 X10^3/uL (0.83-4.51); Absolute Neutrophil Count 4.4 X10^3/uL (2.0-7.7); Basophil# 0.05 X10^3/uL; Basophil% 0.7 % (0-1); Eosinophil# 0.24 X10^3/uL; Eosinophils% 3.3 % (0-5); Hematocrit 40.7 % (40-54); Hemoglobin 12.6 g/dL (13.0-16.5); Lymphocyte # 1.89 X10^3/ul (0.83-4.51); Mean Corpuscular Hgb 24.7 pg (27.0-32.0); Mean Corpuscular Volume 79.6 fL (80-94); Mean Platelet Vol. 11.4 fl (6.2-12.0); Monocyte# 0.68 X10^3/uL; Monocyte% 9.3 % (0-10); NRBC Flagged by Analyzer 0 % (0-5); Neutrophil # 4.39 X10^3/uL (2.7-7.7); Neutrophil % 60.3 % (47-70); Platelet Count 247 K/mm3 (150-450); RBC Distribution Width CV 15.2 % (11.6-14.6); RBC Distribution Width SD 44.1 fl (35.1-43.9); Red Blood Count 5.11 M/mm3 (4.6-6.2); White Blood Count 7.3 K/mm3 (4.4-11.0)
[2022-09-30 17:14] LABS: Vitamin D,25 Hydroxy 41.1 ng/mL
[2022-09-30 17:31] LABS: ALB/GLOB Ratio 0.9 RATIO (0.9-2.4); AST(SGOT) 14 U/L (15-37); Alanine Aminotransfer ALT/SGPT 17 U/L (16-61); Albumin, Serum 3.7 g/dL (3.2-5.0); Alkaline Phosphatase 90 U/L (45-117); Anion Gap 7 (5-15); BUN 19 mg/dL (7-18); BUN/Creat Ratio 16.8 RATIO (10-20); Chloride 106 mmol/L (98-107); Creatinine, Serum 1.13 mg/dL (0.70-1.30); EST Glomerular Filtration Rate 67 mL/min (>60); Est Glom Filt Rate - Afr Amer 80 mL/min (>60); Globulin 4.2 g/dL (2.2-4.2); Glucose 97 mg/dL (74-106); Potassium 3.9 mmol/L (3.5-5.1); Protein, Total 7.9 g/dL (6.4-8.2); Sodium Level 138 mmol/L (136-145); Thyroid Stim Hormone (TSH) 1.24 uIU/mL (0.358-3.74)
== END | disposition home or self-care (01) ==
PROVIDERS: PCP Family Medicine Geriatric Medicine; Referring Provider Family Medicine Geriatric Medicine; Visit Provider Family Medicine Geriatric Medicine
DX: E11.65 Type 2 diabetes mellitus with hyperglycemia (principal); I10 Essential (primary) hypertension; E55.9 Vitamin D deficiency, unspecified
CPT/HCPCS: 36415; 71046; 80053; 82306; 84443; 85025; 87635; 87804; 87807; C9803

== ENCOUNTER → 2022-12-29 | Outpatient (CLI) | payer MEDICARE, SELFPAY ==
[2022-12-29 16:01] LABS: PSA,Total- Diagnostic < 0.01 ng/mL (0.0-4.0)
== END | disposition home or self-care (01) ==
LOC: LAB 14:12
PROVIDERS: PCP Family Medicine Geriatric Medicine; Visit Provider Urology
DX: C61 Malignant neoplasm of prostate (principal)
CPT/HCPCS: 36415; 84153

== ENCOUNTER → 2023-01-05 | Outpatient (CLI) | payer MEDICARE, SELFPAY ==
--- NOTE | 2023-01-05 17:20 | RAD_ITS ---
STUDY: X-RAY - LUMBAR SPINE REASON FOR EXAM: Male, 77 years old. RIGHT SIDED SCIATICA TECHNIQUE: 5 view(s) of the lumbar spine were obtained. COMPARISON: 05/31/2019 FINDINGS: Normal lumbar lordosis. There is no substantial scoliosis. There is a normal alignment of the vertebrae. There is multilevel endplate spondylosis of the lumbar vertebrae. Normal disc space heights. Facet hypertrophy in the lower lumbar spine. The soft tissue structures are unremarkable. RAD/L/S Spine Min 4 Views IMPRESSION: Degenerative changes of the spine, as detailed above. MRI may be useful. Electronically Signed: Donnie Nelson MD at 23:18 EDT ,
== END | disposition home or self-care (01) ==
LOC: RAD 17:02
PROVIDERS: PCP Family Medicine Geriatric Medicine; Referring Provider Family Medicine Geriatric Medicine; Visit Provider Family Medicine Geriatric Medicine
DX: M54.31 Sciatica, right side (principal)
CPT/HCPCS: 72110

== ENCOUNTER → 2023-04-13 | Outpatient (CLI) | payer MEDICARE, SELFPAY ==
[2023-04-13 11:50] LABS: Absolute Lymphocyte Count 1.53 X10^3/uL (0.83-4.51); Absolute Neutrophil Count 3.8 X10^3/uL (2.0-7.7); Basophil# 0.08 X10^3/uL; Basophil% 1.3 % (0-1); Eosinophil# 0.24 X10^3/uL; Eosinophils% 3.8 % (0-5); Hematocrit 39.2 % (40-54); Hemoglobin 12.2 g/dL (13.0-16.5); Lymphocyte # 1.53 X10^3/ul (0.83-4.51); Lymphocyte % 24.4 % (19-41); Mean Corp Hgb Conc 31.1 g/dL (32-36); Mean Corpuscular Hgb 25.1 pg (27.0-32.0); Mean Corpuscular Volume 80.7 fL (80-94); Mean Platelet Vol. 10.8 fl (6.2-12.0); Monocyte# 0.55 X10^3/uL; Monocyte% 8.8 % (0-10); NRBC Flagged by Analyzer 0 % (0-5); Neutrophil # 3.82 X10^3/uL (2.7-7.7); Neutrophil % 60.9 % (47-70); Platelet Count 272 K/mm3 (150-450); RBC Distribution Width CV 15.4 % (11.6-14.6); RBC Distribution Width SD 45.1 fl (35.1-43.9); Red Blood Count 4.86 M/mm3 (4.6-6.2); White Blood Count 6.3 K/mm3 (4.4-11.0)
[2023-04-13 12:28] LABS: Vitamin D,25 Hydroxy 41.3 ng/mL
[2023-04-13 13:05] LABS: ALB/GLOB Ratio 0.9 RATIO (0.9-2.4); AST(SGOT) 16 U/L (15-37); Alanine Aminotransfer ALT/SGPT 19 U/L (16-61); Albumin, Serum 3.5 g/dL (3.2-5.0); Alkaline Phosphatase 74 U/L (45-117); Anion Gap 1 (5-15); BUN 18 mg/dL (7-18); BUN/Creat Ratio 16.2 RATIO (10-20); Calcium,Total 9.4 mg/dL (8.5-10.1); Chloride 107 mmol/L (98-107); Creatinine, Serum 1.11 mg/dL (0.70-1.30); EST Glomerular Filtration Rate 68 mL/min (>60); Est Glom Filt Rate - Afr Amer 82 mL/min (>60); Globulin 3.7 g/dL (2.2-4.2); Glucose 181 mg/dL (74-106); Potassium 4.1 mmol/L (3.5-5.1); Protein, Total 7.2 g/dL (6.4-8.2); Sodium Level 137 mmol/L (136-145); Thyroid Stim Hormone (TSH) 1.35 uIU/mL (0.358-3.74)
== END | disposition home or self-care (01) ==
LOC: LAB 10:48
PROVIDERS: PCP Family Medicine Geriatric Medicine; Referring Provider Family Medicine Geriatric Medicine; Visit Provider Family Medicine Geriatric Medicine
DX: E11.65 Type 2 diabetes mellitus with hyperglycemia (principal); I10 Essential (primary) hypertension; E55.9 Vitamin D deficiency, unspecified
CPT/HCPCS: 36415; 80053; 82306; 84443; 85025

== ENCOUNTER → 2023-10-14 | Outpatient (CLI) | payer MEDICARE, SELFPAY ==
[2023-10-14 10:09] LABS: Absolute Neutrophil Count 3.5 X10^3/uL (2.0-7.7); Basophil# 0.06 X10^3/uL; Eosinophil# 0.21 X10^3/uL; Eosinophils% 3.6 % (0-5); Hematocrit 40.9 % (40-54); Hemoglobin 12.6 g/dL (13.0-16.5); Lymphocyte % 24.3 % (19-41); Mean Corp Hgb Conc 30.8 g/dL (32-36); Mean Corpuscular Hgb 24.7 pg (27.0-32.0); Mean Platelet Vol. 10.7 fl (6.2-12.0); Monocyte# 0.58 X10^3/uL; Monocyte% 10.1 % (0-10); NRBC Flagged by Analyzer 0 % (0-5); Neutrophil # 3.49 X10^3/uL (2.7-7.7); Neutrophil % 60.5 % (47-70); Platelet Count 274 K/mm3 (150-450); RBC Distribution Width CV 15.2 % (11.6-14.6); RBC Distribution Width SD 44.2 fl (35.1-43.9); Red Blood Count 5.11 M/mm3 (4.6-6.2); White Blood Count 5.8 K/mm3 (4.4-11.0)
[2023-10-14 10:59] LABS: Vitamin D,25 Hydroxy 50.8 ng/mL
[2023-10-14 11:20] LABS: ALB/GLOB Ratio 0.9 RATIO (0.9-2.4); AST(SGOT) 13 U/L (15-37); Alanine Aminotransfer ALT/SGPT 15 U/L (16-61); Albumin, Serum 3.6 g/dL (3.2-5.0); Alkaline Phosphatase 72 U/L (45-117); Anion Gap 6 (5-15); BUN 14 mg/dL (7-18); BUN/Creat Ratio 11.1 RATIO (10-20); Calcium,Total 9.2 mg/dL (8.5-10.1); Chloride 107 mmol/L (98-107); Creatinine, Serum 1.26 mg/dL (0.70-1.30); EST Glomerular Filtration Rate 59 mL/min (>60); Est Glom Filt Rate - Afr Amer 71 mL/min (>60); Globulin 3.8 g/dL (2.2-4.2); Glucose 113 mg/dL (74-106); Potassium 4.3 mmol/L (3.5-5.1); Protein, Total 7.4 g/dL (6.4-8.2); Sodium Level 140 mmol/L (136-145); Thyroid Stim Hormone (TSH) 2.31 uIU/mL (0.358-3.74)
== END | disposition home or self-care (01) ==
LOC: POLAB3 09:57
PROVIDERS: PCP Family Medicine Geriatric Medicine; Visit Provider Family Medicine Geriatric Medicine
DX: E11.65 Type 2 diabetes mellitus with hyperglycemia (principal); E55.9 Vitamin D deficiency, unspecified; I10 Essential (primary) hypertension
CPT/HCPCS: 36415; 80053; 82306; 84443; 85025

== ENCOUNTER → 2024-01-25 | Outpatient (CLI) | payer MEDICARE, SELFPAY ==
--- NOTE | 2024-01-25 09:50 | RAD_ITS ---
INDICATION: Radiculopathy, lumbar region EXAMINATION/TECHNIQUE: X-RAY - XR Spine Lumbar 2 or 3 Views COMPARISON: Prior study dated: 04/08/2006 FINDINGS: VERTEBRAE: Preserved vertebral body height. No fracture. No spondylolisthesis. Preservation of the normal lumbar lordosis. Minimal levoscoliosis could be positional. DISCS: Disc spaces are maintained. Mild endplate spondylosis. No significant facet arthropathy. INCLUDED ABDOMEN: Atherosclerotic calcifications of the abdominal aorta. Surgical clips in the pelvic region. RAD/Lumbar Spine 2 or 3 Views IMPRESSION: Mild degenerative changes. Electronically Signed: Catracho Ha MD at 8:24 EST ,
== END | disposition home or self-care (01) ==
LOC: RAD 09:48
PROVIDERS: PCP Family Medicine Geriatric Medicine; Referring Provider Anesthesiology Pain Medicine; Visit Provider Anesthesiology Pain Medicine
DX: M54.16 Radiculopathy, lumbar region (principal)
CPT/HCPCS: 72100

== ENCOUNTER → 2024-04-14 | Outpatient (CLI) | payer MEDICARE, SELFPAY ==
[2024-04-14 09:11] LABS: Absolute Lymphocyte Count 1.52 X10^3/uL (0.83-4.51); Absolute Neutrophil Count 4.5 X10^3/uL (2.0-7.7); Basophil# 0.09 X10^3/uL; Basophil% 1.3 % (0-1); Eosinophil# 0.28 X10^3/uL; Hematocrit 42.8 % (40-54); Hemoglobin 13.6 g/dL (13.0-16.5); Lymphocyte # 1.52 X10^3/ul (0.83-4.51); Lymphocyte % 21.7 % (19-41); Mean Corp Hgb Conc 31.8 g/dL (32-36); Mean Corpuscular Hgb 25.4 pg (27.0-32.0); Mean Corpuscular Volume 79.9 fL (80-94); Mean Platelet Vol. 10.5 fl (6.2-12.0); Monocyte# 0.61 X10^3/uL; Monocyte% 8.7 % (0-10); NRBC Flagged by Analyzer 0 % (0-5); Neutrophil # 4.46 X10^3/uL (2.7-7.7); Neutrophil % 63.7 % (47-70); Platelet Count 265 K/mm3 (150-450); RBC Distribution Width CV 15.3 % (11.6-14.6); RBC Distribution Width SD 44.1 fl (35.1-43.9); Red Blood Count 5.36 M/mm3 (4.6-6.2)
[2024-04-14 09:39] LABS: Vitamin D,25 Hydroxy 57.9 ng/mL
[2024-04-14 09:56] LABS: AST(SGOT) 12 U/L (15-37); Alanine Aminotransfer ALT/SGPT 17 U/L (16-61); Albumin, Serum 3.7 g/dL (3.2-5.0); Alkaline Phosphatase 68 U/L (45-117); Anion Gap 8 (5-15); BUN 24 mg/dL (7-18); Calcium,Total 9.5 mg/dL (8.5-10.1); Chloride 104 mmol/L (98-107); Creatinine, Serum 1.33 mg/dL (0.70-1.30); EST Glomerular Filtration Rate 55 mL/min (>60); Est Glom Filt Rate - Afr Amer 66 mL/min (>60); Globulin 3.8 g/dL (2.2-4.2); Glucose 147 mg/dL (74-106); Potassium 4.5 mmol/L (3.5-5.1); Protein, Total 7.5 g/dL (6.4-8.2); Sodium Level 138 mmol/L (136-145)
[2024-04-14 11:41] LABS: Syphilis Antibodies Non-reactive; Vitamin B12 261 pg/mL (211-911)
== END | disposition home or self-care (01) ==
LOC: POLAB3 08:59
PROVIDERS: PCP Family Medicine Geriatric Medicine; Visit Provider Family Medicine Geriatric Medicine
DX: E11.65 Type 2 diabetes mellitus with hyperglycemia (principal); F01.50 Vascular dementia, unspecified severity, without behavioral disturbance, psychotic disturbance, mood disturbance, and anxiety; I10 Essential (primary) hypertension; E55.9 Vitamin D deficiency, unspecified; E53.8 Deficiency of other specified B group vitamins
CPT/HCPCS: 36415; 80053; 82306; 82607; 82746; 84443; 85025; 86780

== ENCOUNTER → 2024-05-24 | Outpatient (CLI) | payer MEDICARE, SELFPAY ==
--- NOTE | 2024-05-24 18:46 | CT_ITS ---
EXAM: CT brain without IV contrast CLINICAL HISTORY: VASCULAR DEMENTIA COMPARISON: 01/14/2021 TECHNIQUE: Multiple contiguous axial images of the brain were obtained without the administration of intravenous contrast. Two-dimensional coronal and sagittal reformatted images were reconstructed. Low-dose imaging technique was utilized. FINDINGS: No evidence of acute intracranial hemorrhage, midline shift or mass effect. No definite CT evidence of acute territorial cortical infarction. No hydrocephalus. Mild generalized cerebral atrophy and chronic small-vessel ischemic changes. Prior right craniotomy. Calvarium is otherwise intact. Paranasal sinuses and mastoid air cells are clear. CT/Brain/Head without Contrast IMPRESSION: 1. No acute intracranial abnormality. 2. Mild atrophy and chronic small-vessel ischemic disease. Reading Location: [facility]
== END | disposition home or self-care (01) ==
PROVIDERS: PCP Family Medicine Geriatric Medicine; Referring Provider Family Medicine Geriatric Medicine; Visit Provider Family Medicine Geriatric Medicine
DX: F01.50 Vascular dementia, unspecified severity, without behavioral disturbance, psychotic disturbance, mood disturbance, and anxiety (principal)
CPT/HCPCS: 70450

== ENCOUNTER → 2024-10-12 | Outpatient (CLI) | payer MEDICARE, SELFPAY ==
[2024-10-12 09:51] LABS: Hematocrit 39.7 % (40-54); Hemoglobin 12.5 g/dL (13.0-16.5); Immature Granulocytes Count 0.020 X10^3/uL (0.0-0.0); Mean Corp Hgb Conc 31.5 g/dL (32-36); Mean Corpuscular Volume 81.4 fL (80-94); Mean Platelet Vol. 10.6 fl (6.2-12.0); NRBC Flagged by Analyzer 0 % (0-5); Platelet Count 260 K/mm3 (150-450); RBC Distribution Width CV 15.0 % (11.6-14.6); RBC Distribution Width SD 45.0 fl (35.1-43.9); Red Blood Count 4.88 M/mm3 (4.6-6.2); White Blood Count 6.1 K/mm3 (4.4-11.0)
[2024-10-12 11:04] LABS: AST(SGOT) 18 U/L (<=37); Alanine Aminotransfer ALT/SGPT 11 U/L (<=46); Albumin, Serum 4.1 g/dL (3.4-4.8); Alkaline Phosphatase 79 U/L (40-129); Anion Gap 10 (5-15); BUN 21 mg/dL (4-19); BUN/Creat Ratio 17.5 RATIO (10-20); Calcium,Total 9.3 mg/dL (7.6-11.0); Carbon Dioxide 24.7 mmol/L (21.0-32.0); Chloride 104 mmol/L (98-108); Globulin 2.9 g/dL (2.2-4.2); Glucose 136 mg/dL (70-99); Potassium 5.0 mmol/L (3.3-5.1); Vitamin D,25 Hydroxy 46.9 ng/mL (30-100)
[2024-10-12 13:02] LABS: Creatinine, Urine (random) 87.00 mg/dL (39.00-259.00); Microalbumin,Random Urine 29.0 mg/L (<20 mg/L)
[2024-10-12 17:27] LABS: Xtra Tube Kwok EXTRA TUBE
== END | disposition home or self-care (01) ==
PROVIDERS: PCP Family Medicine Geriatric Medicine; Visit Provider Family Medicine Geriatric Medicine
DX: I12.9 Hypertensive chronic kidney disease with stage 1 through stage 4 chronic kidney disease, or unspecified chronic kidney disease (principal); E11.22 Type 2 diabetes mellitus with diabetic chronic kidney disease; E55.9 Vitamin D deficiency, unspecified; E78.5 Hyperlipidemia, unspecified; N18.9 Chronic kidney disease, unspecified
CPT/HCPCS: 36415; 80053; 82043; 82306; 82570; 84443; 85025

== ENCOUNTER → 2025-01-04 | Outpatient (CLI) | payer MEDICARE, SELFPAY ==
[2025-01-04 13:17] LABS: PSA,Total- Diagnostic < 0.02 ng/mL (0.00-4.00)
== END | disposition home or self-care (01) ==
LOC: LAB 11:13
PROVIDERS: PCP Family Medicine Geriatric Medicine; Referring Provider Urology; Visit Provider Urology
DX: C61 Malignant neoplasm of prostate (principal)
CPT/HCPCS: 36415; 84153